=== PATIENT | female | born 1980 | race Caucasian/White ===

== ENCOUNTER 2022-02-23 07:42 | Outpatient (REF) | payer BC, SELFPAY ==
[2022-02-23 08:06] LABS: MANUAL DIFF FLAG NO
[2022-02-23 08:31] LABS: Basophils Percent Auto 0.9 % (0-2); Eosinophils Percent Auto 0.6 % (0-4); Hematocrit 39.6 % (37.0-47.0); Hemoglobin 13.4 g/dl (12.0-16.0); Imm Gran Abs Auto 0.01 X10*3/uL (0.00-0.03); Imm Gran Pct Auto 0.3 % (0.0-0.4); Lymphocytes Absolute Auto 1.5 X10*3/uL (1.2-4.9); Lymphocytes Percent Auto 45.2 % (20-40); Mean Corpuscular HGB Conc 33.8 g/dl (31.0-35.0); Mean Corpuscular Hemoglobin 31.2 pg (27.0-33.0); Mean Corpuscular Volume 92.3 fL (80.0-98.0); Monocytes Absolute Auto 0.3 X10*3/uL (0.1-1.2); Monocytes Percent Auto 8.4 % (2-11); Neutrophils Absolute Auto 1.4 x10*3/uL (2.0-8.3); Neutrophils Percent Auto 44.6 % (45-73); Platelet Count 206 X10*3/uL (160-400); Red Blood Count 4.29 X10*6/uL (4.20-5.50); White Blood Count 3.2 X10*3/uL (4.8-10.8)
[2022-02-23 08:54] LABS: Alanine Aminotransferase 12 U/L (0-31); Albumin Level 4.4 g/dL (3.5-5.0); Alkaline Phosphatase 72 U/L (39-117); Anion Gap 11 (12-20); Aspartate Amino Transferase 19 U/L (5-31); Bilirubin Total 0.7 mg/dL (0.0-1.0); Blood Urea Nitrogen 11 mg/dL (9-16); Calcium 9.7 mg/dL (8.4-10.2); Carbon Dioxide 26 mmol/L (22-29); Chloride 106 mmol/L (96-108); Cholesterol 198 mg/dL; Estimated Glomerular Filt Rate > 60; Glucose Fasting 100 mg/dL (60-99); HDL Cholesterol 57 mg/dL; LDL Cholesterol Calculated 132 mg/dl; Potassium 4.3 mmol/L (3.3-5.1); Sodium 139 mmol/L (135-145); Total Protein 7.1 g/dL (6.5-8.0); Triglycerides 49 mg/dL
== END 2022-02-23 07:43 | disposition home or self-care (01) ==
LOC: HO.LAB 07:42
PROVIDERS: PCP Internal Medicine; Visit Provider Nurse Practitioner Family
DX: I10 Essential (primary) hypertension (principal); E78.00 Pure hypercholesterolemia, unspecified
CPT/HCPCS: 36415; 80053; 80061; 85025

== ENCOUNTER 2022-03-16 14:36 | Outpatient (REF) | payer BC, SELFPAY ==
[2022-03-16 14:46] LABS: MANUAL DIFF FLAG NO
[2022-03-16 15:32] LABS: Basophils Percent Auto 0.7 % (0-2); Eosinophils Percent Auto 0.7 % (0-4); Hemoglobin 13.3 g/dl (12.0-16.0); Imm Gran Abs Auto 0.01 X10*3/uL (0.00-0.03); Imm Gran Pct Auto 0.2 % (0.0-0.4); Lymphocytes Absolute Auto 1.9 X10*3/uL (1.2-4.9); Lymphocytes Percent Auto 30.8 % (20-40); Mean Corpuscular HGB Conc 33.3 g/dl (31.0-35.0); Mean Corpuscular Hemoglobin 30.4 pg (27.0-33.0); Mean Corpuscular Volume 91.3 fL (80.0-98.0); Monocytes Absolute Auto 0.4 X10*3/uL (0.1-1.2); Monocytes Percent Auto 6.5 % (2-11); Neutrophils Absolute Auto 3.8 x10*3/uL (2.0-8.3); Neutrophils Percent Auto 61.1 % (45-73); Platelet Count 244 X10*3/uL (160-400); Red Blood Count 4.38 X10*6/uL (4.20-5.50); Red Cell Distribution Width 11.8 % (11.0-16.0); White Blood Count 6.1 X10*3/uL (4.8-10.8)
[2022-03-16 16:00] LABS: Anion Gap 11 (12-20); Blood Urea Nitrogen 11 mg/dL (9-16); Calcium 9.8 mg/dL (8.4-10.2); Carbon Dioxide 28 mmol/L (22-29); Chloride 104 mmol/L (96-108); Estimated Glomerular Filt Rate > 60; Glucose Random 85 mg/dL (60-115); Potassium 4.3 mmol/L (3.3-5.1); Sodium 139 mmol/L (135-145)
== END 2022-03-16 14:37 | disposition home or self-care (01) ==
LOC: HO.LAB 14:36
PROVIDERS: PCP Internal Medicine; Visit Provider Nurse Practitioner Family
DX: D70.9 Neutropenia, unspecified (principal); I10 Essential (primary) hypertension
CPT/HCPCS: 36415; 80048; 85025

== ENCOUNTER 2022-04-05 13:57 | Outpatient (REF) | payer BC, SELFPAY ==
--- NOTE | 2022-04-05 16:15 | MHC.AU.ANR ---
Adult Audiological Evaluation Date of Visit: 04/05/22 Reason for Appointment: Audiological evaluation due to concern for decreased hearing. Ms. Moralez reports that her family feels she hasn't been hearing well for about five years and is often asking for repetition. She notes difficulties hearing in the car when her daughter is talking from the backseat. Otherwise she feels she hears well. Does patient feel they have a hearing loss?: Yes If Yes, Which Ear?: Both Ears When Was Hearing Difficulty First Noticed?: ~5 years ago Has hearing been tested previously?: No Hearing Handicap Inventory: HHIE SCORE: 8 Based on HHIE score, patient has: No perceived hearing handicap Medical History: Medical History: Seizure Disorder Medical History (Other): ~1986 Basilar Migraines, Suspected TIA in February 2022 Medication List: Lamictal, Lexapro, Folic Acid, Lipitor, Plavix, Aspirin Otoscopy: Right Ear: Unremarkable Left Ear: Unremarkable Tympanometry: Tympanometry performed due to: To assess integrity of the middle ear system Right Ear: Normal Middle Ear System (Type A) Left Ear: Normal Middle Ear System (Type A) Hearing Evaluation: Transducer(s) Used: Insert Earphones Method: Conventional Audiometry Stimuli Used: Pure Tones Right Ear: Description of Hearing: Normal hearing from 250-8000 Hz. Left Ear: Description of Hearing: Normal hearing from 250-8000 Hz. Speech Recognition Threshold (SRT): Method Used: Monitored Live Voice Stimuli Used: Spondee Words Right Ear: 5 dBHL Left Ear: 5 dBHL Word Discrimination: Method: Recorded Lists Word Lists Used: NU-6 Right Ear: 96% at 45 dBHL Left Ear: 100% at 45 dBHL QuickSIN: -2 dB SNR loss when presented binaurally at 55 dBHL, indicating normal ejsrcv-yu-wwvwl understanding abilties. Results indicated she May hear better than normals hear in noise Interpretation of Results: Today's evaluation indicates normal hearing sensitivity, normal middle-ear function, excellent speech understanding abilities in quiet at a soft conversational level, and excellent lldipl-xn-wkeuj understanding bilaterally. Recommendations: No further audiological action is indicated at this time. Audiological re-evaluation if changes are noted. Diagnosis: Primary Diagnosis: Z01.10 Hearing or vestibular exam without abnormal findings Secondary Diagnosis: H93.293 Abnormal Auditory Perception Services Performed: Services Performed: Pure Tone- Air (CPT 40533) Speech Audiometry Threshold, with Speech Recognition (CPT 39564) Tympanometry (CPT 90596) Unlisted Otorhinolaryngological Service or Procedure (CPT 41155) Signature: Provider: Annalisa Restrepo, CCC-A
== END 2022-04-05 13:58 | disposition home or self-care (01) ==
LOC: HO.SH 13:57
PROVIDERS: Visit Provider Nurse Practitioner Family
DX: Z01.118 Encounter for examination of ears and hearing with other abnormal findings (principal); H93.293 Other abnormal auditory perceptions, bilateral
CPT/HCPCS: 92552; 92556; 92567; 92700

== ENCOUNTER 2024-05-03 11:29 | Outpatient (AMB) | payer OTHER, SELFPAY ==
--- NOTE | 2024-05-03 11:40 | MHC.OFFWIV ---
Intake Vital Signs 05/03/24 11:49 Height 5 ft 7 in Weight 150 lb 4 oz BMI 23.5 BP 114/68 Blood Pressure Location Rt brachial Position Sitting Respiration 12 Pulse 80 Pulse Source Pulse Oximeter Pulse Oximetry (%) 97 Oxygen Delivery Method Room Air Intake Visit Reasons: est/ rash upper body and on legs Intake Note: Rash on upper body and legs. Patient Tobacco Use Status: Never used Tobacco Allergies No Known Allergies Allergy (Verified 05/03/24 11:42) Medication List - Last Reconciled 05/03/24 by PIERCE Mays anastrozole 1 mg PO DAILY atorvastatin 20 mg PO DAILY fluoxetine 40 mg PO DAILY folic acid 10 mg PO DAILY lamotrigine ER (Lamictal XR) 600 mg PO BEDTIME multivitamin 1 tab PO DAILY triamcinolone acetonide 0.1% 1 appl topical BID 10 days vitamins A and D 1 cap PO DAILY Do you need a note to return to daycare/school/sports/work: No HPI HPI Comments History of Present Illness Details This is a 43-year-old female with a past medical history of breast cancer, seizures , TIA, depression and anxiety presenting for a rash. She noticed the rash about 2 weeks ago. She described it as tiny bumps on the upper back, the back of her neck and spreading a little to the tops of her arms. It is not itchy or painful. She has been using several types of sunscreen when she is outside. No other new exposures. No fevers or chills. No treatments attempted. PFSH Surgical History No pertinent past surgical history Family History Father No problems noted. Mother No problems noted. Maternal Grandfather FH: prostate cancer Brother Pure hypercholesterolemia Family/Other FH: mental illness Maternal Uncle FH: mental illness Social History Housing: House Patient Tobacco Use Status: Never used Tobacco e-Cigarette/Vaping Use: Never Used Second Hand Smoke Exposure: No service: No Current occupational status: employed Current occupational exposures/hazards: No Cognitive needs: No Hearing needs: No Vision needs: Yes Review of Systems Const Details: Constitutional: No fever or chills ENT: No sneezing, congestion, runny nose or sore throat. Respiratory: No cough Physical Exam Vital Signs: Last Vital Signs Pulse 80 05/03/24 11:49 Resp 12 05/03/24 11:49 BP 114/68 05/03/24 11:49 Pulse Ox 97 05/03/24 11:49 Oxygen Delivery Method Room Air 05/03/24 11:49 BMI result Body Mass Index 23.5 Const Other: Constitutional: Alert, in no distress. Mouth/Throat: No oral lesions. No erythyema or exudates. Neck: Supple, Full range of motion. No lymphadenopathy. Skin: rash comprised of tiny papules on the upper back, neck and less prominently noted on the chest and upper arms Assessment & Plan Assessment & Plan (1) Dermatitis: Code(s): L30.9 - Dermatitis, unspecified Plan: Nonspecific appearing dermatitis. Wash areas with cleanser. Keep clean and dry. Do this after application of sunscreens and lotions and use hypoallergenic formulas. Rx Triamcinolone cream BID x 10 days to affected areas (do not apply to face). Topical steroid side effects reviewed. Follow up with primary care provider if there is no resolution or worsening symptoms. Medications: New triamcinolone acetonide 0.1% 1 appl topical BID 10 days 30 grams 0RF Coding Level of Care Code Est Pt Level 3 (28606) Diagnoses Dermatitis L30.9
[2024-05-03 11:49] VITALS: BP 114/68; PULSE 80; RESP 12; O2SAT 97; BMI 23.5
== END 2024-05-03 17:05 ==
PROVIDERS: PCP Internal Medicine; Visit Provider Physician Assistant Medical
DX: L30.9 Dermatitis, unspecified (principal)
CPT/HCPCS: 99213

== ENCOUNTER 2024-09-03 13:54 | Outpatient (AMB) | payer OTHER, SELFPAY ==
--- NOTE | 2024-09-03 13:52 | MHC.PC.OV ---
Vital Signs 09/03/24 14:07 Height 5 ft 7 in Weight 153 lb BMI 24.0 BP 90/60 Blood Pressure Location Rt brachial Position Sitting Pulse 64 Pulse Source Pulse Oximeter Pulse Oximetry (%) 99 Oxygen Delivery Method Room Air Intake Visit Reasons: markie from [facility] Intake Note: New patient visit Freight Caller Required: No Allergies No Known Allergies Allergy (Verified 09/03/24 13:53) Tobacco use date assessed: 09/03/24 Dental Screening Dental Screen Date: 09/03/24 Did you have a dental visit in the last 12 months?: Yes Did you have a dental problem in the last 6 months where you did not have access to dental care?: No Was dental information given to patient?: Patient has dentist HPI HPI Comments History of Present Illness Details This is a 43-year-old female with a past medical history of breast cancer, neutropenia, TIA, alcoholism in remission, focal and partial seizures and anxiety with depression presenting to [facility]. She transferred from Dr. Mcelroy at [facility]. She signed a release for medical records, but we have not received her recent medical records yet. She was diagnosed with breast cancer in 04/02/2022. She is followed by Dr. Childs. She has follow up every 6-[address] Resendez is her neurologist. No recent seizures. She is on lamotrigine. Thyroid nodule-Dr. Radha Harley. Two nondiagnostic biopsies. She had just had another ultrasound, and they are monitoring this. She has essential tremor of her upper extremities. She had an MRI of the brain for evaluation of symptoms, and this was normal. She has a telehealth therapist in [place] who is great. She is on fluoxetine 40 mg for anxiety and depression which is working well. Patient's , Justin, has metastatic prostate cancer. Currently doing well on his medications and PSA decreased significantly. Patient has a teenage daughter. Hyperlipidemia is treated with 20 mg of atorvastatin. ROS: Constitutional: No unexplained weight loss, fever, chills. Respiratory: No shortness of breath, cough or sputum production. Cardiovascular: No chest pain, chest pressure or chest discomfort. No palpitations or pedal edema. Gastrointestinal: No anorexia, nausea, vomiting or diarrhea. No abdominal pain Neurologic: No headache, dizziness, syncope Psychiatric: No SI/HI. Physical exam: Constitutional: Alert, in no distress. Neck: Supple, Full range of motion. No lymphadenopathy. Respiratory: Clear to auscultation. Cardiovascular: S1 S2 regular. No murmurs.. Psychiatric: Normal mood and affect [facility] Medical History (Updated 09/03/24 @ 17:54 by PIERCE Mays) Essential tremor Thyroid nodule Depression with anxiety Pure hypercholesterolemia Breast cancer Surgical History No pertinent past surgical history Family History Father No problems noted. Mother No problems noted. 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 Current occupational exposures/hazards: No Cognitive needs: No Hearing needs: No Vision needs: Yes Questionnaire Thrive Questionnaire Date Thrive assessed: 08/31/24 I am a: Patient What is your living situation today?: I have a steady place to live Within the past 12 months, did the food you bought not last and you didn't have the money to get more?: Never true Within the past 12 months, did you worry whether your food would run out before you got money to buy more?: Never true Do you have trouble paying for medicines?: No Do you have trouble getting transportation to medical appointments?: No Do you have trouble paying your heating and electricity bill?: No Do you have trouble taking care of your child, family member or friend?: No Do you have trouble with day-to-day activities such as bathing, preparing meals, shopping, managing finances, etc.?: No Are you currently unemployed and looking for a job?: No Are you interested in more education?: No Please select the resources that you would like help with: None Currently or been in a relationship where the following occur: No concerns reported THRIVE Score: 0 AUDIT C Alcohol Use Questionnaire (AUDIT-C) 1. How often do you have a drink containing alcohol?: Never 3. How often do you have six or more drinks on one occasion?: Never Total Score: 0 FERNANDA-7 AMB Questionnaire FERNANDA-7 Date FERNANDA - 7 assessed: 03/16/22 Feeling nervous, anxious, or on edge: 1 = Several days Not being able to stop or control worryin = Not at all Worrying too much about different things: 1 = Several days Trouble relaxin = Several days Being so restless that it is hard to sit still: 0 = Not at all Becoming easily annoyed or irritable: 1 = Several days Feeling afraid as if something awful might happen: 1 = Several days Total FERNANDA-7 score (0-4 normal; 5-9 mild; 10-14 moderate; 15-21 severe): 5 Source: Developed by Drs. Dipesh Woodard, Jocelyne Davalos, Rick Overton and colleagues, with an educational chris from [employer]. FERNANDA-7 Assessment Billing FERNANDA-7 Assessment Tool: FERNANDA-7 Assessment 14164 Physical exam (Primary Care) Vital Signs: Last Vital Signs Pulse 64 09/03/24 14:07 BP 90/60 09/03/24 14:07 Pulse Ox 99 09/03/24 14:07 Oxygen Delivery Method Room Air 09/03/24 14:07 BMI result Body Mass Index 24.0 Tobacco/Smoking Status: Tobacco use Status Tobacco use date assessed 09/03/24 09/03/24 14:11 Patient Tobacco Use Status Never used Tobacco 09/03/24 13:53 e-Cigarette/Vaping Use Never Used 09/03/24 13:53 Thrive Assessment: Date of Thrive Assessment Date Thrive assessed 08/31/24 09/03/24 13:53 Currently or been in a relationship where the following occur: No concerns reported Coding Level of Care Code Est Pt Level 4 (65428) Complex EM visit Add On G2211 Diagnoses Breast cancer C50.919 Focal and partial seizures G40.109 Pure hypercholesterolemia E78.00 Depression with anxiety F41.8 Thyroid nodule E04.1 Additional Codes FERNANDA-7 Assessment Billing - FERNANDA-7 Assessment Tool: FERNANDA-7 Assessment 68678 ([id number]) Assessment & Plan Assessment & Plan (1) Breast cancer: Code(s): C50.919 - Malignant neoplasm of unspecified site of unspecified female breast Category: Medical (2) Focal and partial seizures: Code(s): G40.109 - Localization-related (focal) (partial) symptomatic epilepsy and epileptic syndromes with simple partial seizures, not intractable, without status epilepticus Category: Medical (3) Pure hypercholesterolemia: Code(s): E78.00 - Pure hypercholesterolemia, unspecified Category: Medical (4) Depression with anxiety: Code(s): F41.8 - Other specified anxiety disorders Category: Medical (5) Thyroid nodule: Code(s): E04.1 - Nontoxic single thyroid nodule Category: Medical Plan Patient will have fasting labs done. She will schedule a physical exam. She will continue routine follow up with her specialists. Depression and anxiety are currently under control on fluoxetine. She is also in therapy. Continue current medications. Orders: Orders Lipid Panel Today C50.919 - Malignant neoplasm of unspecified site of unspecified female breast, D70.9 - Neutropenia, unspecified, E78.5 - Hyperlipidemia, unspecified, G40.109 - Localization-related (focal) (partial) symptomatic epilepsy and epileptic syndromes with simple partial seizures, not intractable, without status epilepticus, G45.9 - Transient cerebral ischemic attack, unspecified, Z13.6 - Encounter for screening for cardiovascular disorders Vitamin D 1,25 dihydroxy Today C50.919 - Malignant neoplasm of unspecified site of unspecified female breast, D70.9 - Neutropenia, unspecified, G40.109 - Localization-related (focal) (partial) symptomatic epilepsy and epileptic syndromes with simple partial seizures, not intractable, without status epilepticus, G45.9 - Transient cerebral ischemic attack, unspecified, Z13.6 - Encounter for screening for cardiovascular disorders Comprehensive Met. Panel Today C50.919 - Malignant neoplasm of unspecified site of unspecified female breast, D70.9 - Neutropenia, unspecified, G40.109 - Localization-related (focal) (partial) symptomatic epilepsy and epileptic syndromes with simple partial seizures, not intractable, without status epilepticus, G45.9 - Transient cerebral ischemic attack, unspecified, Z13.6 - Encounter for screening for cardiovascular disorders TSH reflex Free T4 Today C50.919 - Malignant neoplasm of unspecified site of unspecified female breast, D70.9 - Neutropenia, unspecified, G40.109 - Localization-related (focal) (partial) symptomatic epilepsy and epileptic syndromes with simple partial seizures, not intractable, without status epilepticus, G45.9 - Transient cerebral ischemic attack, unspecified, Z13.6 - Encounter for screening for cardiovascular disorders
[2024-09-03 14:07] VITALS: BP 90/60; PULSE 64; O2SAT 99; BMI 24.0
== END 2024-09-03 14:55 | disposition home or self-care (01) ==
PROVIDERS: PCP Physician Assistant Medical; Visit Provider Physician Assistant Medical
DX: C50.919 Malignant neoplasm of unspecified site of unspecified female breast (principal); G40.109 Localization-related (focal) (partial) symptomatic epilepsy and epileptic syndromes with simple partial seizures, not intractable, without status epilepticus; E78.00 Pure hypercholesterolemia, unspecified; F41.8 Other specified anxiety disorders; E04.1 Nontoxic single thyroid nodule

== ENCOUNTER → 2024-09-03 13:54 | Outpatient (BNVA) | payer OTHER, SELFPAY | PROVIDERS: PCP Physician Assistant Medical; Visit Provider Physician Assistant Medical | DX: C50.919 Malignant neoplasm of unspecified site of unspecified female breast (principal); G40.109 Localization-related (focal) (partial) symptomatic epilepsy and epileptic syndromes with simple partial seizures, not intractable, without status epilepticus; E78.00 Pure hypercholesterolemia, unspecified; F41.8 Other specified anxiety disorders; E04.1 Nontoxic single thyroid nodule | CPT/HCPCS: 96127 ==

== ENCOUNTER 2024-11-17 08:58 | Outpatient (REF) | payer OTHER, SELFPAY ==
--- OUTSIDE RECORDS SUMMARY | 2024-11-17 09:01 | XMS_ITS | Continuity of Care Document ---
Author Organization [facility] [address] [place] [address] Phone [phone] Care Team Providers Care Branch Officer Name Role Phone Nolvia Mcelroy M.D. Care Team Information Receive r [phone] Problems Active Problems Provider Date Multinodular goiter PIERCE Perales Onset: Anxiety disorder PIERCE Perales Onset: 10/19 Carcinoma of breast PIERCE Perales Onset: Hyperlipidemia PIERCE Perales Onset: 2022 Seizure disorder PIERCE Perales Onset: 10/19 Transient cerebral ischemia PIERCE Perales O nset: 10/19/2023 Social History Type Date Description Comments Sex Unknown Tobacco Use Start: Unknown Never Smoked Cigarettes Smoking Status Reviewed: 10/19/23 Never Smoked Cigaret uma ETOH Use Has consumed alcohol in the past Allergies and adverse reactions Active Allergies Criticality Reaction Severity Comments Date Emend Injection Unable to assess criticality Chest Tightness 10/19/2023 Medications Active Medications SIG Qnty Indications Ordering Provider Date Fluoxetine [id number] Tablets Take 3 Tablet By Mouth Daily Elise Ledezma M.D. 01/19/2024 Lamotrigine [id number] Tablets ER 24HR Take 2 Tablets By Mouth Every Day For 90 Days Lisa Resendez MD Atorvastatin [id number] Tablets Take 1 Tablet By Mouth Daily After Supper Nolvia Mcelroy M.D. Folic [id number] Tablets Take 1 Tablet By Mouth Every Day Lisa Resendez MD [id number] Tablets Take 1 Tablet By Mouth Every Day Unknown Vital Signs Date Vital Result Comment 07/18/2024 9:05am BP Systolic 110 mmHg BP Diastolic 62 mmHg Heart Rate 98 /min Height 67 inches 5'7 Weight 154.25 lb BMI (Body Mass Index) 24.2 kg/m2 Results Test Acquired Date Facility Test Result H/L Range N ote TSH+Free T4 07/18/2024 [facility] TSH 1.030 uIU/mL 0.450-4.50 0 T4,Free(Direct) 1.06 ng/dL 0.82- 1.77 Laboratory test finding 01/23/2024 [facility] TSH reflex to T4F 0.915 uIU/mL 0.450-4.50 0 Laboratory test finding 01/23/2024 [facility] Thyroid Peroxidase (Tpo) Ab <9 IU/mL 0-34 Medical Devices Description No Information Available Encounters Type Date Location Provider Dx Diagnosis Office Visit 07/18/2024 9:15a Main Office PIERCE Perales E04.2 Nontoxic mult inodular goiter Assessments Date Code Description Provider 07/18/2024 E04.2 Nontoxic multinodular goiter PIERCE Perales Plan of Treatment Future Appointment(s):* 01/17/2025 8:45 am - PIERCE Perales at Main Office 07/18/2024 - PIERCE Perales* E04.2 Nontoxic multinodular goiter* New Xrays: * Ultrasound Thyroid, Scheduled: 08/07/24 Functional Status Description No Information Available Mental Status Description No Information Available Referrals Description No Information Available
--- OUTSIDE RECORDS SUMMARY | 2024-11-17 09:01 | XMS_ITS | Data Portability ---
Author Organization [place] - [facility] Address [address] [place] [id number] Care Team Providers Care Activities Volunteer Name Role Phone SHAHIDA JONES Primary Care Provider [phone] Assessment Encounter Date Assessment Date Assessment LastModified by Organization Details LastModified Time 01/07/2020 01/07/2020 Overview/History : 39 yo female new to and this provider who presents for evaluation of flu like symptoms X1d; patient reports fever, chills, generalized body aches; nasal congestion, cough. Denies shortness of breath or chest tightness, abdominal pain, nausea, or vomiting. Patient reports taking tylenol and ibuprofen for her symptoms with good results Comorbidities: HLD, epilepsy Exam: young female, appears fatigued but otherwise well, no acute distress, non-toxic appearance; alert and oriented X4; ambulates independently without difficulty Mucous membranes are pink and moist without lesions; Oropharynx without erythema or exudate. Nasal mucosa is pink and moist; nasal passages are patent bilaterally; ear canals are clear without erythema or discharge bilaterally; TMs are pearly rosado, non-bulging, non-erythematous; no cervical lymphadenopathy mild tachycardia; Heart sounds are regular rate and rhythm; no audible murmurs, rubs, or gallops No signs of respiratory distress. Lungs are clear to auscultation in all fileds No edema, erythema or cyanosis of cyanosis DDx considered, but not limited to: URI sinusitis - most likely viral; sx for 1d Influenza - will order rapid flu Bronchitis - cough X1d Pneumonia - unlikely; cough is dry, lungs are clear to auscultations; cough x1d Work up/Results: rapid flu Plan/Discussion: - rapid flu positive for influenza type A - advised patient to rest; stay hydrated; tylenol and ibuprofen for pain and fever prn; - advised on flu precautions - patient was offered Tamiflu but refused after side effects were discussed - follow up with PCP as needed within 5-7 days or sooner if symptoms worsen or do not improve - advised when to seek immediate medical attention/911/ED - patient expressed understanding and agreed to tx plan In order to obtain further information and compare any laboratory results/values, I have accessed patient records on the [employer]. This information was pertinent in my medical decision making today. Time On Scene with Patient: 00:24:12 claribel Not available 01/07/2020 15:38:48 06/02/2020 06/02/2020 Overview/History :T is a 39-year-old female that contacted [facility] because she has been having body aches and fatigue for the past 36 hours. She was diagnosed with influenza in December. She also believes she had COVID 19 at that time. She recently had some blood work done and was entered into a study, she was told that she had antibodies for COVID-19. Exam: Physical exam is grossly benign. Patient is afebrile and hemodynamically stable. Lungs clear bilaterally, heart rate regular. Overall well appearing. DDx considered, but not limited to:Viral illness possible however patient does not have a fever and no other concerning symptoms other than body aches. Musculoskeletal strain considered but pt denies vigorous activity. body aches maybe due to menstrual cycle. Dehydration also considered however lab work checked in the home today is within normal limits. Work up/Results:Electro lytes within normal limits, normal kidney function. Plan/Discussion:I discussed with the patient that I did not find anything concerning on her physical exam, that her vital signs were normal and her lab work that I checked today is also normal. I reassured her that I do not feel that she has any acute process going on presently. No indication to swab for COVID-19 at this time however the patient tells me she plans to go on vacation to [place] and will need a test prior to this trip so she may consider contacting [facility] again for that. If symptoms linger or get worse should follow up with PCP. In order to obtain further information and compare any laboratory results/values, I have accessed old patient records. This information was pertinent in my medical decision making today. Time On Scene with Patient: 00:39:19 Not available 06/02/2020 16:46:38 Plan of Treatment Reminders Order Date Submit Date Provider Last Modified By Organization Details Last Modified Time Details Appointments None recorded. Lab rapid flu (A+B) 2019 020 claribel [facility] - Home, [address] [place], [address], 0 14:15:10 creatinin e, blood 2019 020 tom [facility] - Home, [address] [place], [address], 0 14:58:34 6+ iStat 2019 tom 31 [facility] - Home, [address] [place], [address], 0 14:58:33 Referral None recorded. Procedures None recorded. Surgeries None recorded. Imaging None recorded. Medication Orders Tessalon Perles 100 mg capsule 2019 020 INTERFACE [id number], [address] [place], [address], 0 14:15:15 Patient TargetsNo targets recorded. Patient Instructions Encounter Date Encounter Id Patient Instructions Last Modified By Organization Details Last Modified Time 01/07/2020 [id number] Influenza Discha rge Instructions Basic Information Influenza is a viral infection of the nose, throat and lungs. It usually comes on suddenly. The most common symptoms are chills, headache, fever, sore throat, dry cough, body aches, weakness and fatigue. Occasionally, people will have vomiting and diarrhea. Influenza is spread when droplets from an infected person are coughed or sneezed into the air, allowing healthy persons to breathe in these fine droplets and become infected. A patient with influenza will have millions of flu viruses contaminating their hands and face as well. The influenza virus can live up for 2 days on objects such as door knobs, grocery cart handles, elevator buttons, telephones, table tops etc. It is highly contagious. In addition, symptoms of influenza do not start until 2 days after the virus enters the body, so an infected person is contagious before they know that they are sick. A flu patient remains contagious for 24 hours after fever ends. Since it is a virus, antibiotics do not help. Instructions Medications: -Ibuprofen (or other non steroidal antiinflammatory drugs) and Tylenol are very important to help with the body aches and fever. People with influenza will often run high fevers for 5 days straight. High fevers are a major cause of dehydration in influenza, so trying to control fever is very important. Be sure to carefully read the bottles for the correct dosing (especially in children) instructions. -Nausea medicine may be prescribed: use as directed -Antiviral medicine may be prescribed. It is important to know that although these medicines are advertised to shorten the course of influenza, studies show that they reduce length of symptoms by only about ?? a day in adults and 1 day in children. Your provider will discuss whether this medicine is recommended for you. If it is prescribed, be sure to take the entire course as written. -Intravenous (IV) fluids: Your Provider may have determined that you need some IV fluids for your symptoms. IV fluids will help reduce fever and improve dehydration. Self Care: -Oral hydration. Drink plenty of fluids to stay hydrated. Fever itself can make you dehydrated so you really need to stay on top of this. Fluids such as broth and gatorade are recommended. -Solid food. You will very likely have a poor appetite for solid food: this is OK and as long as you can continue to take plenty of fluids, do not worry if you do not take solid food for a few days. -Rest. Get plenty of rest. Do not push yourself to do more than your body is telling you as this can make you sicker. -Prevent spread of the influenza. Cover your mouth and nose when you cough and sneeze. Try to maintain a 6 foot distance from others. Consider wearing a surgical mask, especially around family members who may have chronic illnesses. Wash your hands often. Don? t leave dirty tissues around the home. Seek Care Immediately if you -develop very rapid breathing or shortness of breath -become pale -pass out -cannot tolerate liquids by mouth -develop chest pain -become confused -develop rash -become confused -and for children, if they become so irritable that they are inconsolable have total resolution of your symptoms after 5-7 days and then become sick again with fever or any of the above symptoms If you have additional concerns or develop a change in your condition between 8am-10pm, please call [facility] at [phone] to help navigate your care. [email or web address] Not available 01/07/2020 14:17:07 Reason for Referral None Reported. Results Created Date Observation Date Name Description Value Unit Range Abnormal Flag Note LastModifiedBy Organization Detail LastModifiedTime 06/02/2020 6+ iStat Na 140 mmol/ L 138-14 6 Not Available Spr - Home [address] [place], [address], 06/02/2020 14:51:51 06/02/2020 6+ iStat K 3.7 mmol/ L 3.5-4. 9 Not Available Spr - Home [address] [place], [address], 06/02/2020 14:51:51 06/02/2020 6+ iStat cL 105 mmol/ L 98-109 Not Available Spr - Home [address] [place], [address], 06/02/2020 14:51:51 06/02/2020 6+ iStat BUN 11 mg/dL 8-26 Not Available Spr - Home [address] [place], [address], 06/02/2020 14:51:51 06/02/2020 6+ iStat glu 121 mg/dL 70-105 Not Available Spr - Home [address] [place], [address], 06/02/2020 14:51:51 06/02/2020 6+ iStat HCT 36 %_pcv 37-47 Not Available Spr - Home [address] [place], [address], 06/02/2020 14:51:51 06/02/2020 6+ iStat Hb 12.2 g/dL 12-17 Not Available Spr - Home [address] [place], [address], 06/02/2020 14:51:51 06/02/2020 creat inine , blood crea 0.7 mg/dL 0.6-1. 3 Not Available Spr - Home [address] [place], [address], 06/02/2020 14:51:45 01/07/2020 rapid flu (A+B) Flu A positi ve Not Available Spr - Home [address] [place], [address], 01/07/2020 13:58:48 01/07/2020 rapid flu (A+B) Flu B negati ve Not Available Spr - Home [address] [place], [address], 01/07/2020 13:58:48 01/07/2020 rapid flu (A+B) Control Visual ized / Valid Not Available [facility] - Home [address] [place], [address], 01/07/2020 13:58:48 Result Notes None recorded. Procedures Surgical History Date Name Laterality Status Provider Name and Address Organization Details Recorded Time 06/02/20 20 Venipuncture - DH completed JEREMY ESCOBEDO NP [address] [place], [address], [place] [facility] 06/02/2020 16:41:52 Imaging Results None recorded. Procedure Notes None recorded. Medical Equipment None Reported. Allergies No known drug allergies Medications Name Sig Start Date Stop Date Status Note LastModified by Organization Details LastModified Time azithromycin 250 mg tablet 01/07 completed Not Available Not Available Not Available phenazopyrid ine 200 mg tablet 01/07 completed Not Available Not Available Not Available terconazole 0.8 % vaginal cream 01/07 completed Not Available Not Available Not Available folic acid 400 mcg tablet 01/07 completed Not Available Not Available Not Available sulfamethoxa zole 800 mg-trimethop rim 160 mg tablet 01/07 completed Not Available Not Available Not Available benzonatate 100 mg capsule Take 1 capsule 3 times a day by oral route for 7 days. active Not Available Not Available No t Available folic acid 1 mg tablet active Not Available Not Available No t Available escitalopram 10 mg tablet active Not Available Not Available Not Available nitrofuranto in monohydrate/ macrocrystal s 100 mg capsule 01/07 completed Not Available Not Available Not Available lamotrigine ER 300 mg tablet,exten ded release 24 hr active Not Available Not Available Not Available selenium sulfide 2.5 % lotion 01/07 completed Not Available Not Available Not Available Vitals Date Recorded Oxygen saturation Oxygen saturation in Arterial blood by Pulse oximetry Body temperature Heart rate Respiratory rate Systolic blood pressure Diastolic blood pressure Provider Name and Address Organization Details Last Updated DateTime 0 98 % 98 % 99.1 [degF] 102 /min 17 /min 120 mm[Hg] 76 mm[Hg] Not Available [facility] 0 14:06:05 Date Recorded Respiratory rate Heart rate Body temperature Oxygen saturation Oxygen saturation in Arterial blood by Pulse oximetry Systolic blood pressure Diastolic blood pressure Provider Name and Address Organization Details Last Updated DateTime 0 14 /min 80 /min 97.1 [degF] 98 % 98 % 130 mm[Hg] 80 mm[Hg] Not Available [facility] 0 14:40:42 Social History Question Answer Notes LastModified by Organizat ion Details LastModified Time Tobacco Smoking Status Never Smoker PIERCE MARISCAL [address] [place], [address], [place] - [facility] 01/07/2020 14:25:48 Excessive Alcohol Or Drug Use No nyuzych Information not available 01/07/2020 Sex: Unknown Functional Status None recorded. Mental Status None recorded. Family History Relationship Description Onset Age of this Age Resolved Age Notes LastModified by Organization Details LastModified Time Father No current problems or disability [email or web address] Not available 01/07 14:00:45 Mother No current problems or disability [email or web address] Not available 01/07 14:00:45 Medical History Condition Response Diabetes N Coronary Artery Disease N High Cholesterol Y Cancer N Pulmonary Embolism N Stroke N Hypertension N Asthma N COPD N Depression N Kidney Disease N Gynecological HistoryNo gynecological history recorded. Obstetrics History GPAL:G 0 P 0 0 0 0 Past Encounters Encounter ID Performer Location Encounter Start Date Encounter Closed Date Diagnosis/Indication Diagnosis SNOMED-CT Code Diagnosis ICD10 Code Diagnosis Note [id number] PIERCE MARISCAL [facility] - HOME [address] [place] [address] 01/07/2020 13:55:47 01/08/2020 10:18:20 Influenza-like illness 86461484 B34.9 Dry cough 76655370 R05 Influenza caused by Influenza A virus 240326233 J09.X2 [id number] JEREMY ESCOBEDO NP [facility] - [facility] [address] [facility] [place] [address] 06/02/2020 14:27:53 06/02/2020 16:56:16 Malaise and fatigue 796302528 R53.81 Health Concerns Section Related Observation LastModified by Organization Detai ls LastModified Time None Recorded Concern Status LastModified by Organization Details LastModified Time None Recorded Advance Directives Directive None Recorded Payers Encounter Date Sequence Insurance Name Policy Number Policy Lawson Covered Member ID Lawson Member ID Guarantor Name 01/07/[address] [facility] Jenn Moralez [id number] Jenn Moralez 06/02/[address] [facility] [id number] Jenn Moralez [id number] Jenn Moralez Notes Date Note Type Note Provider Name and Address Organization Details Recorded Time 01/07/2020 text/html Mrs. Moralez is a [age] yo female new to and this provider who presents for evaluation of flu like symptoms X1d; patient reports fever, chills, generalized body aches; nasal congestion, cough. Denies shortness of breath or chest tightness, abdominal pain, nausea, or vomiting. Patient reports taking tylenol and ibuprofen for her symptoms with good results PIERCE MARISCAL [address], [place], [address], [place] - [facility] 01/07/2020 15:38:54 06/02/2020 text/html This is a 39-year-old female that is known to [facility] but new to this provider. She has a medical history significant for hyperlipidemia and epilepsy. She was seen by [facility] back in December for flu like symptoms. She ultimately was found to be positive for influenza. The patient tells me that at that time she believes she also may have been sick with COVID-19 as she lost her sense of taste and smell. She tells me that she recently had blood work done and was told that she had antibodies to COVID-19. She contacted [facility] today because she has been feeling fatigued and has been having muscle aches for the past 36 hours. She denies fevers but feels she may have had a chill. She has taken ibuprofen with some relief. No other cold symptoms, no shortness of breath and no GI symptoms. The patient does tell me that she is presently on her menses and feels that that may be why she is feeling tired and having body aches. JEREMY ESCOBEDO NP [facility] [place], [address], [place] - [facility] 06/02/2020 16:46:44 OBGyn Episode No OBEpisode recorded.
[2024-11-17 10:32] LABS: Alanine Aminotransferase 45 U/L (0-31); Albumin Level 4.5 g/dL (3.5-5.0); Alkaline Phosphatase 97 U/L (39-117); Anion Gap 10 (12-20); Aspartate Amino Transferase 38 U/L (5-31); Bilirubin Total 0.4 mg/dL (0.0-1.0); Blood Urea Nitrogen 10 mg/dL (9-16); Carbon Dioxide 29 mmol/L (22-29); Chloride 108 mmol/L (96-108); Cholesterol 157 mg/dL (<200); Estimated Glomerular Filt Rate > 60; Glucose Random 96 mg/dL (60-115); HDL Cholesterol 65 mg/dL (>40); LDL Cholesterol Calculated 84 mg/dL (<100); Potassium 4.6 mmol/L (3.3-5.1); Sodium 142 mmol/L (135-145); Total Protein 7.3 g/dL (6.5-8.0); Triglycerides 42 mg/dL (<150)
[2024-11-17 10:48] LABS: TSH reflex Free T4 1.31 uIU/mL (0.32-4.0)
[2024-11-22 01:54] LABS: VITAMIN D (1,25 OH) D3 41 pg/mL; Vit D (1,25-Dihydroxy) Total 41 pg/mL (18-72); Vitamin D (1,25 OH) D2 <8 pg/mL
== END 2024-11-17 08:59 | disposition home or self-care (01) ==
LOC: HO.LAB 08:58
PROVIDERS: PCP Physician Assistant Medical; Visit Provider Physician Assistant Medical
DX: E78.5 Hyperlipidemia, unspecified (principal); C50.919 Malignant neoplasm of unspecified site of unspecified female breast; D70.9 Neutropenia, unspecified; G45.9 Transient cerebral ischemic attack, unspecified; G40.109 Localization-related (focal) (partial) symptomatic epilepsy and epileptic syndromes with simple partial seizures, not intractable, without status epilepticus; Z13.6 Encounter for screening for cardiovascular disorders
CPT/HCPCS: 36415; 80053; 80061; 82652; 84443

== ENCOUNTER 2024-12-17 16:04 | Outpatient (AMB) | payer OTHER, SELFPAY ==
--- NOTE | 2024-12-17 16:08 | MHC.PC.OV ---
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 She was diagnosed with breast cancer in 04/02/2022. Patient in remission. She is followed by Dr. Childs. She was seen recently, and they also discussed elevated liver enzymes which we had messaged about over the portal. She denies abdominal pain, weight loss, anorexia, nausea, vomiting or jaundice. She is going to repeat the tests at the end of the month. Dr. Resendez is her neurologist. No recent seizures. She is on lamotrigine. Thyroid nodule-Dr. Radha Harley. Two nondiagnostic biopsies. They continue to monitor. She has essential tremor of her upper extremities. She had an MRI of the brain for evaluation of symptoms, and this was normal. She has a telehealth therapist in [place] who is great. She is on fluoxetine 40 mg for anxiety and depression which is working well. Patient's , Justin, has metastatic prostate cancer. Currently doing well on his medications and PSA decreased significantly. Patient has a teenage daughter. Patient also says that her therapist indicated she may have mild borderline personality disorder. She has done a lot of work herself over the years. Sober from alcohol for years. Hyperlipidemia is treated with [address] Indu Xiao is her brand coordinator. She is up to date. No family history of colon cancer-screening to begin age 45 unless otherwise indicated. She is referred to Dermatology for a routine skin exam. ROS: Constitutional: No unexplained weight loss, fever, chills, fatigue or night sweats. Eyes: No vision changes, blurry vision, double vision, eye pain, eye redness, eye discharge. ENT: No hearing loss, sneezing, congestion, runny nose or sore throat. Respiratory: No shortness of breath, cough or sputum production. Cardiovascular: No chest pain, chest pressure or chest discomfort. No palpitations or pedal edema. Gastrointestinal: No anorexia, nausea, vomiting or diarrhea. No abdominal pain or blood in stool. Genitourinary: No dysuria, hematuria, urinary frequency. Neurologic: No headache, dizziness, syncope, unilateral weakness, ataxia, numbness or tingling in the extremities. Musculoskeletal: No muscle pain, back pain, joint pain or swelling. Hematologic/Lymphatics: No bleeding or bruising. No painful lymph nodes. Skin: No rash or itching. Endocrine: No cold or heat intolerance. No polyuria or polydipsia. Psychiatric: No SI/HI. Physical exam: Constitutional: Alert, in no distress. Head: Normocephalic. Eyes: Pupils are equal, round and reactive to light. Extraocular muscles intact. Ear, Nose and Throat: Canals clear. TMs normal. Normal nasal mucosa. No nasal discharge. No oral lesions. Neck: Supple, Full range of motion. No lymphadenopathy. No palpable masses. Respiratory: Clear to auscultation. Cardiovascular: S1 S2 regular. No murmurs. No carotid bruits. Gastrointestinal: Abdomen soft, non-tender, non-distended. Normal bowel sounds. No palpable masses. Neurologic: No focal neurological deficits. Symmetric patellar reflexes. Moves all extremities spontaneously. Sensation intact bilaterally. Skin: No rashes. Musculoskeletal: No gross deformities. Normal range of motion. Extremities: Warm and well perfused. No clubbing, cyanosis or edema. 3+ peripheral pulses bilaterally. Psychiatric: Normal mood and affect [facility] Medical History (Updated 12/18/24 @ 16:01 by PIERCE Mays) Routine physical examination Elevated liver enzymes Essential tremor Thyroid nodule Depression with anxiety Pure hypercholesterolemia Breast cancer Surgical History No pertinent past surgical history Family History (Updated 12/17/24 @ 16:12 by Anh Haynes CMA) Father No problems noted. Mother No problems noted. 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 Current occupational exposures/hazards: No Cognitive needs: No Hearing needs: No Vision needs: Yes Questionnaire Thrive Questionnaire Date Thrive assessed: 12/10/24 I am a: Patient What is your living situation today?: I have a steady place to live Within the past 12 months, did the food you bought not last and you didn't have the money to get more?: Never true Within the past 12 months, did you worry whether your food would run out before you got money to buy more?: Never true Do you have trouble paying for medicines?: No Do you have trouble getting transportation to medical appointments?: No Do you have trouble paying your heating and electricity bill?: No Do you have trouble taking care of your child, family member or friend?: No Do you have trouble with day-to-day activities such as bathing, preparing meals, shopping, managing finances, etc.?: No Are you currently unemployed and looking for a job?: No Are you interested in more education?: No Please select the resources that you would like help with: None Currently or been in a relationship where the following occur: No concerns reported THRIVE Score: 0 AUDIT C Alcohol Use Questionnaire (AUDIT-C) 1. How often do you have a drink containing alcohol?: Never Total Score: 0 FERNANDA-7 AMB Questionnaire FERNANDA-7 Date FERNANDA - 7 assessed: 03/16/22 Feeling nervous, anxious, or on edge: 1 = Several days Not being able to stop or control worryin = Several days Worrying too much about different things: 1 = Several days Trouble relaxin = Several days Being so restless that it is hard to sit still: 0 = Not at all Becoming easily annoyed or irritable: 1 = Several days Feeling afraid as if something awful might happen: 1 = Several days Total FERNANDA-7 score (0-4 normal; 5-9 mild; 10-14 moderate; 15-21 severe): 6 Source: Developed by Drs. Dipesh Woodard, Jocelyne Davalos, Rick Overton and colleagues, with an educational chris from [employer]. Physical exam (Primary Care) Vital Signs: Last Vital Signs Pulse 73 12/17/24 16:14 BP 100/72 12/17/24 16:14 Pulse Ox 99 12/17/24 16:14 Oxygen Delivery Method Room Air 12/17/24 16:14 BMI result Body Mass Index 25.6 Tobacco/Smoking Status: Tobacco use Status Tobacco use date assessed 09/03/24 12/17/24 16:15 Patient Tobacco Use Status Never used Tobacco 12/17/24 16:15 e-Cigarette/Vaping Use Never Used 12/17/24 16:15 Thrive Assessment: Date of Thrive Assessment Date Thrive assessed 12/10/24 12/17/24 16:15 Currently or been in a relationship where the following occur: No concerns reported Coding Level of Care Code Est Pt Prev Care 40-64y(61579) Diagnoses Routine physical examination Z00.00 Elevated liver enzymes R74.8 Thyroid nodule E04.1 Depression with anxiety F41.8 Pure hypercholesterolemia E78.00 Breast cancer C50.919 Assessment & Plan Assessment & Plan (1) Routine physical examination: Code(s): Z00.00 - Encounter for general adult medical examination without abnormal findings Category: Medical Plan: Patient is seen today for a routine physical. As part of this visit we reviewed the following issues, which are considered and essential part of preventative health in this age group: - Annual Assistant Hall Director exam - Blood pressure screening - Osteoporosis prevention including calcium/vitamin D intake, weight bearing exercise & smoking cessation - Nutritional and exercise counseling - Counseling of injury prevention including fire prevention, smoke alarms and seat belt usage - Education about skin cancer - Recommendations about immunizations - Recommendation of an eye exam - Screening for substance abuse (2) Elevated liver enzymes: Code(s): R74.8 - Abnormal levels of other serum enzymes Category: Medical Plan: Patient has a history of alcohol abuse in remission for years. We discussed differential for elevated liver enzymes. She is going to repeat the tests at the end of December. Also check hep a, B and C serology. Advised patient that we can order liver ultrasound with elastography, however she would like to wait on repeat testing prior to making the decision to have imaging done. (3) Thyroid nodule: Code(s): E04.1 - Nontoxic single thyroid nodule Category: Medical Plan: Followed by endocrinology. Continued surveillance. (4) Depression with anxiety: Code(s): F41.8 - Other specified anxiety disorders Category: Medical Plan: Stable. Continue therapy and SSRI. (5) Pure hypercholesterolemia: Code(s): E78.00 - Pure hypercholesterolemia, unspecified Category: Medical Plan: Continue atorvastatin. Recommended low-cholesterol diet. (6) Breast cancer: Code(s): C50.919 - Malignant neoplasm of unspecified site of unspecified female breast Category: Medical Plan: Continue management with surveillance per specialists. Plan Follow up in 6 months. Orders: Orders Hepatitis A IgM 12/17/24 R74.8 - Abnormal levels of other serum enzymes Hepatitis A,B,C Profile 12/17/24 R74.8 - Abnormal levels of other serum enzymes Referrals Dermatology Referral Z12.83 - Encounter for screening for malignant neoplasm of skin
[2024-12-17 16:14] VITALS: BP 100/72; PULSE 73; O2SAT 99; BMI 25.6
--- OUTSIDE RECORDS SUMMARY | 2024-12-17 17:18 | XMS_ITS | Continuity of Care Document ---
Author Organization [facility] Address [address] [place] [address]- Care Team Providers Care Collections Officer Name Role Phone Not on Staff, PCP Primary Care Physician Unavail able Encounter [facility] Date(s): 10/24/24 - 11/23/24 [facility] [address] [place] [id number] Attending Physician: Montez Delaney Admitting Physician: Montez Delaney Referring Physician: Montez Delaney Encounter Type: Triage Allergies, Adverse Reactions, Alerts Substance Criticality Severity Reaction Reaction Severity Status Emend for Injection chest ti ghtness SOB Active Immunizations Given and Recorded Vaccine Date Status Refusal Reason influenza virus vaccine, inactivated 08/30/23 Geoff rded influenza virus vaccine, inactivated 08/21/22 Geoff rded influenza virus vaccine, inactivated 08/20/21 Geoff rded influenza virus vaccine, inactivated 08/09/20 Geoff rded influenza virus vaccine, inactivated 08/10/19 Geoff rded influenza virus vaccine, inactivated 08/11/18 Geoff rded influenza virus vaccine, inactivated 08/13/16 Geoff rded influenza virus vaccine, inactivated 08/18/15 Geoff rded pneumococcal 23-valent vaccine 11/10/22 Given pneumococcal 13-valent vaccine 08/23/22 Given tetanus/diphtheria/pertussis, acel(Tdap) 02/09/22 Recorded SARS-CoV-2 (COVID-19) mRNA-1273 vaccine 09/30/21 R ecorded SARS-CoV-2 (COVID-19) mRNA-1273 vaccine 12/18/20 R ecorded SARS-CoV-2 (COVID-19) mRNA-1273 vaccine 11/20/20 R ecorded Medications acetaminophen 325 mg oral capsule 2 capsule = 650 mg, By Mouth, Every 4 hours, PRN Pain , Moderate, # 90 capsule, 0 Refills, Maintenance, 09/27/23 8:58:00 AM EST, Capsule, [facility]/pharmacy #[id number], Partial fill upon patient request if the prescription is for a schedule II opioid drug., 170.18, cm, 09/27/23 7:45:00 EST, Height, 68.18, kg,09/26/23 11:05:00 EST, Dry Weight Start Date: 09/27/23 Status: Ordered Quantity: 90.0 Unit: capsule Repeat number: 1 anastrozole 1 mg oral tablet 1 tablet, By Mouth, Daily, # 90 tablet, 3 Refills, Maintenance, 02/14/24 3:01:00 PM EDT, [id number], 170, cm, 01/03/24 15:29:00 EST, Height, 68.5, kg, 01/03/24 15:29:00 EST, Dry Weight Start Date: 02/14/24 Status: Ordered Quantity: 90.0 Unit: tablet Repeat number: 1 atorvastatin 20 mg oral tablet See Instructions, TAKE 1 TABLET BY MOUTH DAILY AFTER SUPPER, # 90 tablet, 1 Refills, Maintenance, 07/30/24 2:43:00 PM EDT, [id number], 170, cm, 04/30/24 15:07:00 EDT, Height, 68.6, kg, 04/03/24 14:31:00 EDT, Dry Weight Start Date: 07/30/24 Status: Ordered Quantity: 90.0 Unit: tablet Repeat number: 1 Calcium And Vitamin D Combination By Mouth, Daily, 0 Refills, Maintenance, 09/26/23 10:59:00 AM EST, Partial fill upon patient request if the prescription is for a schedule II opioid drug. Start Date: 09/26/23 Status: Ordered Repeat number: 1 D3 = 2,000 units, By Mouth, Daily, 0 Refills, Maintenance, 05/02/23 1:58:00 PM EDT, Partial fill upon patient request if the prescription is for a schedule II opioid drug. Start Date: 05/02/23 Status: Ordered Repeat number: 1 FLUoxetine 40 mg oral capsule 1 capsule = 40 mg, By Mouth, Daily, # 90 capsule, 0 Refills, Maintenance, 08/14/24 9:39:00 PM EDT, Capsule, [facility]/pharmacy #[id number], Partial fill upon patient request if the prescription is for a schedule II opioid drug., 170, cm, 08/03/24 14:33:00 EDT, Height, 68.3, kg, 08/03/24 14:33:00 EDT, Dry Weight Start Date: 08/14/24 Status: Ordered Quantity: 90.0 Unit: capsule Repeat number: 1 folic acid 1 mg oral tablet 90 tablet, Refills 0, 05/19/22 12:18:00 AM EDT, Partial fill upon patient request if the prescriptionis for a schedule II opioid drug. Start Date: 05/19/22 Status: Ordered Repeat number: 1 ibuprofen 800 mg oral tablet 800 mg, 1, tablet, By Mouth, Every 8 hours, # 90 tablet, Refills 0, Tot. Refills 0, Maintenance, 09/27/23 8:58:00 AM EST, Route to Pharmacy Electronically, [facility]/pharmacy #[id number], Partial fill upon patient request if the prescription is for a schedule II opioid drug., 170.18, cm, 09/27/23 7:45:00 EST, Height, 68.18, kg, 09/26/23 11:05:00 EST, Dry Weight Start Date: 09/27/23 Status: Ordered Quantity: 90.0 Unit: tablet Repeat number: 1 LaMICtal XR 300 mg oral tablet, extended release 2 tablet = 600 mg, By Mouth, Daily, # 60 tablet, 0 Refills, Maintenance, 04/08/22 1:06:00 PM EDT, [facility], Partial fill upon patient request if the prescription is for a schedule II opioid drug. Start Date: 04/08/22 Status: Ordered Quantity: 60.0 Unit: tablet Repeat number: 1 Problem List Condition Confirmation Course Effective Dates Status H ealth Status Informant Acute left-sided back pain with sciatica Confirmed Active Anxiety disorder Confirmed Active Ataxia Confirmed 03/08/22 Active Carcinoma of breast Confirmed 04/22/22 Active History of left breast cancer Confirmed Active Hyperlipidemia Confirmed Active Breast cancer Confirmed Active Anxiety with depression Confirmed Active Multiple thyroid nodules Confirmed Active Knee pain, right Confirmed Active Partial seizure Confirmed 04/29/22 Active Rib pain on left side Confirmed Active Seizure disorder Confirmed Active Transient cerebral ischemia Confirmed 03/30/22 Active Social History Social History Type Response Smoking Status Never (less than 100 in lifetime) entered on: 04/08/22 Sex Sex Representation Female (finding) Patient Care team information Care Team Personnel Name: Purvi Ross RN Position: [facility] Onco RN Member Role: Primary Care Nurse Name: Pat Baltazar RN Position: [facility] Onco RN Member Role: Primary Care Nurse Name: Gilda Bruno RN Position: [facility] Onco RN Member Role: Primary Care Nurse Name: Not on Staff, PCP Position: [facility] Physician (General Medicine) Member Role: PCP Name: Abdirahman Vargas RN Position: [facility] Onco RN Member Role: Primary Care Nurse Name: Savi Abraham RN Position: [facility] Onco RN Member Role: Primary Care Nurse Care Team Related Persons Name: KADIE ESTES Name: SILVER CANTU Insurance Providers Guarantor name: MANUELA ALONDRA Health Plan Information #: [address]: [facility] Member Number: NA Policy Number: NA Group Number: NA
--- OUTSIDE RECORDS SUMMARY | 2024-12-17 17:18 | XMS_ITS | Clinical Summary ---
Author Organization [facility], Address [address] [place] [address] Phone Care Team Providers Care Manager Mobile Name Role Phone Jenn De La Cruz MD Primary Care Provider [phone] Allergies No known active allergies Medications escitalopram (LEXAPRO) 10 MG tablet Take 10 mg by mouth 1 (one) time each day Active FOLIC ACID PO Take by mouth Active lamoTRIgine ER 300 MG tablet sustained-releas e 24 hour Take by mouth Take 2 tablets- 600mg Active Active Problems Problem Noted Date Diagnosed Date Focal onset epileptic seizure 04/29/2022 Overview (04/29/2022): Partial focal seizure diagnosed during ; on medications and stable Carcinoma of breast 04/22/2022 Overview (04/22/2022): Left breast Anxiety 04/22/2022 Transient cerebral ischemia 03/30/2022 Ataxia 03/08/2022 Overview (04/30/2022): Last Assessment & Plan: Current NIHSS score is 0 with only finding on exam minimal horizontal nystagmus. Per the ER clinician, she did have difficulty with tandem gait. No other focal cerebellar signs. She is afebrile and hemodynamically stable here, with unclear etiology of fever at home. No recent upper respiratory congestion or illness. SARS-CoV-2 RNA testing negative. No tinnitus. Differential diagnosis includes CVA, seizure, migrainous phenomenon, and peripheral vertigo (i.e. secondary to process such as BPPV, M??ni??re's, or vestibular neuritis). CT of the head without hemorrhage or acute pathology and CT angiogram without large vessel stenosis or retrievable thrombus. 1. Observation on the medical floor, continuous EKG monitoring, neurochecks every 4 hours 2. MRI of the brain to evaluate for acute ischemia 3. Further stroke workup such as echocardiogram pending MRI results 4. EEG to rule out ongoing epileptiform activity; continue lamotrigine for now 5. Check ESR/CRP, TSH, and hemoglobin A1c 6. Continue aspirin 81 mg daily 7. Check lipid panel and consider starting statin based on workup 8. Teleneurology input appreciated, will follow up after above studies are resulted 9 PT/OT evaluations 10. The patient has passed a bedside swallow evaluation and will be allowed to have a cardiac prudent diet Social History Tobacco Use Types Packs/Day Years Used Date Smoking Tobacco: Never Smokeless Tobacco: Never Alcohol Use Standard Drinks/Week Comments Yes 0 (1 standard drink = 0.6 oz pur e alcohol) occas Comments Unknown Sex and Gender Information Value Date Recorded Sex Assigned at Not on file Legal Sex Female 11:11 AM EDT Gender Identity Not on file Sexual Orientation Not on file Last Filed Vital Signs Vital Sign Reading Time Taken Comments Blood Pressure 106/71 04/30/2022 9:50 AM EDT Pulse 89 04/30/2022 9:50 AM EDT Temperature 36.2 ??C (97.1 ??F) 04/30/2022 9:50 AM ED T Respiratory Rate 16 04/30/2022 9:50 AM EDT Oxygen Saturation 98% 04/30/2022 9:50 AM EDT Inhaled Oxygen Concentration - - Weight 65.8 kg (145 lb) 04/30/2022 9:50 AM EDT Height 170.2 cm (5' 7 ) 04/30/2022 9:50 AM EDT Body Mass Index 22.71 04/30/2022 9:50 AM EDT Plan of Treatment Health Maintenance Due Date Last Done Comments Pneumococcal Vaccine: Pediat rics (0 to 5 Years) and At-Risk Patients (6 to 64 Years) (1 of 2 - PCV) 1986 Hepatitis B Vaccine (1 of 3 - 19+ 3-dose series) 12/26 Influenza Vaccine (#1) 2024 Insurance [facility] Care Teams Manager Mobile Relationship Specialty Start Date End Date Jnen De La Cruz MD [address] [place] [id number] PCP - General Internal Medicine 04/28/22
== END 2024-12-17 17:07 | disposition home or self-care (01) ==
PROVIDERS: PCP Physician Assistant Medical; Visit Provider Physician Assistant Medical
DX: Z00.00 Encounter for general adult medical examination without abnormal findings (principal); C50.919 Malignant neoplasm of unspecified site of unspecified female breast; R74.8 Abnormal levels of other serum enzymes; E04.1 Nontoxic single thyroid nodule; F41.8 Other specified anxiety disorders; E78.00 Pure hypercholesterolemia, unspecified

== ENCOUNTER → 2024-12-17 16:04 | Outpatient (BNVA) | payer OTHER, SELFPAY | PROVIDERS: PCP Physician Assistant Medical; Visit Provider Physician Assistant Medical ==

== ENCOUNTER 2024-12-28 13:10 | Outpatient (REF) | payer OTHER, SELFPAY ==
[2024-12-28 14:58] LABS: Alanine Aminotransferase 39 U/L (0-31); Albumin Level 4.4 g/dL (3.5-5.0); Alkaline Phosphatase 96 U/L (39-117); Aspartate Amino Transferase 37 U/L (5-31); Bilirubin Direct 0.2 mg/dL (0.0-0.5); Bilirubin Total 0.5 mg/dL (0.0-1.0); Total Protein 7.5 g/dL (6.5-8.0)
[2024-12-29 03:49] LABS: HBS Num1 2.81 mIU/mL (0-7.99); HBc Num1 0.09 S/CO (0.00-0.79); HBsAGNum1 0.31 S/CO (0.00-0.99); Hepatitis A Antibody IgM 0.17 Index (0-0.79); Hepatitis B Core Antibody Nonreactive (Nonreactive); Hepatitis B Surface Antigen Negative (Negative); ~HepC Num1 0.07 S/CO (0.00-0.79); ~Hepatitis A Antibody IgM Nonreactive (Nonreactive); ~Hepatitis B Surface Antibody NONREACTIVE (Nonreactive); ~Hepatitis C Antibody Nonreactive (Nonreactive)
[2024-12-29 03:53] LABS: Hepatitis A Antibody IgM 0.15 Index (0-0.79); ~Hepatitis A Antibody IgM Nonreactive (Nonreactive)
== END 2024-12-28 13:11 | disposition home or self-care (01) ==
LOC: HO.LAB 13:10
PROVIDERS: PCP Physician Assistant Medical; Visit Provider Physician Assistant Medical
DX: R74.8 Abnormal levels of other serum enzymes (principal)
CPT/HCPCS: 36415; 80076; 86704; 86706; 86709; 86803; 87340

== ENCOUNTER 2025-01-31 08:01 | Outpatient (REF) | payer OTHER, SELFPAY ==
--- NOTE | ~2025-01-31 | US_ITS ---
EXAMINATION: US ABDOMEN LIMITED WITH LIVER ELASTOGRAPHY HISTORY: R74.8 - Abnormal levels of other serum enzymes TECHNIQUE: Real-time grayscale ultrasound imaging of the right upper quadrant was performed and images were reviewed. COMPARISON: There are no prior studies for comparison. FINDINGS: Liver: The right lobe of the liver measures 17.1 cm in size. The left lobe of the liver measures 12.1 cm in size. The liver demonstrates normal homogeneous echotexture. No focal mass or intrahepatic biliary ductal dilatation is identified. There is normal hepatopedal flow in the portal vein. Ultrasound elastography of the liver was performed with 10 separate measurements of the liver parenchyma with the patient in the supine position. Measurements were obtained approximately 2 cm below Irene's capsule and perpendicular to the capsule. Images are of satisfactory quality. The median shear wave velocity is 0.94 m/s. The interquartile range/median (IQR/median) is 0.29. Gallbladder and biliary tree: There are multiple shadowing calculi in the gallbladder. Additional polyps versus adherent calculi are noted along the gallbladder wall. There is no wall thickening or pericholecystic fluid. There is no sonographic Polanco sign. The common bile duct is normal in caliber measuring 2 mm. Right Kidney: The right kidney measures 12.3 cm in length. The right kidney is unremarkable, without evidence of masses, hydronephrosis, or calculi. Pancreas: The pancreatic head, neck, and body are unremarkable. The pancreatic tail is obscured by bowel gas. Abdominal aorta and inferior vena cava: The visualized portions of the abdominal aorta and inferior vena cava are normal in caliber. There is no free fluid in the right upper quadrant. US/US abdomen lewis w elastography IMPRESSION: Borderline hepatomegaly. Cholelithiasis and possible gallbladder polyps. The median shear wave velocity in the liver is 0.94 m/s, corresponding to a median liver stiffness of 2.7 kPa. The IQR/median value is 0.29. This is indicative of a poor quality data set, and the estimated liver stiffness may be unreliable. Findings are indicative of a normal elastography value with a low likelihood of severe fibrosis or cirrhosis. REFERENCE: Society of Radiologists in Ultrasound Liver Stiffness Thresholds (2020): LIVER STIFFNESS THRESHOLDS: *Shear wave velocity less than 1.3 m/s (Liver Stiffness equal or less than 5 kPa): High probability of being normal. *Shear wave velocity less than 1.7 m/s (Liver Stiffness less than 9 kPa): In the absence of other known clinical signs, rules out compensated advanced chronic liver disease. *Shear wave velocity between 1.7-2.1 m/s (Liver Stiffness 9-13 kPa): Suggestive of compensated advanced chronic liver disease but need further test for confirmation. *Shear wave velocity between 2.1-2.4 m/s (Liver Stiffness 13-17 kPa): Rules in compensated advanced chronic liver disease. *Shear wave velocity greater than 2.4 m/s (Liver Stiffness over 17 kPa): Suggestive of clinically significant portal hypertension. QUALITY OF DATA SET: *IQR/Median value equal or less than 0.15 implies a quality data set. *IQR/Median value over 0.15 implies a poor quality data set. SIGNIFICANT CHANGE FROM PRIOR EXAM: Significant change if liver stiffness measurement is 10% or greater from prior exam. OTHER CONSIDERATIONS: The stage of liver fibrosis may be overestimated in the setting of acute hepatitis, liver inflammation, elevated liver function tests, hepatic vascular congestion, obstructive cholestasis, non-fasting state, and infiltrative diseases such as amyloidosis and lymphoma. In some patients with NAFLD, the liver stiffness thresholds for compensated advanced chronic liver disease may be lower. In causes other than viral hepatitis and NAFLD, liver stiffness thresholds are not well established. Electronically signed by: Dipesh Soliman MD 01/31/2025 09:23 AM EDT
--- OUTSIDE RECORDS SUMMARY | 2025-01-31 08:05 | XMS_ITS | Data Portability ---
Author Organization [place] - [facility] Address [address] [place] [address] Care Team Providers Care Integrated Marketing Intern Name Role Phone SHAHIDA JONES Primary Care Provider [phone] Assessment Encounter Date Assessment Date Assessment LastModified [...] :T is a 39-year-old female that [facility] because she has been having body aches [...] she plans to go on vacation to [place] and will need a test prior to this trip so she may consider contacting [facility] again for that. If symptoms linger or get worse should follow up with PCP. In order to obtain further information and compare any laboratory results/values, I have accessed old patient records. This information was pertinent in my medical decision making today. Time On Scene with Patient: 00:39:19 [email or web address] Not available 06/02/2020 16:46:38 Plan of Treatment Reminders Order Date Submit Date Provider Last Modified By Organization Details Last Modified Time Details Appointments None recorded. Lab creatinin e, blood 2019 tom [facility], [address] [place], [address], 0 14:58:34 6+ iStat 2019 020 tom 31 [facility] - Home, [address] [place], [address], 0 14:58:33 rapid flu (A+B) 2019 claribel [facility] - Home, [address] [place], [address], 0 14:15:10 Referral None recorded. Procedures None recorded. Surgeries None recorded. Imaging None recorded. Medication Orders Tessalon Perles 100 mg capsule 2019 020 INTERFACE [id number], [address] [place], [address], 0 14:15:15 Patient TargetsNo targets recorded. Patient Instructions Encounter Date Encounter Id Patient Instructions Last Modified By Organization Details Last Modified Time 01/07/2020 [id number] Influenza Discha rge Instructions Basic Information Influenza [...] in your condition between 8am-10pm, [facility] at [phone] to help navigate your care. [email or web address] Not available 01/07/2020 14:17:07 Reason for Referral None Reported. Results Created Date Observation Date Name Description Value Unit Range Abnormal Flag Note LastModifiedBy Organization Detail LastModifiedTime 06/02/2006/02/2020 6+ iStat Na 140 mmol/ L 138-14 6 Not Available [facility] [address] [place], [address], 06/02/2020 14:51:51 06/02/2006/02/2020 6+ iStat K 3.7 mmol/ L 3.5-4. 9 Not Available [facility] [address] [place], [address], 06/02/2020 14:51:51 06/02/20 20 06/02/2020 6+ iStat cL 105 mmol/ L 98-109 Not Available [facility] [address] [place], [address], 06/02/2020 14:51:51 06/02/2006/02/2020 6+ iStat BUN 11 mg/dL 8-26 Not Available [facility] [address] [place], [address], 06/02/2020 14:51:51 06/02/2006/02/2020 6+ iStat glu 121 mg/dL 70-105 Not Available [facility] [address] [place], [address], 06/02/2020 14:51:51 06/02/2006/02/2020 6+ iStat HCT 36 %_pcv 37-47 Not Available [facility] [address] [place], [address], 06/02/2020 14:51:51 06/02/2006/02/2020 6+ iStat Hb 12.2 g/dL 12-17 Not Available [facility] [address] [place], [address], 06/02/2020 14:51:51 06/02/20 20 06/02/2020 creat inine , blood crea 0.7 mg/dL 0.6-1. 3 Not Available [facility] [address] [place], [address], 06/02/2020 14:51:45 01/07/20 20 01/07/2020 rapid flu (A+B) Flu A positi ve Not Available [facility] [address] [place], [address], 01/07/2020 13:58:48 01/07/20 20 01/07/2020 rapid flu (A+B) Flu B negati ve Not Available [facility] [address] [place], [address], 01/07/2020 13:58:48 01/07/20 20 01/07/2020 rapid flu (A+B) Control Visual ized / Valid Not Available [facility] [address] [place], [address], 01/07/2020 13:58:48 Result Notes None recorded. Procedures Surgical History Date Name Laterality Status Provider Name and Address Organization Details Recorded Time 06/02/20 Venipuncture - completed JEREMY ESCOBEDO NP [address] [place], [address], [place] [facility] 06/02/2020 16:41:52 Imaging Results None recorded. Procedure [...] /min 120 mm[Hg] 76 mm[Hg] Not Available [facility] 0 14:06:05 Date Recorded Respiratory rate Heart rate Body temperature Oxygen saturation Oxygen saturation in Arterial blood by Pulse oximetry Systolic blood pressure Diastolic blood pressure Provider Name and Address Organization Details Last Updated DateTime 0 14 /min 80 /min 97.1 [degF] 98 % 98 % 130 mm[Hg] 80 mm[Hg] Not Available [facility] 0 14:40:42 Social History Question Answer Notes LastModified by Organizat ion Details LastModified Time Tobacco Smoking Status Never Smoker PIERCE MARISCAL [address] [place] [address], [address], [place] [facility] 01/07/2020 14:25:48 Excessive Alcohol [...] available 01/07 14:00:45 Medical History Condition Response Coronary Artery Disease N Depression N COPD N Cancer N Stroke N High Cholesterol Y Kidney Disease N Diabetes N Asthma N Pulmonary Embolism N Hypertension N Gynecological HistoryNo gynecological history recorded. Obstetrics History GPAL:G 0 P 0 0 0 0 Past Encounters Encounter ID Performer Location Encounter Start Date Encounter Closed Date Diagnosis/Indication Diagnosis SNOMED-CT Code Diagnosis ICD10 Code Diagnosis Note [id number] [facility]ER[facility] MARISCAL [facility] [address] [facility] [place] [address] 01/07/2020 13:55:47 01/08/2020 10:18:20 Influenza-like illness 22206561 B34.9 Dry cough 57242873 R05 Influenza caused by Influenza A virus 067903417 J09.X2 [id number] JEREMY ESCOBEDO NP [facility] [address] [place] [address] 06/02/2020 14:27:53 06/02/2020 16:56:16 Malaise and fatigue 466547731 R53.81 Health Concerns Section Related Observation LastModified by Organization Detai ls LastModified Time None Recorded Concern Status LastModified by Organization Details LastModified Time None Recorded Advance Directives Directive None Recorded Payers Encounter Date Sequence Insurance Name Policy Number Policy Lawson Covered Member ID Lawson Member ID Guarantor Name 01/07/[address] [facility] Jenn Moralez [id number] Jenn Moralez 06/02/[address] [facility] [id number] Jenn Moralez [id number] Jenn Moralez Notes Date Note Type [...] symptoms with good results PIERCE MARISCAL [address] [place], [address], [place] [facility] 01/07/2020 15:38:54 06/02/2020 text/html This is a 39-year-old female that is known to [facility] but new to this provider. She has a medical history significant for hyperlipidemia and epilepsy. She was seen by [facility] back in December for flu like symptoms. [...] and having body aches. JEREMY ESCOBEDO NP [address], [place], [address], [place] [facility] 06/02/2020 16:46:44 OBGyn Episode No OBEpisode recorded.
--- OUTSIDE RECORDS SUMMARY | 2025-01-31 08:05 | XMS_ITS | Patient Health Record ---
Author Organization [facility] Address [address] [place] [address] Care Team Providers Care Supervisor Painting Name Role Phone KIN () INDERJITVARGAS Primary Care Provider U BLANCA Shields Unavailable [phone] Allergies No Known Allergies Reason For Referral No Information Medications Medication SIG (Take, Route, Frequency, Duration) Notes Start Date End Date Status Folic Acid 1 MG 1 tablet Orally Once a day Active Multivitamin Active lamoTRIgine ER 300 MG (Prior Auth#:[id number]) Oral for 90 Active Atorvastatin Calcium 20 MG TAKE 1 TABLET BY MOUTH DAILY AFTER SUPPER Oral for 90 Days Active miSOPROStol 200 MCG as directed Orally 8-12 hrs prior to appointment for 1 days 02/06/2024 Active Fluoxetine 30mg Active Arimidex 1 MG 1 tablet Orally Once a day for 30 day(s) Active Lupron 3.75 monthly Active Social History Tobacco Use: Social History Observation Description Date Details (start date - stop date) Never Smoker NA - NA Tobacco Use/Smoking Question Answer Notes Are you a nonsmoker Alcohol Screen (Audit-C) Question Answer Notes Did you have a drink containing alcohol in the p ast year? No Points 0 Interpretation Negative Tobacco use other than smoking: Question Answer Notes Are you an other tobacco user? No Problems Problem Type SNOMED Code ICD Code Onset Dates Problem Status W/U Status Risk Notes Problem Excessive and frequent menstruation (574546193) Excessive and frequent menstruation with regular cycle (N92.0) Active confirmed Problem Postmenopausal bleeding (43143583) Postmenopausal bleeding (N95.0) Active confirmed Problem Malignant neoplasm of lower-inner quadrant of female breast (117627744) Malignant neoplasm of lower-inner quadrant of left female breast (C50.312) Active confirmed Problem Anxiety disorder (710246230) Anxiety disorder, unspecified (F41.9) Active confirmed Problem Hypoactive sexual desire disorder (103807435) 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) Active confirmed Problem Epilepsy (17628831) Epilepsy, unspecified, not intractable, without status epilepticus (G40.909) Active confirmed Problem Irregular Menstruation (45106650) Other specified irregular menstruation (N92.5) Active confirmed Problem Abnormal uterine bleeding (56521463417149) Abnormal uterine and vaginal bleeding, unspecified (N93.9) Active confirmed Problem COVID-19 (306862472) COVID-19 (U07.1) Active confirmed Vital Signs Temperature 97.9 degrees Fahrenheit 02/06/2024 Blood pressure diastolic 72 mm Hg 02/06/2024 Height 67 in 02/06/2024 Blood pressure systolic 100 mm Hg 02/06/2024 Weight 148 lbs 02/06/2024 BMI 23.18 kg/m2 02/06/2024 Encounters Encounter Location Date Provider Diagnosis [address] [address] 02/06/2024 BLANCA PRITCHARD Encounter for gynecological examination (general) (routine) without abnormal findings Z01.419 ; Encounter for screening mammogram for malignant neoplasm of breast Z12.31 and Abnormal uterine and vaginal bleeding, unspecified N93.[address] [address] 02/24/2024 BLANCA PRITCHARD Postmenopausal bleed ing N95.[address] [address] 02/21/2024 BLANCA PRITCHARD Abnormal uterine and vaginal bleeding, unspecified N93.9 Assessments Encounter Date Diagnosis (ICD Code) Assessment Notes Treatment Notes Treatment Clinical Notes Section Notes 02/06/2024 Encounter for gynecological examination (general) (routine) without abnormal findings (ICD-10 - Z01.419) Discussed cervical cancer screening with either cytology alone every 3 years or high risk HPV co-testing every 5 years as per ASCCP guidelines. Advised continued annual pelvic exams. Patient encouraged to increase her level of exercise. SBE technique encouraged/tau ght. Patient reminded when annual mammogram is due. 02/06/2024 Encounter for screening mammogram for malignant neoplasm of breast (ICD-10 - Z12.31) 02/21/2024 Abnormal uterine and vaginal bleeding, unspecified (ICD-10 - N93.9) 02/24/2024 Postmenopausal bleeding (ICD-10 - N95.0) 02/06/2024 Abnormal uterine and vaginal bleeding, unspecified (ICD-10 - N93.9) Plan Of Treatment Pending Test Test Name Order Date Sonohysterogram 02/06/2024 Urinalysis 12/14/2019 COMPLETE BLOOD COUNT 04/14/2021 FREE TESTOSTERONE 12/06/2018 TESTOSTERONE 12/06/2018 THIN PREP,HPV,JANEEN IF HPV+ (>29YR)(SCRN) 11/29/2017 MM Digital Screening Mammogram 3D 2021 MM Digital Screening Mammogram 3D 2022 MM Digital Screening Mammogram 3D 2023 Next Appt Details Provider Name:BLANCA Ackerman, 02/11/2025 08:00:00 AM, [address] [place] [address], [address], [place], [address], Insurance Providers Payer Name Payer Address Payer Phone Subscriber Number Group Number Insured Name Patient Relationship to Insured Coverage Start Date Coverage End Date [facility] [employer] [address] [place], [place] [id number] MANUELA BARTON Self - patient is the insured Medical (General) History Medical History History ICD Code Epilepsy, unspecified, not intractable, without status epilepticus G40.909 Anxiety disorder, unspecified F41.9 Hypoactive sexual desire disorder F52.0 Decreased libido R68.82 Malignant neoplasm of lower-inner quadra nt of left female breast C50.312 COVID-19 U07.1 Surgical History Surgery Date(Month/Year) Sclero therapy (spider viens) 11/2018 left breast biopsy - grade 1 invasive ductal carcinoma, +axillary mets 03/2022 left breast lumpectomy/senti jesse node - grade 1 invasive ductal carcinoma, +axillary mets; ER/HI+, Her2/mateus negative 10/2022 all lymphnodes removed (23 ) bypass 01/03 23 Bilateral salpingo-oophorectomy 09/2023 Hospitalization History Reason Date(Month/Year) childbirth as a child - 3 episodes of m igraines that caused her to temporarily lose sight, and lose consciousness
--- OUTSIDE RECORDS SUMMARY | 2025-01-31 08:05 | XMS_ITS | Continuity of Care Document ---
Author Organization [facility] Address [address] [place] [address]- Care Team Providers Care Health Center Assistant Name Role Phone Polina Ventura Primary Care Physician [phone] En[place] [facility] Date(s): 12/13/24 - 01/12/25 [facility] [address] [place] [address] Encounter Type: Triage Allergies, Adverse Reactions, Alerts [...] Refills, Maintenance, 09/27/23 8:58:00 AM EST, Capsule, [id number], Partial fill upon patient request if the prescription is for a schedule II opioid drug., 170.18, cm, 09/27/23 7:45:00 EST, Height, 68.18, kg,09/26/23 11:05:00 EST, Dry Weight Start Date: 09/27/23 Status: Ordered Quantity: 90.0 Unit: capsule Repeat number: 1 anastrozole 1 mg oral tablet 1 tablet, By Mouth, Daily, # 90 tablet, 3 Refills, Maintenance, 02/14/24 3:01:00 PM EDT, [facility], 170, cm, 01/03/24 15:29:00 EST, Height, 68.5, kg, 01/03/24 15:29:00 EST, Dry Weight Start Date: 02/14/24 Status: Ordered Quantity: 90.0 Unit: tablet Repeat number: 1 atorvastatin 20 mg oral tablet See Instructions, TAKE 1 TABLET BY MOUTH DAILY AFTER SUPPER, # 90 tablet, 1 Refills, Maintenance, 07/30/24 2:43:00 PM EDT, [facility], 170, cm, 04/30/24 15:07:00 EDT, Height, 68.6, [...] Refills, Maintenance, 08/14/24 9:39:00 PM EDT, Capsule, [id number], Partial fill upon patient request if [...] 8:58:00 AM EST, Route to Pharmacy Electronically, [id number], Partial fill upon patient request if [...] Team Personnel Name: Purvi Ross RN Position: [facility] Onco RN Member Role: Primary Care Nurse Name: Polina Ventura Position: Reference Physician Member Role: PCP Address: [address] [place] [address] Telecom: Name: Pat Baltazar RN Position: S Onco RN Member Role: Primary Care Nurse Name: Gilda Bruno RN Position: S Onco RN Member Role: Primary Care Nurse Name: Abdirahman Vargas RN Position: S Onco RN Member Role: Primary Care Nurse Name: Savi Abraham RN Position: S Onco RN Member Role: Primary Care Nurse Care Team Related Persons Name: KADEI ESTES Name: SILVER CANTU Insurance Providers Guarantor name: MANUELA CANTU [facility] Information #: 1 Payer: [facility] Member Number: NA Policy Number: NA Group Number: NA
--- OUTSIDE RECORDS SUMMARY | 2025-01-31 08:05 | XMS_ITS ---
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 Physical Medications Medication SIG (Take, Route, Frequency, Duration) Notes Start Date End Date Status Multivitamin Active Folic Acid 1 MG 1 tablet Orally Once a day Active Atorvastatin Calcium 20 MG TAKE 1 TABLET BY MOUTH DAILY AFTER SUPPER Oral for 90 Days Active lamoTRIgine ER 300 MG (Prior Auth#:[id number]) Oral for 90 Active miSOPROStol 200 MCG as directed Orally 8-12 hrs prior to appointment for 1 days 02/06/2024 Active Fluoxetine 30mg Active Lupron 3.75 monthly Active Arimidex 1 MG 1 tablet Orally Once a day for 30 day(s) Active Social History Tobacco Use: Social History [...] Problem Status W/U Status Risk Notes Problem Abnormal uterine bleeding ([id number]) Abnormal uterine and vaginal bleeding, unspecified (N93.9) Active confirmed Vital Signs Temperature 97.9 degrees Fahrenheit 02/06/20 24 Blood pressure systolic 100 mm Hg 02/06/20 24 Blood pressure diastolic 72 mm Hg 024 Height 67 in 02/06/2024 Weight 148 lbs 02/06/2024 BMI 23.18 kg/m2 02/06/2024 Encounters Encounter Location Date Provider Diagnosis [facility] [address] [place] [address] 02/06/2024 BLANCATiffanie PRITCHARD Encounter for gynecological examination (general) (routine) [...] malignant neoplasm of breast (ICD-10 - Z12.31) 02/06/2024 Abnormal uterine and vaginal bleeding, unspecified (ICD-10 - N93.9) Plan Of Treatment Medication Medication Name Sig Start Date Stop Date Notes miSOPROStol 200 MCG as directed Orally 8 -12 hrs prior to appointment for 1 days 02/06/2024 Treatment Notes Assessment Notes Encounter for gynecological examination (general) (routine) without abnormal findings Discussed cervical cancer screening with either cytology alone every 3 years or high risk HPV co-testing every 5 years as per ASCCP guidelines. Advised continued annual pelvic exams. Patient encouraged to increase her level of exercise. SBE technique encouraged/taught. Patient reminded when annual mammogram is due. Pending Test Test Name Order Date Sonohysterogram 02/06/2024 MM Digital Screening Mammogram 3D 2023 Next Appt Details Follow Up: 1 Year, Reason: Y early Brand Strategist Exam Provider Name:BLANCATiffanie Ackerman, 02/11/2025 08:00:00 AM, [address], [address], [place], [address], Progress Notes * STEVE CANTU:1980 ([age] yo F)Acc No.[id number]:02/06/2024 PROGRESS NOTES Patient:JENN MOCK Provider:?BLANCA PRITCHARD MD :1980???Age:43 Y???Sex:Female D ate:02/06/2024 Address:[address] [place], [place] [id number] Pcp:AKIRA SANDERSON Subjective: * Chief Complaints: * ???Annual SILVERWARE WASHER Physical * HPI: ???Constitutional:? 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 ? She has been in state of good health since her last exam. She had a BSO this year. She has the following concerns: she reports one episode of brownish vaginal discharge during exercise a few weeks ago. ? She has received the Moderna Covid-19 vaccine. ? Relationship status: for 15 years. Her was recently diagnosed with Stage 4 Prostate Cancer and Li-Fraumeni syndrome. Her daughter does not have the mutation. She is not sexually active. Sexual partner(s): male. She does not wish to have STI testing. ? She does not report vaginal dryness. She does have hot flashes/night sweats - tolerable. ? The patient has never had an abnormal pap smear. Her most recent pap smear was 02/03/23 - NIL, neg HR HPV. Next due for cotesting in 2027. ? She has been diagnosed with breast cancer in the left breast and axillary node. She does not have a family history of breast cancer. Her last mammogram was 09/21/23. She also had a breast MRI on 10/18/23, as ordered by her doctor at the [facility]. ? The patient does exercise. She exercises x 5 days/week by walking/jogging on the treadmill (interval training). * ROS:?Annual Brand Strategist Exam ROS:?Bowel habit changes?denies.?Bladder symptoms?denies.?Vaginal discharge, unusual?admits,?one episode of dark brown discharge during exercise.?Vaginal itch or odor?denies.?abnormal bleeding?denies.?weight or appetite changes?denies.?Chest pains, SOB?denies.?depression? admits,?on Prozac, denies SI/HI.?Breast:?Denies?Breast lump.?Denies?Nipple discharge.?Gastrointestinal:?Denies?Blood in stool.?Hematology:?Denies?Swollen glands.?Genitourinary:?Denies?Blood in urine.?Skin:?Patient denies?changing moles.?Psychiatric:?Admits?Anxiety,?Sees a therapist.? * Medical History:? * Brand Strategist History:?/ Para?11/14.?Sexual activity?currently sexually active, with men.?Last Pap Smear:?11/29/17 NIL, NEG HRHPV.?Mammogram:?09/21/23 50-75% density, 03/12/2022 50-75% density, 03/02/2021 , 50- 75% density.?Abnormal Pap Smear:?none.?LMP and menses?Vale.?History of STD's:?none.? Control:?vasectomy.?Gardasil:?has not had vaccine.?SILVERWARE WASHER HISTORY MISC.?BRCA negative.? * OB History:?Total pregnancies?.? # 1:?normal spontaneous vaginal delivery (), 10/13/2009, Reny, 9lb 10oz, partial focal seizures.? * Surgical History:?Sclero the rapy (spider viens) 11/2018left breast biopsy - grade 1 invasive ductal carcinoma, +axillary mets 03/2022left breast lumpectomy/sentinel node - grade 1 invasive ductal carcinoma, +axillary mets; ER/SD+, Her2/mateus negative ll lymphnodes removed (23 ) bypass ilateral salpingo-oophorectomy 09/2023 * Hospitalization/Major Diagno stic Procedure:?as a child - 3 episodes of migraines that caused her to temporarily lose sight, and lose consciousness childbirth * Family History:?Mother: dieter fiore 70 yrs, hypothyroid.?Father: alive 72 yrs, high cholesterol, prostate cancer.?Maternal Grand Father: , Colon cancer in his late 80's.?Spouse: alive 49 yrs, Stage 4 Prostate Cancer and Li-Fraumeni syndrome {Li-Fraumeni syndrome is an inherited autosomal dominant disorder that is manifested by a wide range of malignancies that appear at an unusually early age [1,2]. Li-Fraumeni syndrome is also known as the Sarcoma, Breast, Leukemia, and Adrenal Gland (SBLA) cancer syndrome and as heritable tumor protein p53 gene (TP53)- related cancer syndrome [3]. }.? Brother - Jad - 1976 - obese, high cholesterol, high triglycerides Sister - June - 1982 - well (twins) Sister - Arina - 1982 - well (twins). * Social History:?Tobacco Use:?Tobacco Use/Smoking?Are you a?nonsmoker ?Tobacco use other than smoking?Are you an other tobacco user??No ???Sexual History:?Details of Sexual History?Are you sexually active??Yes ???Drugs/Alcohol:?Drugs?Have you used drugs other than those for medical reasons in the past 12 months??Yes ?Marijuana??Yes Rare gummy ?Alcohol Screen (Audit-C)?Did you have a drink containing alcohol in the past year??No ?Points?0 ?Interpretation?Negative ???Miscellaneous:?Children: yes. ?no Domestic violence. ?Exercise: yes, 4-5 tmes wekly. ?Home smoke detector use: yes, smoke detectors, carbon monoxide detector. ?Housing: owns a home. ?Living with: spouse, daughter. ?Marital status: , Christopher. ?Natural support system: yes. 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 ?Pets: none. ?no Sexual abuse. ?Sexually active: yes, monogamous relationship. ?no Verbal abuse. * Medications:?TakingFluoxetin e , Notes: 30mgArimidex 1 MG Tablet 1 tablet Orally Once a dayLupron , Notes: 3.75 monthlyFolic Acid 1 MG Tablet 1 tablet Orally Once a dayMultivitamin lamoTRIgine ER 300 MG Tablet Extended Release 24 Hour (Prior Auth#:[id number]) Oral Atorvastatin Calcium 20 MG Tablet TAKE 1 TABLET BY MOUTH DAILY AFTER SUPPER Oral Taking Fluoxetine , Notes: 30mgTaking Arimidex 1 MG Tablet 1 tablet Orally Once a dayTaking Lupron , Notes: 3.75 monthlyTaking Folic Acid 1 MG Tablet 1 tablet Orally Once a dayTaking Multivitamin Taking lamoTRIgine ER 300 MG Tablet Extended Release 24 Hour (Prior Auth#:[id number]) Oral Taking Atorvastatin Calcium 20 MG Tablet TAKE 1 TABLET BY MOUTH DAILY AFTER SUPPER Oral DiscontinuedEscitalopram Oxalate 10 MG Tablet (Prior Auth#:[id number]) Oral Iron 325 (65 Fe) MG Tablet 1 tablet Orally Once a dayVyleesi 1.75 MG/0.3ML Solution Auto-injector (Prior Auth#:[id number]) Subcutaneous Medication List reviewed and reconciled with the patientDiscontinued Escitalopram Oxalate 10 MG Tablet (Prior Auth#:[id number]) Oral Discontinued Iron 325 (65 Fe) MG Tablet 1 tablet Orally Once a dayDiscontinued Vyleesi 1.75 MG/0.3ML Solution Auto-injector (Prior Auth#:[id number]) Subcutaneous Medication List reviewed and reconciled with the patient * Allergies:?N.K.D.A.no[Allerg ies Verified] Objective: * Vitals:?Ht: 67 in, Wt:148 lb s, BMI:23.18 Index, BP:100/72 mm Hg, Temp:97.9 F. * Examination: ???General Examination: ?GENERAL APPEARANCE:?in no acute distress, well developed, well nourished, polisher and buffer present in room.?HEAD:?normocephalic, atraumatic.?NECK/THYROID:?neck supple, full range of motion, thyroid normal.?LYMPH NODES:?no axillary or supraclavicular adenopathy.?SKIN:? normal, good turgor, no rashes, no suspicious lesions.?BREASTS:?normal, no dimpling, no discharge, no drainage, no masses palpable bilaterally, nontender, left breast with surgical scar in lower midline.?ABDOMEN:? soft, non-tender, non distended without masses or hepatosplenomegay.?RECTAL:? normal tone, no masses palpable.?BACK:? no costovertebral angle tenderness.?FEMALE GENITOURINARY:?Vulva without lesions or masses, vagina pink without abnormal discharge, lesions or masses, cervix appears normal and is not tender to palpation, uterus is normal size, mobile, nontender and anteverted, ovaries are surgically absent.?NEUROLOGIC:? alert and oriented, gait normal.?PSYCH:? alert, oriented, cognitive function intact, cooperative with exam, good eye contact, mood/affect full range, speech clear.? Assessment: * Assessment: 1.?Encounter for gynecologic al examination (general) (routine) without abnormal findings - Z01.419 (Primary)?2.?Encounter for screening mammogram for malignant neoplasm of breast - Z12.31?3.?Abnormal uterine and vaginal bleeding, unspecified - N93.9? Plan: * Treatment: 2.?Encounter for screening m ammogram for malignant neoplasm of breast?Imaging: MM Digital Screening Mammogram 3D 3.?Abnormal uterine and vagi nal bleeding, unspecified? Start miSOPROStol Tablet, 200 MCG, as directed, Orally, 8-12 hrs prior to appointment, 1 days, 1, Refills 0.?Imaging: Sonohysterogram * Procedure Codes:? * Follow Up:?1 Year (Reason: Y early Brand Strategist Exam) * Images: Billing Information: * Visit Code:? 19669 Preventive Care Est Pt. Age 40-64. 33112 OFFICE O/P EST MOD 30 MIN. * Procedure Codes:? 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 She has been in state of good health since her last exam. She had a BSO this year. She has the following concerns: she reports one episode of brownish vaginal discharge during exercise a few weeks ago. She has received the Moderna Covid-19 vaccine. Relationship status: for 15 years. Her was recently diagnosed with Stage 4 Prostate Cancer and Li-Fraumeni syndrome. Her daughter does not have the mutation. She is not sexually active. Sexual partner(s): male. She does not wish to have STI testing. She does not report vaginal dryness. She does have hot flashes/night sweats - tolerable. The patient has never had an abnormal pap smear. Her most recent pap smear was 02/03/23 - NIL, neg HR HPV. Next due for cotesting in 2027. She has been diagnosed with breast cancer in the left breast and axillary node. She does not have a family history of breast cancer. Her last mammogram was 09/21/23. She also had a breast MRI on 10/18/23, as ordered by her doctor at the [facility]. The patient does exercise. She exercises x 5 days/week by walking/jogging on the treadmill (interval training). Examination Category Sub-Category Detail Notes Category Not es General Examination GENERAL APPEARANCE: in no ac platinum distress, well developed, well nourished, polisher and buffer present in room HEAD: normocephalic, atrau matic NECK/THYROID: neck supple, full ra nge of motion, thyroid normal ABDOMEN: soft, non-tender, no n distended without masses or hepatosplenomegay NEUROLOGIC: alert and oriented, gait normal SKIN: normal, good turgor, no rashes, no suspicious lesions BACK: no costovertebral an gle tenderness BREASTS: normal, no dimpling, no discharge, no drainage, no masses palpable bilaterally, nontender, left breast with surgical scar in lower midline LYMPH NODES: no axillary or supra clavicular adenopathy RECTAL: normal tone, no mass es palpable PSYCH: alert, oriented, cog nitive function intact, cooperative with exam, good eye contact, mood/affect full range, speech clear FEMALE GENITOURINARY: Vulva without lesi ons or masses, vagina pink without abnormal discharge, lesions or masses, cervix appears normal and is not tender to palpation, uterus is normal size, mobile, nontender and anteverted, ovaries are surgically absent
--- OUTSIDE RECORDS SUMMARY | 2025-01-31 08:06 | XMS_ITS | Continuity of Care Document ---
Author Organization [facility] Address [address] [place] [address]- Care Team Providers Care Inspector Open Die Name Role Phone Polina Ventura Primary Care Physician [phone] Encounter [facility] Date(s): 12/04/24 - 01/03/25 [facility] [address] [place] [id number] Encounter Type: Triage Allergies, Adverse Reactions, Alerts [...] Maintenance, 02/14/24 3:01:00 PM EDT, [facility], 170, cm, 01/03/24 15:29:00 EST, Height, 68.5, kg, 01/03/24 15:29:00 EST, Dry Weight Start Date: 02/14/24 Status: Ordered Quantity: 90.0 Unit: tablet Repeat number: 1 atorvastatin 20 mg oral tablet See Instructions, TAKE 1 TABLET BY MOUTH DAILY AFTER SUPPER, # 90 tablet, 1 Refills, Maintenance, 07/30/24 2:43:00 PM EDT, [facility], 170, cm, 04/30/24 15:07:00 EDT, Height, 68.6, [...] AM EST, Route to Pharmacy Electronically, [facility]/pharmacy #[id number], Partial fill upon patient request if [...] Team Personnel Name: Purvi Ross RN Position: [facility] Onco RN Member Role: Primary Care Nurse Name: Polina Ventura Position: Reference Physician Member Role: PCP Address: [address] [place] [id number] Telecom: Name: Pat Baltazar RN Position: S [...] Insurance Providers Guarantor name: MANUELA CANTU [facility] Information #: 1 Payer: [facility] Member Number: JAZZMINE Policy Number: NA Group Number: NA
--- OUTSIDE RECORDS SUMMARY | 2025-01-31 08:06 | XMS_ITS ---
Author Organization [employer] Address [address] [facility] [address] [place] [address] Care Team Providers Care Tire Rebuilder Name Role Phone CHAVAZHANE (), AKIRA Primary Care Provider BLANCA Lau Unavailable [phone] REASON FOR VISIT RESEND MISO TODAY Medications Medication SIG (Take, Route, Fr equency, Duration) Notes Start Date End Date Status miSOPROStol 200 MCG as directed Orally 8 -12 hrs prior to appointment for 1 days 02/06/2024 Active Encounters Encounter Location Date Provider Diagnosis [facility] [employer] [address] [address] 02/21/2024 BLANCA PRITCHARD Abnormal uterine and vaginal bleeding, unspecified N93.9 Assessments Encounter Date Diagnosis (ICD Code) Assessment Notes Treatment Notes Treatment Clinical Notes Section Notes 02/21/2024 Abnormal uterine and vaginal bleeding, unspecified (ICD-10 - N93.9) Plan Of Treatment Medication Medication Name Sig Start Date Stop Date Notes miSOPROStol 200 MCG as directed Orally 8 -12 hrs prior to appointment for 1 days 02/06/2024 Next Appt Details Provider Name:BLANCA Ackerman, 02/11/2025 08:00:00 AM, [address] [facility], [address], [place], [address], Progress Notes * MANUELA CANTUDOB:1980 ([age] yo F)Acc No.[id number]:02/21/2024 Patient:?MANUELA CANTU :1980???Age:43 Y???Sex:Female Address:[address] [place] [address], [place], [address] * Refills? Refill miSOPROStol Tablet, 200 MCG, Orally, 1, as directed, 8-12 hrs prior to appointment, 1 days, Refills=0 * true * Date:? Generated for Charis ridley/Jaki/Briitting on:?01/31/2025 08:05 AM EDT
--- OUTSIDE RECORDS SUMMARY | 2025-01-31 08:06 | XMS_ITS | Clinical Summary ---
Author Organization [facility], Address [address] [place] [address] Phone Care Team Providers Care Security Operations Center Operator Name Role Phone Jenn De La Cruz MD Primary Care Provider [phone] Allergies No known active allergies Medications escitalopram [...] series) 12/26 Influenza Vaccine (#1) 2024 Insurance [facility] Care Teams Security Operations Center Operator Relationship Specialty Start Date End Date Jenn De La Cruz MD [address] [place] [id number] PCP - General Internal Medicine 04/28/22
--- OUTSIDE RECORDS SUMMARY | 2025-01-31 08:06 | XMS_ITS ---
Continuity of Care Document (CCD) Created on: January 31, 2025 Jenn Moralez External Reference #: [id number] : [id number] Sex: Female Author Organization [facility] [address] [facility] [address] [place] [address] Phone [phone] Problems Active Problems Provider Date Multinodular goiter [...] SIG Qnty Indications Ordering Provider Date Fluoxetine [id number] Tablets Take 3 Tablet By Mouth Daily Elise Ledezma M.D. 01/19/2024 Lamotrigine [id number] Tablets ER 24HR Take 2 Tablets By Mouth Every Day For 90 Days Lisa Resendez MD Atorvastatin Veyhsis46pa Tablets Take 1 Tablet By Mouth Daily After Supper Nolvia Mcelroy M.D. Folic Uwzs6gl Tablets Take 1 Tablet By Mouth Every Day Lisa Resendez MD Vnvgbmulerp4sl Tablets Take 1 Tablet By Mouth Every Day Unknown Vital Signs Date Vital Result Comment 01/17/2025 8:35am BP Systolic 104 mmHg BP Diastolic 80 mmHg Heart Rate 79 /min Height 67 inches 5'7 Weight 159.00 lb BMI (Body Mass Index) 24.9 kg/m2 Results Test Acquired Date Facility Test Result H/L Range N ote TSH+Free T4 07/18/2024 [facility] TSH 1.030 uIU/mL 0.450-4.50 0 T4,Free(Direct) 1.06 ng/dL 0.82- 1.77 TSH reflex to T4F 01/23/2024 [facility] TSH reflex to T4F 0.915 uIU/mL 0.450-4.50 0 Thyroid Peroxidase (Tpo) Ab 01/23/2024 [facility] Thyroid Peroxidase (Tpo) Ab <9 IU/mL 0-34 Medical Devices Description No Information Available Encounters Type Date Location Provider Dx Diagnosis Office Visit 07/18/2024 9:15a Main Office PIERCE Perales E04.2 Nontoxic mult inodular goiter Assessments Date Code Description Provider 07/18/2024 E04.2 Nontoxic multinodular goiter PIERCE Perales Plan of Treatment Future Appointment(s):* 01/17/2026 8:00 am - PIERCE Perales at Main Office 07/18/2024 - PIERCE Perales* E04.2 Nontoxic multinodular goiter* New Xrays: * Ultrasound Thyroid, Scheduled: 08/07/24 Functional Status Description No Information Available Mental Status Description No Information Available Referrals Description No Information Available
--- OUTSIDE RECORDS SUMMARY | 2025-01-31 08:06 | XMS_ITS ---
Author Organization [facility] Address [address] [facility] [address] [place] [address] Care Team Providers Care Roll Threader Operator Name Role Phone CHAVAZHANE (), AKIRA Primary Care Provider U BLANCA Shields Unavailable [phone] REASON FOR VISIT HSONO/EB/AUB Medications Medication SIG (Take, Route, Frequency, Duration) Notes Start Date End Date Status Folic Acid 1 MG 1 tablet Orally Once a day Active Multivitamin Active lamoTRIgine ER 300 MG (Prior Auth#:[id number]) Oral for 90 Active Atorvastatin Calcium 20 MG TAKE 1 TABLET BY MOUTH DAILY AFTER SUPPER Oral for 90 Days Active miSOPROStol 200 MCG as directed Orally 8-12 hrs prior to appointment for 1 days 02/06/2024 Active Fluoxetine 30mg Active Arimidex 1 MG 1 tablet Orally Once a day for 30 day(s) Active Lupron 3.75 monthly Active Problems Problem Type SNOMED Code ICD Code Onset Dates Problem Status W/U Status Risk Notes Problem Postmenopausal bleeding (57325363) Postmenopausal bleeding (N95.0) Active confirmed Encounters Encounter Location Date Provider Diagnosis [address] [address] [facility] [address] [place] [address] 02/24/2024 BLANCA PRITCHARD Postmenopausal bleed ing N95.0 Assessments Encounter Date Diagnosis (ICD Code) Assessment Notes Treatment Notes Treatment Clinical Notes Section Notes 02/24/2024 Postmenopausal bleeding (ICD-10 - N95.0) Plan Of Treatment Next Appt Details Follow Up: prn, Reason: Provider Name:BLANCA Ackerman, 02/11/2025 08:00:00 AM[facility] [address], [place], [address], Procedure Notes * Category Sub-Category Detail Notes Endometrial biopsy Test: Not indic ated Indication: Post menopausal blee ding Consent: General procedure, i ndications, risks, benefits, alternative treatments, and expected outcomes have been discussed with this patient. She has had an opportunity to ask questions, and all questions have been answered by me. She verbalizes understanding and to the best of my knowledge I feel the patient has been adequately informed and consented. The consent form has been signed. Prep: The patient was plac ed in the dorsal lithotomy position and a pelvic examination performed with the results documented above. A speculum was inserted into the vagina and the cervix cleaned with an antiseptic solution Procedure: A speculum was place d in the vaginal vault. The cervix was visualized and cleansed with an antiseptic solution. The cervix was grasped with a tenaculum. Gentle traction was used to align the cervix and uterine canal. A flexible endometrial biopsy instrument was unable to be passed through the cervical canal into the uterine cavity. Attempts to dilate the cervix with a #7 Devan dilator and a thin plastic dilator were unsuccessful. The instruments were removed from the vagina and the patient advised to report bleeding, fever, dizziness, or other symptoms. She tolerated the procedure well. She was discharged from the office in stable condition. We discussed options of 1. monitor and call with additional bleeding (she has a 3mm endometrium) or 2. refer for C Hysteroscopy. Patient opts to monitor and states she will call with additional bleeding. Progress Notes * MANUELA CANTUDOB:1980 ([age] yo F)Acc No.[id number]:02/24/2024 Patient:?MANUELA CANTU Provider:?BLANCA PRITCHARD MD :1980???Age:43 Y???Sex:Female D ate:02/24/2024 Address:[address] [place] [address], [employer] Pcp:AKIRA SANDERSON Subjective: * Chief Complaints: * ???HSONO/EB/AUB * HPI: ???CUSTOMER LEADER (Procedures/Surgeries):?Patient presents today for sonohysterogram and endometrial biopsy. Karine is a 43 yo who has been diagnosed with a left breast cancer and was initially treated with lupron, but more recently had a BSO. So she is surgically menopausal and at her recent therapist occupational annual exam, she reported??one episode of brownish vaginal discharge during exercise a few weeks ago. She is here today for evaluation of this bleeding. Her was recently diagnosed with Stage 4 prostate cancer. * Medical History:? * Medications:?TakingFluoxetin e , Notes to Pharmacist: 30mgArimidex 1 MG Tablet 1 tablet Orally Once a day Lupron , Notes to Pharmacist: 3.75 monthlyFolic Acid 1 MG Tablet 1 tablet Orally Once a day Multivitamin lamoTRIgine ER 300 MG Tablet Extended Release 24 Hour (Prior Auth#:[id number]) Oral Atorvastatin Calcium 20 MG Tablet TAKE 1 TABLET BY MOUTH DAILY AFTER SUPPER Oral miSOPROStol 200 MCG Tablet as directed Orally 8-12 hrs prior to appointment Taking Fluoxetine , Notes to Pharmacist: 30mgTaking Arimidex 1 MG Tablet 1 tablet Orally Once a day Taking Lupron , Notes to Pharmacist: 3.75 monthlyTaking Folic Acid 1 MG Tablet 1 tablet Orally Once a day Taking Multivitamin Taking lamoTRIgine ER 300 MG Tablet Extended Release 24 Hour (Prior Auth#:[id number]) Oral Taking Atorvastatin Calcium 20 MG Tablet TAKE 1 TABLET BY MOUTH DAILY AFTER SUPPER Oral Taking miSOPROStol 200 MCG Tablet as directed Orally 8-12 hrs prior to appointment Objective: * Vitals:? Assessment: * Assessment: 1.?Postmenopausal bleeding - N95.0 (Primary)? Plan: * Treatment: * Procedures:?Endometrial biopsy :? Test:?Not indicated.?Indication:?Post menopausal bleeding.?Consent:?General procedure, indications, risks, benefits, alternative treatments, and expected outcomes have been discussed with this patient. She has had an opportunity to ask questions, and all questions have been answered by me. She verbalizes understanding and to the best of my knowledge I feel the patient has been adequately informed and consented. The consent form has been signed..?Prep:?The patient was placed in the dorsal lithotomy position and a pelvic examination performed with the results documented above. A speculum was inserted into the vagina and the cervix cleaned with an antiseptic solution.?Procedure:?A speculum was placed in the vaginal vault. The cervix was visualized and cleansed with an antiseptic solution. The cervix was grasped with a tenaculum. Gentle traction was used to align the cervix and uterine canal. A flexible endometrial biopsy instrument was unable to be passed through the cervical canal into the uterine cavity. Attempts to dilate the cervix with a #7 Devan dilator and a thin plastic dilator were unsuccessful.??The instruments were removed from the vagina and the patient advised to report bleeding, fever, dizziness, or other symptoms. She tolerated the procedure well. She was discharged from the office in stable condition.? We discussed options of 1. monitor and call with additional bleeding (she has a 3mm endometrium)? or? 2. refer for [facility] Hysteroscopy. Patient opts to monitor and states she will call with additional bleeding..? * Procedure Codes:?60057 BIOPS Y OF UTERUS LINING, Modifiers: 53 * Follow Up:?prn * Images: Billing Information: * Visit Code:? * Procedure Codes:? 71194 BIOPSY OF UTERUS LINING. Modifiers: 53 * Sign off status: Completed true * Provider:?BLANCA PRITCHARD MD Date:?2023 Generated for Charis ridley/Jaki/eTransmitting on:?01/31/2025 08:05 AM EDT
--- OUTSIDE RECORDS SUMMARY | 2025-01-31 08:06 | XMS_ITS | Continuity of Care Document ---
Author Organization [facility] Address [address] [place] [address]- Care Team Providers Care Industrial Production Manager Name Role Phone Polina Ventura Primary Care Physician Encounter [facility] Date(s): 12/04/24 - 01/03/25 [facility] [address] [place] [address] Encounter Type: Triage Allergies, Adverse Reactions, [...] Maintenance, 02/14/24 3:01:00 PM EDT, [facility], 170, cm, 01/03/24 15:29:00 EST, Height, 68.5, kg, 01/03/24 15:29:00 EST, Dry Weight Start Date: 02/14/24 Status: Ordered Quantity: 90.0 Unit: tablet Repeat number: 1 atorvastatin 20 mg oral tablet See Instructions, TAKE 1 TABLET BY MOUTH DAILY AFTER SUPPER, # 90 tablet, 1 Refills, Maintenance, 07/30/24 2:43:00 PM EDT, [facility], 170, cm, 04/30/24 15:07:00 EDT, Height, 68.6, [...] 8:58:00 AM EST, Route to Pharmacy Electronically, [facility]/pharmacy #[id number], Partial fill upon patient request if [...] Care team information Care Team Personnel Name: Pruvi Ross RN Position: [facility] Onco RN Member Role: Primary Care Nurse Name: Polina Ventura Position: Reference Physician Member Role: PCP Address: [address] [place] [address] Telecom: Name: Pat Baltazar RN Position: [...] Insurance Providers Guarantor name: MANUELA CANTU [facility] Information #: 1 Payer: [facility] Member Number: JAZZMINE Policy Number: NA Group Number: [id number]
== END 2025-01-31 08:02 | disposition home or self-care (01) ==
LOC: HO.US 08:01
PROVIDERS: PCP Physician Assistant Medical; Visit Provider Physician Assistant Medical
DX: R74.8 Abnormal levels of other serum enzymes (principal)
CPT/HCPCS: 76705; 76981

== ENCOUNTER → 2025-01-31 08:02 | Outpatient (BNV) | payer OTHER, SELFPAY | PROVIDERS: PCP Physician Assistant Medical; Visit Provider Radiology Diagnostic Radiology | DX: K80.20 Calculus of gallbladder without cholecystitis without obstruction (principal) | CPT/HCPCS: 76705; 76981 ==

== ENCOUNTER 2025-02-11 13:04 | Outpatient (AMB) | payer OTHER, SELFPAY ==
--- NOTE | 2025-02-11 13:20 | MHC.OFFVIS ---
Intake Visit Reasons: Gallbladder problems Intake Note: Patient referred by pcp Polina Flanagan PA-C for Cholesterolosis of gallbladder. Patient c/o: denies pain, nausea. Never had any problems until recent abdomen US. [facility] US: 01-31-2025 Lav Crewman Required: No Accompanied by: Self / Same As Patient Allergies No Known Allergies Allergy (Verified 02/11/25 13:23) Medication List - Last Reconciled 02/11/25 by Steve Hurst MD anastrozole 1 mg PO DAILY atorvastatin 20 mg PO DAILY calcium carb,lactat-vitamin D3 200 mg-6.25 mcg (250 unit) tabs PO fluoxetine 40 mg PO DAILY folic acid 10 mg PO DAILY lamotrigine ER (Lamictal XR) 600 mg PO BEDTIME multivitamin 1 tab PO DAILY HPI Comments Details: Patient was status post ultrasound of her liver and upper abdomen because of mild elevation of LFTs. Incidental findings were of cholelithiasis and question of gallbladder polyps. Patient was no biliary symptoms or complaints. She has no right upper quadrant pain or postprandial discomfort. She denies any fatty food intolerance. Patient otherwise has regular bowel habits. No other GI issues or complaints. Never been jaundiced Chart was reviewed and patient evaluated. Status post breast cancer surgery [facility] Medical History (Updated 02/01/25 @ 16:52 by PIERCE Mays) Gallbladder polyp Routine physical examination Elevated liver enzymes Essential tremor Thyroid nodule Depression with anxiety Pure hypercholesterolemia Breast cancer Surgical History (Updated 02/11/25 @ 13:33 by Steve Hurst MD) Cholelithiases No pertinent past surgical history Family History (Updated 12/17/24 @ 16:12 by Anh Haynes CMA) Father No problems noted. Mother No problems noted. 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 A repeat ultrasound will be ordered for 6 months time and she will see me after the study or p.r.n. should she develop any symptoms. All questions answered. (2) Gallbladder polyp: Code(s): K82.4 - Cholesterolosis of gallbladder Category: Medical Plan: See above Orders: Orders US abdomen limited 6 Months K80.20 - Calculus of gallbladder without cholecystitis without obstruction, K82.4 - Cholesterolosis of gallbladder Coding Level of Care Code New Pt Level 4 (56932) Diagnoses Cholelithiases K80.20 Gallbladder polyp K82.4
--- OUTSIDE RECORDS SUMMARY | 2025-02-11 14:43 | XMS_ITS ---
Author Organization [facility] Address [address] [place] [address] Care Team Providers Care Associate Biological Sales Name Role Phone BETTIE RUIZ PA-C Primary Care Provider BLANCA Tomlinson Unavailable [phone] REASON FOR VISIT RESEND MISO TODAY Medications Medication SIG (Take, Route, Fr equency, Duration) Notes Start Date End Date Status miSOPROStol 200 MCG as directed Orally 8 -12 hrs prior to appointment for 1 days 02/06/2024 Active Encounters Encounter Location Date Provider Diagnosis [facility] [address] [facility] [address] [place] [address] 02/21/2024 BLANCA PRITCHARD Abnormal uterine and vaginal [...] 02/06/2024 Next Appt Details Provider Name:BLANCA Ackerman, 02/17/2026 08:00:00 AM, [address] [facility], [address], [place], [address], Progress Notes * MANUELA CANTUDOB:1980 ([age] yo F)Acc No.[id number]:02/21/2024 Patient:?MANUELA CANTU :1980???Age:43 Y???Sex:Female Address:[address] [place] [address], [facility], [address] * Refills? Refill miSOPROStol Tablet, 200 MCG, Orally, 1, as directed, 8-12 hrs prior to appointment, 1 days, Refills=0 * true * Date:? Generated for Charis ridley/Jaki/Briitting on:?02/11/2025 02:43 PM EDT
--- OUTSIDE RECORDS SUMMARY | 2025-02-11 14:43 | XMS_ITS | Continuity of Care Document ---
Author Organization [facility] [address] [place] [address] Phone [phone] Problems Active Problems Provider Date Multinodular goiter [...] SIG Qnty Indications Ordering Provider Date Fluoxetine DVY02vy Tablets Take 3 Tablet By Mouth Daily Elise Ledezma M.D. 01/19/2024 Lamotrigine GU211pi Tablets ER 24HR Take 2 Tablets By Mouth Every Day For 90 Days Lisa Resendez MD Atorvastatin Hackvzk40cw Tablets Take 1 Tablet By Mouth Daily After Supper Nolvia Mcelroy M.D. Folic Qhzk6ay Tablets Take 1 Tablet By Mouth Every Day Lisa Resendez MD Ysxaattekfc6za Tablets Take 1 Tablet By Mouth Every [...]
--- OUTSIDE RECORDS SUMMARY | 2025-02-11 14:43 | XMS_ITS | Clinical Summary ---
Author Organization [facility], Address [address] [place] [address] Phone Care Team Providers Care Labor Relations Worker Name Role Phone Jenn De La Cruz MD Primary Care Provider [phone] Allergies No known active allergies Medications escitalopram [...] [facility] Care Teams Labor Relations Worker Relationship Specialty Start Date End Date Jenn De La Cruz MD [address] [place] [address] PCP - General Internal Medicine 04/28/22
--- OUTSIDE RECORDS SUMMARY | 2025-02-11 14:43 | XMS_ITS | Patient Health Record ---
Author Organization [facility] Address [address] [place] [address] [address] [place] [address] Care Team Providers Care Impact Retail Service Merchandiser Name Role Phone BETTIE RUIZ PA-C Primary Care Provider BLANCA Tomlinson Unavailable [phone] Allergies No Known Allergies Reason For Referral No Information Medications Medication SIG (Take, Route, Frequency, Duration) Notes Start Date End Date Status Folic Acid 1 MG 1 tablet Orally Once a day Active Multivitamin Active lamoTRIgine ER 300 MG (Prior Auth#:[id number]) Oral for 90 Active Atorvastatin Calcium 20 MG TAKE 1 TABLET BY MOUTH DAILY AFTER SUPPER Oral for 90 Days Active Fluoxetine 30mg Active Arimidex 1 MG [...] Risk Notes Problem Excessive and frequent menstruation (261804199) Excessive and frequent menstruation with regular cycle (N92.0) Active confirmed Problem Postmenopausal bleeding (26662851) Postmenopausal bleeding (N95.0) Active confirmed Problem Malignant neoplasm of lower-inner quadrant of female breast (986773545) Malignant neoplasm of lower-inner quadrant of left female breast (C50.312) Active confirmed Problem Anxiety disorder (657183060) Anxiety disorder, unspecified (F41.9) Active confirmed Problem Hypoactive sexual desire disorder (613564826) 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) Active confirmed Problem Epilepsy (34769451) Epilepsy, unspecified, not intractable, without status epilepticus (G40.909) Active confirmed Problem Irregular Menstruation (76141152) Other specified irregular menstruation (N92.5) Active confirmed Problem Abnormal uterine bleeding (35435715821686) Abnormal uterine and vaginal bleeding, unspecified (N93.9) Active confirmed Problem Personal history of primary malignant neoplasm of breast (797405118) Personal history of malignant neoplasm of breast (Z85.3) Active confirmed Problem COVID-19 (955670365) COVID-19 (U07.1) Active confirmed Vital Signs Temperature 97.5 degrees Fahrenheit 02/11/2025 Blood pressure diastolic 72 mm Hg 02/11/2025 Height 67 in 02/11/2025 Blood pressure systolic 118 mm Hg 02/11/2025 Weight 156 lbs 02/11/2025 BMI 24.43 kg/m2 02/11/2025 Encounters Encounter Location Date Provider Diagnosis [facility] [place] [address] [address] 02/21/2024 BLANCA PRITCHARD Abnormal uterine and vaginal bleeding, unspecified N93.[address] [address] 02/24/2024 BLANCA PRITCHARD Postmenopausal bleed ing N95.0 [place] [address] [address] 02/11/2025 BLANCA PRITCHARD Encounter for gynecological examination (general) (routine) without abnormal findings Z01.419 ; Encounter for screening mammogram for malignant neoplasm of breast Z12.31 and Personal history of malignant neoplasm of breast Z85.3 Assessments Encounter Date Diagnosis (ICD Code) Assessment Notes Treatment Notes Treatment Clinical Notes Section Notes 02/21/2024 Abnormal uterine and vaginal bleeding, unspecified (ICD-10 - N93.9) 02/24/2024 Postmenopausal bleeding (ICD-10 - N95.0) 02/11/2025 Encounter for gynecological examination (general) (routine) without abnormal findings (ICD-10 - Z01.419) Discussed cervical cancer screening with either cytology alone every 3 years or high risk HPV co-testing every 5 years as per ASCCP guidelines. Advised continued annual pelvic exams. Patient encouraged to increase her level of exercise. SBE technique encouraged/tau ght. Patient reminded when annual mammogram is due. 02/11/2025 Encounter for screening mammogram for malignant neoplasm of breast (ICD-10 - Z12.31) Mammograms ordered by [facility] 02/11/2025 Personal history of malignant neoplasm of breast (ICD-10 - Z85.3) Plan Of Treatment Pending Test Test Name Order Date Sonohysterogram 02/06/2024 Urinalysis 12/14/2019 COMPLETE BLOOD COUNT 04/14/2021 FREE TESTOSTERONE 12/06/2018 TESTOSTERONE 12/06/2018 THIN PREP,HPV,JANEEN IF HPV+ (>29YR)(SCRN) 11/29/2017 MM Digital Screening Mammogram 3D 2022 MM Digital Screening Mammogram 3D 2021 MM Digital Screening Mammogram 3D 2023 Next Appt Details Provider Name:BLANCA Ackerman, 02/17/2026 08:00:00 AM, [address], [address], [place], [address], Insurance Providers Payer Name Payer Address Payer Phone Subscriber Number Group Number Insured Name Patient Relationship to Insured Coverage Start Date Coverage End Date [facility] [address] [place] [address] [id number] MANUELA BARTON Self - patient is the [...] grade 1 invasive ductal carcinoma, +axillary mets; ER/KS+, Her2/mateus negative 10/2022 all lymphnodes removed ( ) bypass 01/03 23 Bilateral salpingo-oophorectomy 09/2023 Hospitalization History Reason Date(Month/Year) childbirth as a child - 3 episodes of m igraines that caused her to temporarily lose sight, and lose consciousness
--- OUTSIDE RECORDS SUMMARY | 2025-02-11 14:43 | XMS_ITS | Continuity of Care Document ---
Author Organization [facility] Address [address] [place] [address]- Care Team Providers Care Guest Service Representative Name Role Phone Polina Ventura Primary Care Physician [phone] Encounter [facility] Date(s): 01/11/25 - 02/10/25 [facility] [address] [place] [id number] Encounter Type: Triage Allergies, Adverse Reactions, Alerts [...] Maintenance, 02/14/24 3:01:00 PM EDT, [facility], 170, cm, 01/03/24 15:29:00 EST, Height, 68.5, kg, 01/03/24 15:29:00 EST, Dry Weight Start Date: 02/14/24 Status: Ordered Quantity: 90.0 Unit: tablet Repeat number: 1 atorvastatin 20 mg oral tablet See Instructions, TAKE 1 TABLET BY MOUTH DAILY AFTER SUPPER, # 90 tablet, 1 Refills, Maintenance, 07/30/24 2:43:00 PM EDT, [facility], 170, cm, 04/30/24 15:07:00 EDT, Height, 68.6, [...] 8:58:00 AM EST, Route to Pharmacy Electronically, [facility]/pharmacy #[id number], Partial fill upon patient request [...] Team Personnel Name: Purvi Ross RN Position: [facility] Onco RN Member Role: Primary Care Nurse Name: Polina Ventura Position: Reference Physician Member Role: PCP Address: [address] [place] [id number] Telecom: Name: Pat Baltazar RN Position: S [...] Insurance Providers Guarantor name: MANUELA CANTU [facility] Information #: 1 Payer: [facility] Member Number: NA Policy Number: NA Group Number: NA
--- OUTSIDE RECORDS SUMMARY | 2025-02-11 14:43 | XMS_ITS ---
Author Organization [facility] Address [address] [facility] [address] [place] [address] Care Team Providers Care Assurance Senior Manager Insurance Name Role Phone BETTIE RUIZ PA-C Primary Care Provider BLANCA Tomlinson Unavailable [phone] REASON FOR VISIT HSONO/EB/AUB Medications Medication SIG (Take, Route, Frequency, Duration) Notes Start Date End Date Status Folic Acid 1 MG 1 tablet Orally Once a day Active Multivitamin Active lamoTRIgine ER 300 MG (Prior Auth#:[id number]) Oral for 90 Active Atorvastatin Calcium 20 [...] W/U Status Risk Notes Problem Postmenopausal bleeding (76379801) Postmenopausal bleeding (N95.0) Active confirmed Encounters Encounter Location Date Provider Diagnosis [facility] [address] [facility] [address] [place] [address] 02/24/2024 BLANCA PRITCHARD Postmenopausal bleed ing N95.0 Assessments Encounter Date Diagnosis (ICD Code) Assessment Notes Treatment Notes Treatment Clinical Notes Section Notes 02/24/2024 Postmenopausal bleeding (ICD-10 - N95.0) Plan Of Treatment Next Appt Details Follow Up: prn, Reason: Provider Name:BLANCA Ackerman, 02/17/2026 08:00:00 [facility] [address], [place], [address], Procedure Notes * Category Sub-Category Detail Notes [...] a 3mm endometrium) or 2. refer for [facility] Hysteroscopy. Patient opts to monitor and states she will call with additional bleeding. Progress Notes * MANUELA CANTUDOB:1980 ([age] yo F)Acc No.[id number]:02/24/2024 Patient:?MANUELA CANTU Provider:?BLANCA PRITCHARD MD :1980???Age:43 Y???Sex:Female D ate:02/24/2024 Address:[address] [place] [address], [place] Pcp:AKIRA SANDERSON Subjective: * Chief Complaints: * ???HSONO/EB/AUB * HPI: ???PARAFFINER (Procedures/Surgeries):?Patient presents today for sonohysterogram and endometrial biopsy. Karine is a 43 yo who has been diagnosed with a left breast cancer and was initially treated with lupron, but more recently had a BSO. 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 or? 2. refer for [facility] Hysteroscopy. Patient opts to monitor and states she will call with additional bleeding..? * Procedure Codes:?97436 BIOPS Y OF UTERUS LINING, Modifiers: 53 * Follow Up:?prn * Images: Billing Information: * Visit Code:? * Procedure Codes:? 55961 BIOPSY OF UTERUS LINING. Modifiers: 53 * Sign off status: Completed true * Provider:?BLANCA PRITCHARD MD Date:?2023 Generated for Charis ridley/Jaki/Briitting on:?02/11/2025 02:43 PM EDT
--- OUTSIDE RECORDS SUMMARY | 2025-02-11 14:44 | XMS_ITS ---
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 Physical Medications Medication SIG (Take, Route, Frequency, Duration) Notes Start Date End Date Status Folic Acid 1 MG 1 tablet Orally Once a day Active Multivitamin Active lamoTRIgine ER 300 MG (Prior Auth#:[id number]) Oral for 90 Active Atorvastatin Calcium 20 [...] Problem Status W/U Status Risk Notes Problem Personal history of primary malignant neoplasm of breast (941798372) Personal history of malignant neoplasm of breast (Z85.3) Active confirmed Vital Signs Temperature 97.5 degrees Fahrenheit 02/12/20 25 Blood pressure systolic 118 mm Hg 02/12/20 25 Blood pressure diastolic 72 mm Hg 025 Height 67 in 02/11/2025 Weight 156 lbs 02/11/2025 BMI 24.43 kg/m2 02/11/2025 Encounters Encounter Location Date Provider Diagnosis [facility] [address] [place] [address] 02/11/2025 BLANCA PRITCHARD Encounter for gynecological examination (general) (routine) without abnormal findings Z01.419 ; Encounter for screening mammogram for malignant neoplasm of breast Z12.31 and Personal history of malignant neoplasm of breast Z85.3 Assessments Encounter Date Diagnosis (ICD Code) Assessment Notes Treatment Notes Treatment Clinical Notes Section Notes 02/11/2025 Encounter for gynecological examination (general) (routine) [...] breast (ICD-10 - Z12.31) Mammograms ordered by [facility] 02/11/2025 Personal history of malignant neoplasm of breast (ICD-10 - Z85.3) Plan Of Treatment Treatment Notes Assessment Notes Encounter for gynecological examination (general) (routine) without abnormal findings Discussed cervical cancer screening with either cytology alone every 3 years or high risk HPV co-testing every 5 years as per ASCCP guidelines. Advised continued annual pelvic exams. Patient encouraged to increase her level of exercise. SBE technique encouraged/taught. Patient reminded when annual mammogram is due. Encounter for screening mamm ogram for malignant neoplasm of breast Mammograms ordered by [facility] Next Appt Details Follow Up: 1 Year, Reason: Y early Marketing Writer Exam Provider Name:BLANCA Ackerman, 02/17/2026 08:00:00 AM, [address], [address], [place], [address], Progress Notes * JENN CANTUDOB:1980 ([age] yo F)Acc No.[id number]:02/11/2025 PROGRESS NOTES Patient:?JENN CANTU Provider:?BLANCA PRITCHARD MD :1980???Age:44 Y???Sex:Female D ate:02/11/2025 Address:[address] [place] [address], [place], [place] Pcp:BETTIE RUIZ PA-C Subjective: * Chief Complaints: * ???1. 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 ? She has been in state of good health since her last exam.She has to see a surgeon for gallstones and polyps, due to elevated LFTs.??She has the following concerns: none ? She has received the Moderna Covid-19 vaccine. ? Relationship status: for 16 years. Her was diagnosed with Stage 4 Prostate Cancer and Li-Fraumeni syndrome in 2023. He has been stable for the last year. Her daughter does not have the mutation. [...] of breast cancer. Her last mammogram was 09/25/24. She also had a breast MRI on 04/16/2024, as ordered by her doctor at the [facility]. ? The patient does exercise. She exercises x 4 days/week by power walking/jogging on the treadmill (interval training). * ROS:?Annual Marketing Writer Exam ROS:?Bowel habit changes?denies.?Bladder symptoms?denies.?Vaginal discharge, unusual?denies.?Vaginal itch or odor?denies.?abnormal bleeding?denies.?weight or appetite changes?denies.?Chest pains, SOB?denies.?depression? admits,?well-managed.?Breast:?Denies?Breast lump.?Denies?Nipple discharge.?Hematology:?Denies?Swollen glands.?Skin:?Patient denies?changing moles.?Comments?has upcoming derm appointment for skin check.?Psychiatric:?Admits?Anxiety,?sees therapist.?Denies?Suicidal thoughts.? * Medical History:?Epilepsy, u nspecified, not intractable, without status epilepticus, Anxiety disorder, unspecified, Hypoactive sexual desire disorder, Decreased libido, Malignant neoplasm of lower-inner quadrant of left female breast, COVID-19. * Marketing Writer History:?/ Para?11/14.?Sexual activity?currently sexually active, with men.?Last Pap Smear:?02/03/2023 NIL11/29/17 NIL, NEG HRHPV.?Mammogram:?09/25/2024 50-75% density, MRI 04/16/2024, 09/21/23 50-75% density, 03/12/2022 50-75% density, 03/02/2021 , 50-75% density.?Abnormal Pap Smear:?none.?LMP and menses?[place].?History of STD's:?none.? Control:?vasectomy.?Gardasil:?has not had vaccine.?SENIOR INTERACTIVE PRODUCER HISTORY MISC.?BRCA negative.? * OB History:?Total pregnancies?.? # 1:?normal spontaneous vaginal delivery (), 10/13/2009, Reny, 9lb 10oz, partial focal seizures.? * Surgical History:?Sclero the rapy (spider viens) 11/2018, left breast biopsy - grade 1 invasive ductal carcinoma, +axillary mets 03/2022, left breast lumpectomy/sentinel node - grade 1 invasive ductal carcinoma, +axillary mets; ER/UT+, Her2/mateus negative 10/2022, all lymphnodes removed (23 ) bypass 12/2022, Bilateral salpingo- oophorectomy 09/2023. * Hospitalization/Major Diagno stic Procedure:?as a child - 3 episodes of migraines that caused her to temporarily lose sight, and lose consciousness , childbirth . * Family History:?Mother: dieter fiore 71 yrs, hypothyroid.?Father: alive 73 yrs, high cholesterol, prostate cancer.?Maternal Grand Father: , Colon cancer in his late 80's.?Spouse: alive 50 yrs, Stage 4 Prostate Cancer and Li-Fraumeni [...] the past year??No ?Points?0 ?Interpretation?Negative ???Miscellaneous:?Children: yes. ?Domestic violence: no. ?Exercise: yes, 4-5 tmes wekly. ?Home smoke detector use: yes, smoke detectors, carbon monoxide detector. ?Housing: owns a home. ?Living with: spouse, daughter. ?Marital status: , Christopher. ?Natural support system: yes. 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 ?Pets: dogs: /2 hughes doodle, /2 labradoodle. ?Sexual abuse: no. ?Sexually active: yes, monogamous relationship. ?Verbal abuse: no. * Medications:?Taking Fluoxeti ne , Notes to Pharmacist: 30mg, Taking Arimidex 1 MG Tablet 1 tablet Orally Once a day , Taking Folic Acid 1 MG Tablet 1 tablet Orally Once a day , Taking Multivitamin , Taking lamoTRIgine ER 300 MG Tablet Extended Release 24 Hour (Prior Auth#:[id number]) Oral , Taking Atorvastatin Calcium 20 MG Tablet TAKE 1 TABLET BY MOUTH DAILY AFTER SUPPER Oral , Discontinued Lupron , Notes to Pharmacist: 3.75 monthly, Discontinued miSOPROStol 200 MCG Tablet as directed Orally 8-12 hrs prior to appointment , Medication List reviewed and reconciled with the patient * Allergies:?N.K.D.A. Objective: * Vitals:?Ht: 67 in, Wt:156lbs , BMI:24.43Index, BP:118/72mm Hg, Temp:97.5F. * Examination: ???General Examination: ?GENERAL APPEARANCE:?in no acute distress, well developed, well nourished, project management intern present in room.?HEAD:?normocephalic, atraumatic.?NECK/THYROID:?neck supple, full range of motion, thyroid normal.?LYMPH NODES:?no axillary or supraclavicular adenopathy.?SKIN:? normal, good turgor, no rashes, no suspicious lesions.?BREASTS:?normal, no dimpling, no discharge, no drainage, no masses palpable bilaterally, nontender, scar in lower left breast.?ABDOMEN:? soft, non-tender, non distended without masses or [...] (general) (routine) without abnormal findings - Z01.419 (Primary)???2.?Encounter for screening mammogram for malignant neoplasm of breast - Z12.31???3.?Personal history of malignant neoplasm of breast - Z85.3??? Plan: * Treatment: 2.?Encounter for screening m ammogram for malignant neoplasm of breast? Notes: Mammograms ordered by [facility]?? * Preventive Medicine:? ~~~~~~~~~~~~~ STRENGTH TRAINING ~~~~~~~~~~~~~ Anyone, at any fitness level, can and should add strength training to their routine. Strength training is an important part of an overall fitness program, mainly because lean muscle mass naturally diminishes with age. You'll increase the percentage of fat in your body if you don't do anything to replace the lean muscle you lose over time. Strength training can help you preserve and enhance your muscle mass (at any age!), develop strong bones and reduce the risk of osteoporosis, manage or lose weight and increase your metabolism to help you burn more calories. It will also improve your ability to do everyday activities and reduce symptoms of chronic conditions such as arthritis, back pain, obesity, heart disease and diabetes. Some research suggests that regular strength training may help improve thinking and learning skills. Don't be intimidated. You can strength train at home or in the gym, and you have plenty of options. You can rely on your body weight and do many exercises with little or no equipment, like pushups, pullups, planks and leg squats. Or you can go pro and choose to go with resistance tubing (a lightweight tubing that provides resistance when stretched), free weights like barbells and dumbbells, or weight machines at the gym. ~~~~~~~~~~~~~~~~~~~~~~~~~~~~~~~~~~~~~~~~~~~ SARCOPENIA AND THE IMPORTANCE OF STRENGTH TRAINING EXERCISE ~~~~~~~~~~~~~~~~~~~~~~~~~~~~~~~~~~~~~~~~~~~ What is sarcopenia? ~~~~~~~~~~~~ Sarcopenia refers to the process of losing skeletal muscle mass and strength. 'Sarco' is the [place]ican word referring to flesh, and 'penia' means a reduction in amount. Thus, the word describes a progressive weakening of the body caused by a 'change in body compensation in favor of fat and at the expense of muscle.' Everyone, beginning around age 25, starts to lose muscle mass, though the actual symptoms of this loss do not usually begin showing up until around the age of 40 or so. The process begins really picking up speed after the age of 65. In fact, around the age of 40, most women will lose almost a half-pound of muscle every year and replace it with fat. The result of this gradual loss of muscle is an insidious weakening of the body, loss of balance, loss of confidence upon walking, and a reduced ability to recover from near falls. As we lose strength, we become more inactive. This makes sense, because if we have less muscle, it takes much more effort to move, and we fatigue more easily. But also, with loss of strength comes loss of balance and stability. The fear of falling keeps many people sedentary, and a sedentary lifestyle opens the door for chronic illness. ~~~~~~~~~~~~~~ Take back your muscle ~~~~~~~~~~~~~~ And now for great news: you can delay sarcopenia and even reverse it. How? By lifting weights. Even though you cannot grow new muscles cells to replace the ones you have already lost, you can develop the ones that you have left. In fact, you can become stronger than you ever have in your life by simply beginning a strength training program. No matter how old you are, it is not too late to start. Even patients in nursing homes have seen transformation. After strength training, bedridden patients were able to begin walking with walkers, walker-dependent patients graduated to canes, and so on. And no matter how young you are, it is not too early to start! By starting early, you can significantly delay the effects of sarcopenia. As you begin lifting weights, you will notice a transformation in your body. You will have more energy, you will perform everyday tasks with noticeably more ease and your clothes will begin sagging on you, because you will be building muscle and burning up the fat deposits. You will have greater balance and more confidence. And perhaps best of all is the insurance policy you pay premiums on every time you choose to lift, because you are laying a strong, solid foundation for your later years. You are laying up health, independence and the ability to live well, not just long. DON'T LET ANOTHER DAY GO BY THAT YOU ARE LOSING MUSCLE. Take it back, and get ready to feel better than you ever have! . * Follow Up:?1 Year (Reason: Y early Marketing Writer Exam) * Images: Billing Information: * Visit Code:? 27107 Preventive Care Est Pt. Age 40-64. * Procedure Codes:? 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 She has been in state of good health since her last exam.She has to see a surgeon for gallstones and polyps, due to elevated LFTs. She has the following concerns: none She has received the Moderna Covid-19 vaccine. Relationship status: for 16 years. Her was diagnosed with Stage 4 Prostate Cancer and Li-Fraumeni syndrome in 2023. He has been stable for the last year. Her daughter does not have the mutation. [...] of breast cancer. Her last mammogram was 09/25/24. She also had a breast MRI on 04/16/2024, as ordered by her doctor at the [facility]. The patient does exercise. She exercises x 4 days/week by power walking/jogging on the treadmill (interval training). Examination Category Sub-Category Detail Notes Category Not es General Examination GENERAL APPEARANCE: in no ac paimiut distress, well developed, well nourished, project management intern present in room HEAD: normocephalic, atrau matic NECK/THYROID: neck supple, full ra nge of motion, thyroid normal ABDOMEN: soft, non-tender, no n distended without masses or hepatosplenomegay NEUROLOGIC: alert and oriented, gait normal SKIN: normal, good turgor, no rashes, no suspicious lesions BACK: no costovertebral an gle tenderness BREASTS: normal, no dimpling, no discharge, no drainage, no masses palpable bilaterally, nontender, scar in lower left breast LYMPH NODES: no axillary or supra clavicular [...]
== END 2025-02-11 13:35 | disposition home or self-care (01) ==
PROVIDERS: PCP Physician Assistant Medical; Visit Provider Surgery
DX: K80.20 Calculus of gallbladder without cholecystitis without obstruction (principal); K82.4 Cholesterolosis of gallbladder
CPT/HCPCS: 99204

== ENCOUNTER → 2025-02-11 13:04 | Outpatient (BNVA) | payer OTHER, SELFPAY | PROVIDERS: PCP Physician Assistant Medical; Visit Provider Surgery ==

== ENCOUNTER 2025-06-27 11:53 | Outpatient (AMB) | payer OTHER, SELFPAY ==
--- OUTSIDE RECORDS SUMMARY | 2025-06-21 23:59 | XMS_ITS | Continuity of Care Document ---
Author Organization [facility] Address [address] [place] [address] [address] [place] [address]- Care Team Providers Care Product Scientist Name Role Phone Polina Ventura Primary Care Physician Encounter [facility] Date(s): 05/22/25 - 06/21/[address] [place], [place] [address] Attending Physician: Admtr, Ar8 Admitting Physician: Admtr, Ar8 Referring Physician: Admtr, Ar8 Encounter Type: Triage Allergies, Adverse Reactions, Alerts [...] number: 1 anastrozole 1 mg oral tablet See Instructions, TAKE 1 TABLET BY MOUTH EVERY DAY, # 90 tablet, 3 Refills, Maintenance, 02/18/25 8:47:00 AM EDT, [facility], 170, cm, 12/04/24 14:34:00 EST, Height, 71.8, kg, 12/04/24 14:34:00 EST, Dry Weight Start Date: 02/18/25 Status: Ordered Quantity: 90.0 Unit: tablet Repeat number: 1 atorvastatin 20 mg oral tablet See Instructions, TAKE 1 TABLET BY MOUTH DAILY AFTER SUPPER, # 90 tablet, 1 Refills, Maintenance, 07/30/24 2:43:00 PM EDT, [facility], 170, cm, 04/30/24 15:07:00 EDT, Height, 68.6, [...] 100 in lifetime) entered on: 04/08/22 Sex Female Sex Representation Female (finding) Patient Care team information Care Team Personnel Name: Polina Ventura Position: Reference Physician Member Role: PCP Address: [address] [place] [address] Telecom: Name: Pat Baltazar RN Position: S [...] Insurance Providers Guarantor name: MANUELA CANTU Health Plan Information #: 1 Payer: [employer] Payer Identifier: JAZZMINE Member Number: [id number] Group Number: [id number] Subscriber Identifier: [id number] Relationship to Subscriber: self Coverage Type: Commercial Indemnity Coverage Verification Date: Telecom: NA Address:
--- OUTSIDE RECORDS SUMMARY | 2025-06-21 23:59 | XMS_ITS | Continuity of Care Document ---
Author Organization [facility] [place] [facility] Address [address] [place] [address] [address] [place] [address]- Care Team Providers Care Critical Care Educator Name Role Phone Ploina Ventura Primary Care Physician Encounter [facility] Date(s): 06/14/25 - 06/21/25 [facility] [address] [place] [id number] Attending Physician: Ryanne Cavazos Referring Physician: Polina Ventura Encounter Type: Office Visit Allergies, Adverse Reactions, Alerts Substance Criticality Severity [...] Maintenance, 02/18/25 8:47:00 AM EDT, [facility], 170, cm, 12/04/24 14:34:00 EST, Height, 71.8, kg, 12/04/24 14:34:00 EST, Dry Weight Start Date: 02/18/25 Status: Ordered Quantity: 90.0 Unit: tablet Repeat number: 1 atorvastatin 20 mg oral tablet See Instructions, TAKE 1 TABLET BY MOUTH DAILY AFTER SUPPER, # 90 tablet, 1 Refills, Maintenance, 07/30/24 2:43:00 PM EDT, [facility], 170, cm, 04/30/24 15:07:00 EDT, Height, 68.6, [...] Refills, Maintenance, 08/14/24 9:39:00 PM EDT, Capsule, [facility]/pharmacy #[id number], Partial fill upon patient request [...] 8:58:00 AM EST, Route to Pharmacy Electronically, [facility]/pharmacy #[id number], Partial fill upon patient request [...] Position: Reference Physician Member Role: PCP Address: [address] [place] [address] Telecom: Name: Pat Baltazar RN Position: S Onco RN Member Role: Primary Care Nurse Name: Gilda Bruno RN Position: S Onco RN Member Role: Primary Care Nurse Name: Abdirahman Vargas RN Position: S Onco RN Member Role: Primary Care Nurse Name: Savi Abraham RN Position: S Onco RN Member Role: Primary Care Nurse Care Team Related Persons Name: FRANKLYNKADIE Name: SILVER CANTU Insurance Providers Guarantor name: MANUELA CANTU [facility] Information #: 1 Payer: [employer]ITY PLAN Payer Identifier: JAZZMINE Member Number: [id number] Group Number: [id number] Subscriber Identifier: [id number] Relationship to Subscriber: self Coverage Type: Commercial Indemnity Coverage Verification Date: Telecom: Address:
--- NOTE | 2025-06-27 12:00 | A.OFFPC_ITS ---
Vital Signs 06/27/25 12:04 Height 5 ft 7 in Weight 156 lb 4 oz BMI 24.5 BP 110/67 Blood Pressure Location Rt brachial Position Sitting Respiration 16 Pulse 69 Pulse Source Pulse Oximeter Temp 98.0 F Temp Source Oral Pulse Oximetry (%) 99 Oxygen Delivery Method Room Air Intake Visit Reasons: Med review Intake Note: patient here for med review Children'S Attendant Required: No Is last menstrual period known: No Post menopausal: No Patient : No Allergies No Known Allergies Allergy (Verified 06/27/25 12:03) Medication List - Last Reconciled 06/27/25 by PIERCE Mays anastrozole 1 mg PO DAILY atorvastatin 20 mg PO DAILY calcium carb,lactat-vitamin D3 200 mg-6.25 mcg (250 unit) tabs PO cyclobenzaprine 5 - 10 mg (1 - 2 x 5 mg) PO .every 8 hours PRN fluoxetine 40 mg PO DAILY folic acid 10 mg PO DAILY lamotrigine ER (Lamictal XR) 600 mg PO BEDTIME multivitamin 1 tab PO DAILY zoledronic acid 4 mg IV .every 6 months Tobacco use date assessed: 06/27/25 Dental Screening Dental Screen Date: 06/27/25 Did you have a dental visit in the last 12 months?: Yes Did you have a dental problem in the last 6 months where you did not have access to dental care?: No Was dental information given to patient?: Patient has dentist HPI HPI Comments History of Present Illness Details This is a 44-year-old female with a past medical history of breast cancer, neutropenia, TIA, alcoholism in remission, focal and partial seizures and anxiety with depression presenting for a physical exam. She was diagnosed with breast cancer in 04/02/2022. She is in remission. She is followed by Dr. Childs. She was seen recently, and they also discussed elevated liver enzymes which we had messaged about over the portal. She denies abdominal pain, weight loss, anorexia, nausea, vomiting or jaundice. Liver enzymes normalized. U/S showed gallstones, gallbladder polyp. Seen by [facility] general surgery and instructed to follow up if she develops symptoms. Dr. Resendez is her neurologist. No recent seizures. She is on lamotrigine. Thyroid nodule-Dr. Radha Harley. Two nondiagnostic biopsies. They continue to monitor. Next ultrasound is next month. She has essential tremor of her upper extremities. She had an MRI of the brain for evaluation of symptoms, and this was normal. She has a telehealth therapist in [place] who is great (Janis Contreras). She is on fluoxetine 40 mg for anxiety and depression which is working well. Patient's , Justin, has metastatic prostate cancer. Currently doing well on his medications Patient has a teenage daughter. Patient diagnosed with borderline personality disorder. She has done a lot of work herself over the years. She has a history of alcoholism and has been sober for years. Hyperlipidemia is treated with [address] Dr. 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 She is up to date. She was referred to Dr. Hernandez for post menopausal bleeding and will have a D&C within a few weeks. She broke her right wrist in April. Following with orthopedics. Endorses steady improvement. ROS: Constitutional: No unexplained weight loss, fever, chills, fatigue or night sweats. Respiratory: No shortness of breath, cough or sputum production. Cardiovascular: No chest pain Neurologic: No headache, dizziness, syncope Physical exam: Constitutional: Alert, in no distress. Neck: Supple, Full range of motion. No lymphadenopathy. Respiratory: Clear to auscultation. Cardiovascular: S1 S2 regular. No murmurs. Neurologic: No focal neurological deficits. Extremities: Warm and well perfused. No clubbing, cyanosis or edema. Psychiatric: Normal mood and affect [facility] Medical History (Updated 06/27/25 @ 22:16 by PIERCE Mays) Borderline personality disorder Gallbladder polyp Routine physical examination Elevated liver enzymes Essential tremor Thyroid nodule Depression with anxiety Pure hypercholesterolemia Breast cancer Surgical History (Updated 02/11/25 @ 13:33 by Steve Hurst MD) Cholelithiases No pertinent past surgical history Family History (Updated 12/17/24 @ 16:12 by Anh Haynes CMA) Father No problems noted. Mother No problems noted. 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 1. Little interest or pleasure in doing things: not at all 2. Feeling down, depressed, or hopeless: not at all 3. Trouble falling or staying asleep, or sleeping too much: not at all 4. Feeling tired or having little energy: not at all 5. Poor appetite or overeating: not at all 6. Feeling bad about yourself - or that you are a failure or have let yourself or your family down: not at all 7. Trouble concentrating on things, such as reading the newspaper or watching television: not at all 8. Moving or speaking so slowly that other people could have noticed. Or the opposite - being so fidgety or restless that you have been moving around a lot more than usual: not at all 9. Thoughts that you would be better off or of hurting yourself in some way: not at all Total score: 0 Source: Developed by Drs. Dipesh Woodard, Jocelyne Davalos, Rick Overton and colleagues, with an educational chris from [employer]. Thrive Questionnaire Date Thrive assessed: 12/10/24 I am a: Patient What is your living situation today?: I have a steady place to live Within the past 12 months, did the food you bought not last and you didn't have the money to get more?: Never true Within the past 12 months, did you worry whether your food would run out before you got money to buy more?: Never true Do you have trouble paying for medicines?: No Do you have trouble getting transportation to medical appointments?: No Do you have trouble paying your heating and electricity bill?: No Do you have trouble taking care of your child, family member or friend?: No Do you have trouble with day-to-day activities such as bathing, preparing meals, shopping, managing finances, etc.?: No Are you currently unemployed and looking for a job?: No Are you interested in more education?: No Please select the resources that you would like help with: None Currently or been in a relationship where the following occur: No concerns reported THRIVE Score: 0 AUDIT C Alcohol Use Questionnaire (AUDIT-C) 3. How often do you have six or more drinks on one occasion?: Never Total Score: 0 FERNANDA-7 AMB Questionnaire FERNANDA-7 Date FERNANDA - 7 assessed: 03/16/22 Source: Developed by Drs. Dipesh Woodard, Jocelyne Davalos, Rick Overton and colleagues, with an educational chris from [employer]. Physical exam (Primary Care) Vital Signs: Last Vital Signs Temp 98.0 F 06/27/25 12:04 Pulse 69 06/27/25 12:04 Resp 16 06/27/25 12:04 BP 110/67 06/27/25 12:04 Pulse Ox 99 06/27/25 12:04 Oxygen Delivery Method Room Air 06/27/25 12:04 BMI result Body Mass Index 24.5 Tobacco/Smoking Status: Tobacco use Status Tobacco use date assessed 06/27/25 06/27/25 12:07 Patient Tobacco Use Status Never used Tobacco 06/27/25 12:02 e-Cigarette/Vaping Use Never Used 06/27/25 12:02 PHQ-9: PHQ-9 Score PHQ-9: Total score 0 06/27/25 12:29 Thrive Assessment: Date of Thrive Assessment Date Thrive assessed 12/10/24 06/27/25 12:02 Currently or been in a relationship where the following occur: No concerns reported Coding Level of Care Code Est Pt Level 4 (17701) Complex EM visit Add On G2211 Diagnoses Elevated liver enzymes R74.8 Thyroid nodule E04.1 Depression with anxiety F41.8 Pure hypercholesterolemia E78.00 Breast cancer C50.919 Assessment & Plan Assessment & Plan (1) Elevated liver enzymes: Code(s): R74.8 - Abnormal levels of other serum enzymes Category: Medical Plan: Normalized. Seen by general surgery for u/s findings. Monitor for symptoms. (2) Thyroid nodule: Code(s): E04.1 - Nontoxic single thyroid nodule Category: Medical Plan: Followed by endocrinology. Continued surveillance. (3) Depression with anxiety: Code(s): F41.8 - Other specified anxiety disorders Category: Medical Plan: Stable. Continue therapy and SSRI. (4) Pure hypercholesterolemia: Code(s): E78.00 - Pure hypercholesterolemia, unspecified Category: Medical Plan: Continue atorvastatin. Recommended low-cholesterol diet. (5) Breast cancer: Code(s): C50.919 - Malignant neoplasm of unspecified site of unspecified female breast Category: Medical Plan: Continue management with surveillance per specialists. Plan Follow up in 6 months for a physical exam. Medications: Refilled fluoxetine 40 mg PO DAILY 90 caps 3RF
[2025-06-27 12:04] VITALS: BP 110/67; PULSE 69; RESP 16; TEMP 36.7; O2SAT 99; BMI 24.5
--- OUTSIDE RECORDS SUMMARY | 2025-06-27 12:57 | XMS_ITS | Patient Health Record ---
[facility] Organization [facility] Address [address] [place] [address] Care Team Providers Care Fisher Weir Name Role Phone BETTIE RUIZ PA-C Primary Care Provider BLANCA Tomlinson Unavailable [phone] Allergies No Known Allergies Reason For Referral No Information Medications Medication SIG (Take, Route, Frequency, Duration) Notes Start Date End Date Status Folic Acid 1 MG 1 tablet Orally Once a day Active Multivitamin Active lamoTRIgine ER 300 MG (Prior Auth#:[id number]) Oral; Duration: 90 Active Atorvastatin Calcium 20 MG TAKE 1 TABLET BY MOUTH DAILY AFTER SUPPER Oral; Duration: 90 Days Active Fluoxetine 30mg Active Arimidex 1 MG 1 tablet Orally Once a day; Duration: 30 day(s) Active Social History Tobacco Use: [...] Risk Notes Problem Excessive and frequent menstruation (970536315) Excessive and frequent menstruation with regular cycle (N92.0) Active confirmed Problem Postmenopausal bleeding (58319536) Postmenopausal bleeding (N95.0) Active confirmed Problem Malignant neoplasm of lower-inner quadrant of female breast (138813644) Malignant neoplasm of lower-inner quadrant of left female breast (C50.312) Active confirmed Problem Anxiety disorder (250440986) Anxiety disorder, unspecified (F41.9) Active confirmed Problem Hypoactive sexual desire disorder (693815057) 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) Active confirmed Problem Epilepsy (67386283) Epilepsy, unspecified, not intractable, without status epilepticus (G40.909) Active confirmed Problem Irregular Menstruation (11791045) Other specified irregular menstruation (N92.5) Active confirmed Problem Abnormal uterine bleeding (24484306603146) Abnormal uterine and vaginal bleeding, unspecified (N93.9) Active confirmed Problem Personal history of primary malignant neoplasm of breast (642452041) Personal history of malignant neoplasm of breast (Z85.3) Active confirmed Problem COVID-19 (647674017) COVID-19 (U07.1) Active confirmed Vital Signs Temperature 97.5 degrees Fahrenheit 02/11/2025 Blood pressure diastolic 72 mm Hg 02/11/2025 Height 67 in 02/11/2025 Blood pressure systolic 118 mm Hg 02/11/2025 Weight 156 lbs 02/11/2025 BMI 24.43 kg/m2 02/11/2025 Encounters Encounter Location Date Provider Diagnosis [facility] [place] [address] [address] 02/11/2025 BLANCA PRITCHARD Encounter for gynecological examination (general) (routine) without abnormal findings Z01.419 ; Encounter for screening mammogram for malignant neoplasm of breast Z12.31 and Personal history of malignant neoplasm of breast Z85.3 [facility] [place] [address] [address] 03/04/2025 BLANCA PRITCHARD Assessments Encounter Date Diagnosis (ICD Code) Assessment [...] breast (ICD-10 - Z12.31) Mammograms ordered by [facility] 02/11/2025 Personal history of malignant [...] 3D 2023 Next Appt Details Provider Name:BLANCA GIBSON Tyron, 02/17/2026 08:00:00 AM, [address], [address], [place], [address], Insurance Providers Payer Name Payer Address Payer Phone Subscriber Number Group Number Insured Name Patient Relationship to Insured Coverage Start Date Coverage End Date [facility] [address] [place] [address] [phone] [id number] MANUELA BARTON Self - patient is the [...] grade 1 invasive ductal carcinoma, +axillary mets; ER/MT+, Her2/mateus negative 10/2022 all lymphnodes removed ( ) bypass 01/03 23 Bilateral salpingo-oophorectomy 09/2023 Hospitalization History Reason Date(Month/Year) childbirth as a child - 3 episodes of m igraines that caused her to temporarily lose sight, and lose consciousness
--- OUTSIDE RECORDS SUMMARY | 2025-06-27 12:57 | XMS_ITS | Clinical Summary ---
Author Organization [facility] Address [address] [place] [address] Phone Care Team Providers Care Logging Assistant Name Role Phone Nolvia Mcelroy MD Primary Care Provider Unavailable Allergies No known active allergies Medications lamoTRIgine (LAMICTAL XR) 300 mg TR24 Take 600 mg by mouth every evening. Active escitalopram oxalate (LEXAPRO) 10 MG tablet Take 10 mg by mouth every evening. Active FOLIC ACID ORAL Take by mouth. Active meclizine (ANTIVERT) 25 mg tablet Take 1 tablet (25 mg total) by mouth 3 (three) times a day as needed. 10 tablet 03/09/2022 Active atorvastatin (LIPITOR) 40 MG tablet Take 1 tablet (40 mg total) by mouth once for 1 dose. 30 tablet 03/09/2022 Active aspirin 81 mg chewable tablet Take 1 tablet (81 mg total) by mouth daily. 30 tablet 03/10/2022 Active Active Problems Problem Noted Date Diagnosed Date TIA (transient ischemic attack) 03/30/2022 Ataxia 03/08/2022 Assessment & Plan (03/08/2022 1:22 PM EDT): Current NIHSS score is 0 with only [...] (i.e. secondary to process such as BPPV, M ni re's, or vestibular neuritis). CT of the head [...] allowed to have a cardiac prudent diet Focal seizures Assessment & Plan (03/08/2022 1:16 PM EDT): No tonic-clonic activity. Mental status is intact without confusion. Continue lamotrigine XR as prescribed (patient will have brought in from home). EEG as outlined. Family History Medical History Relation Comments Stroke Neg Hx Social History Tobacco Use Types Packs/Day Years Used Date Smoking Tobacco: Never Smokeless Tobacco: Never Alcohol Use Standard Drinks/Week Comments Yes 0 (1 standard drink = 0.6 oz pur e alcohol) occas, socially Education Answer Date Recorded Are you interested in more education? Not on kimo e 03/12/2023 Are you concerned about learning? Not on file 03/12/2023 No 03/12/2023 No 03/12/2023 Digital Access Answer Date Recorded No 04/09/2023 No 04/09/2023 No 04/09/2023 Reliable internet access at home? Not on file 04/09/2023 Device with a working camera? Not on file Comments Unknown Sex and Gender Information Value Date Recorded Sex Assigned at Female 03/08/2022 8:14 AM EDT Legal Sex Female 6:43 PM EST Gender Identity Female 03/08/2022 8:14 AM EDT Sexual Orientation Straight 03/09/2022 8: 51 PM EDT Last Filed Vital Signs Vital Sign Reading Time Taken Comments Blood Pressure 108/70 03/30/2022 8:01 AM EDT Pulse 74 03/30/2022 8:01 AM EDT Temperature 37 C (98.6 F) 03/09/2022 4:29 PM EDT Respiratory Rate 16 03/09/2022 4:29 PM EDT Oxygen Saturation 99% 03/30/2022 8:01 AM EDT Inhaled Oxygen Concentration - - Weight 65.3 kg (144 lb) 03/30/2022 8:01 AM EDT Height 167.6 cm (5' 5.98 ) 03/30/2022 8:01 AM ED T Body Mass Index 23.25 03/30/2022 8:01 AM EDT Plan of Treatment Health Maintenance Due Date Last Done Comments DEPRESSION SCREENING 1992 HEPATITIS C SCREENING 1998 HIV ONE-TIME SCREENING (18-6 5 YEARS) 1998 PAP SMEAR 2001 MAMMOGRAM 2020 COVID-19 VACCINE ( - 2023-2 5 season) 2024 09/30/2021, 12/18/2020, 11/20/2020 Adult Td,Tdap Booster 02/10/2032 02/09/2022 SMOKING STATUS SCREENING (On ce After 26 Yrs) Completed 03/30/2022 PNEUMOCOCCAL VACCINES (0-49 years) Aged Out 11/10/2022, 08/23/2022 No longer eligible based on patient's age to complete this topic HEPATITIS A VACCINES Aged Out No long er eligible based on patient's age to complete this topic HIB VACCINES Aged Out No longer eligi ble based on patient's age to complete this topic MENINGOCOCCAL VACCINES (ACWY) Aged Out No longer eligible based on patient's age to complete this topic MENINGOCOCCAL VACCINES (B) Aged Out N o longer eligible based on patient's age to complete this topic Medical Devices Not on file Insurance [place] [address] [place], [place] [id number] [address] [place] [address] [place] [address] [place] [address] [place] [address] [place] [address] HMO POS HMO POS HMO POS Advance Directives For more information, please contact: [phone] (9AM - 5PM [facility], Tuesday-Tuesday) * Full Code (Latest Code Status on File) Date Activated Date Inactivated Comments 03/08/2022 3:49 PM Question Answer Comments Code Status Confirmed With: Patient Care Teams Logging Assistant Relationship Specialty Start Date End Date Nolvia Mcelroy MD PCP - General Internal Medicine 01/11/23 Additional Source Comments The information contained in this document represents components of the legal health record. It is not the complete legal health record.[facility]
--- OUTSIDE RECORDS SUMMARY | 2025-06-27 12:58 | XMS_ITS | Patient Health Record ---
Author Organization [facility] Address [address] [place] [address] Care Team Providers Care Greenhouse Manager Name Role Phone Tong NOWAK, [place] Primary Care Provider UnaPurvi Houser Unavailable [phone] Reason For Referral No Information Medications Medication SIG (Take, Route, Frequency, Duration) Notes Start Date End Date Status lamoTRIgine 200 MG Oral; Duration: 90 Active Escitalopram Oxalate 10 MG Oral; Duration: 90 Active Folic Acid 400 MCG Oral; Duration: 90 Active Amoxicillin 500 MG Oral; Duration: 10 Not-Taking Social History Tobacco Use: Social History Observation Description Date Details (start date - stop date) Never Smoker NA - NA Tobacco Use/Smoking Question Answer Notes Are you a: nonsmoker Additional Findings: Tobacco Non-User Current no n-smoker Alcohol Screen Question Answer Notes Did you have a drink contain ing alcohol in the past year? Yes How often did you have a dri nk containing alcohol in the past year? 2 to 3 times a week (3 points) Points 3 Interpretation Positive Problems No Known Problems Plan Of Treatment Pending Test Test Name Order Date [id number] Destruction, 1-14 04/26/2016 Insurance Providers Payer Name Payer Address Payer Phone Subscriber Number Group Number Insured Name Patient Relationship to Insured Coverage Start Date Coverage End Date [employer] [address] [place] [id number] [id number] Jenn Moralez Self - patient is the insured Medical (General) History Medical History History ICD Code Epilepsy Warts
--- OUTSIDE RECORDS SUMMARY | 2025-06-27 12:58 | XMS_ITS | Clinical Summary ---
Author Organization [facility], Address [address] [place] [address] Phone Care Team Providers Care Fiberglass Laminator Name Role Phone Jenn De La Cruz MD Primary Care Provider [phone] Allergies No known active allergies Medications escitalopram [...] 89 04/30/2022 9:50 AM EDT Temperature 36.2 C (97.1 F) 04/30/2022 9:50 AM EDT Respiratory Rate 16 04/30/2022 9:50 AM EDT Oxygen Saturation 98% 04/30/2022 9:50 AM EDT Inhaled Oxygen Concentration - - Weight 65.8 kg (145 lb) 04/30/2022 9:50 AM EDT Height 170.2 cm (5' 7 ) 04/30/2022 9:50 AM EDT Body Mass Index 22.71 04/30/2022 9:50 AM EDT Plan of Treatment Health Maintenance Due Date Last Done Comments Hepatitis B Vaccine (1 of 3 - 19+ 3-dose series) 12/26 Pneumococcal Vaccine: Peds ( 0 to 5 Years) and At-Risk Patients (6 to 49 Years) (1 of 2 - PCV) 1999 Influenza Vaccine (#1) 2025 Insurance [facility] Care Teams Fiberglass Laminator Relationship Specialty Start Date End Date Jenn De La Cruz MD [address] [place] [id number] PCP - General Internal Medicine 04/28/22
--- OUTSIDE RECORDS SUMMARY | 2025-06-27 12:58 | XMS_ITS | Continuity of Care Document ---
Author Organization [facility] [address] [place] [address] Phone [phone] Problems Active Problems Provider Date Multinodular goiter PIERCE Perales Onset: Anxiety disorder PIERCE Perales Onset: 10/19 Carcinoma of breast PIERCE Perales Onset: Hyperlipidemia PIERCE Perales Onset: 2022 Seizure disorder PIERCE Perales Onset: 10/19 Transient cerebral ischemia PIERCE Perales O nset: 10/19/2023 Social History Type Date Description Comments Sex Female Sex Unknown Tobacco Use Start: Unknown Never Smoked Cigarettes Smoking Status Reviewed: 10/19/23 Never Smoked Cigaret uma ETOH Use Has consumed alcohol in the past Allergies and adverse reactions Active Allergies Criticality Reaction Severity Comments Date Emend Injection Unable to assess criticality Chest Tightness 10/19/2023 Medications Active Medications SIG Qnty Indications Ordering Provider Date Fluoxetine [id number] Tablets Take 3 Tablet By Mouth Daily Elise Ledezma M.D. 01/19/2024 Lamotrigine AK967ch Tablets ER 24HR Take 2 Tablets By Mouth Every Day For 90 Days Lisa Resendez MD Atorvastatin [id number] Tablets Take 1 Tablet By Mouth Daily After SuppNolvia Sullivan M.D. Folic Kxbq1yb Tablets Take 1 Tablet By Mouth Every Day Lisa Resendez MD [id number] Tablets Take 1 Tablet By Mouth Every [...] Date Location Provider Dx Diagnosis Office Visit 01/17/2025 8:45a Main Office PIERCE Perales E04.2 Nontoxic mult inodular goiter Assessments Date Code Description Provider 01/17/2025 E04.2 Nontoxic multinodular goiter PIERCE Perales Plan of Treatment Future Appointment(s):* 01/17/2026 8:00 am - Purvi Roa CNP at Main Office 07/18/2024 - PIERCE Perales* E04.2 Nontoxic multinodular goiter* New Xrays: * Ultrasound Thyroid, Scheduled: 08/07/24 Functional Status Description No Information Available Mental Status Description No Information Available Referrals Description No Information Available
== END 2025-06-27 12:55 | disposition home or self-care (01) ==
LOC: HO.HMCFM 11:54
PROVIDERS: PCP Physician Assistant Medical; Visit Provider Physician Assistant Medical
DX: R74.8 Abnormal levels of other serum enzymes (principal); E04.1 Nontoxic single thyroid nodule; F41.8 Other specified anxiety disorders; E78.00 Pure hypercholesterolemia, unspecified; C50.919 Malignant neoplasm of unspecified site of unspecified female breast

== ENCOUNTER 2025-08-01 15:37 | Outpatient (AMB) | payer OTHER, SELFPAY ==
--- NOTE | 2025-08-01 15:56 | A.OFFPSYCH_ITS ---
Intake Intake Visit Reasons: consultation Tube Heater Required: No Allergies No Known Allergies Allergy (Verified 06/27/25 12:03) Medication List - Last Reconciled 08/01/25 by Page Talley APRN anastrozole 1 mg PO DAILY atorvastatin 20 mg PO DAILY calcium carb,lactat-vitamin D3 200 mg-6.25 mcg (250 unit) tabs PO cyclobenzaprine 5 - 10 mg (1 - 2 x 5 mg) PO .every 8 hours PRN fluoxetine 40 mg PO DAILY folic acid 10 mg PO DAILY lamotrigine ER (Lamictal XR) 600 mg PO BEDTIME multivitamin 1 tab PO DAILY zoledronic acid 4 mg IV .every 6 months HPI- Psychiatric Chief Complaint: consultation HPI Narrative: Pt is referred by her PCP for evaluation of attention,focus and memory problems. She reported difficulties with concentration and focus.She reports that in her work with therapist, one of the things that she is noticing is that I'm having issues in life with focus because of the constant brain noise. Pt reports its always been there but menopause has increased it. Pt reports having trouble focusing on things outside of what's in my head - difficulty remembering conversations and faces, simply because I'm not focused on them the first time. She does work on mindfulness with her therapist, which has helped but the issue doesn't seem to be going away. Pt has concerns about wellbutrin due to history of seizures. Discussed something like strattera for ADHD, but pt is currently prescribed fluoxetine. Stimulants are a risk given seizure disorder and history of likely TIA PHQ9=4 and GAD7=5. Pt reports ever since she had breast cancer and decided to have ovaries in 2out she has has menopause like symptoms including brain fog. She has trouble concentrating and focusing on things including watching TV. She reports the most distressing symptom is not easily recognizing people she knows; it takes her a while to recall their names. Dr. Resendez is her neurologist. No recent seizures. She is on lamotrigine. Past Psychiatric History: lifelong anxiety; tx outpatient; therapist currently: Janis Quinones. Subjective Subjective Subjective Medication Compliance: Yes Side effects from medications: No Review of Systems Medical Review of Systems: unchanged Mental Status Exam Mental Status Exam Patient Appearance: Well Grooomed and Appropriate Patient Orientation: Person, Place, Time and Situation Level of Consciousness: Awake, Appropriate, Restless and Alert Patient Behavior: Appropriate, Cooperative, Anxious and Good Eye Contact Mood Description: Appropriate and Anxious Affect Description: Appropriate and Anxious Patient Cognition Impaired: No Ability to Follow Directions: Good Speech Pattern: Clear, Appropriate and Spontaneous Speech Memory Description: Remote Impaired, Immediate Impaired, Episodic Impaired and Recent Impaired Hallucinations: None Delusions: Not Present Thought Process: Intact and Goal Oriented Thought Content: positive for Intact and positive for Goal Oriented Judgement: Good Assessment and Plan Assessment & Plan (1) FERNANDA (generalized anxiety disorder): Status: Acute Code(s): F41.1 - Generalized anxiety disorder (2) Attention and concentration deficit: Status: Acute Code(s): R41.840 - Attention and concentration deficit (3) Borderline personality disorder: Status: Acute Code(s): F60.3 - Borderline personality disorder Plan continue prozac 40mg daily consider vyvanse or low dose stimulant collateral from neurology re: stability of seizure do labs per below Medications: Refilled fluoxetine 40 mg PO DAILY 90 caps 3RF Orders: Orders Vitamin B12 and Folate 08/06/25 R41.840 - Attention and concentration deficit Counseling and coordination of Care Pt. Self Management counseling: Med illness tx adherence, Mod caffeine/ETOH intake, Nutrition education and improvement, Sleep hygiene and General coping skills Medication management counseling: Effectiveness, Side effects, Dosing range, Duration, Drug interaction and Adherence Diagnosis and Prognosis Counseling: Accuracy of diagnosis, Prognosis over time, Impact of diagnosis on life functions, Impact of family relationship, Problematic behaviors secondary to diagnosis and Adequacy of current interventions Details: I spent 75 minutes reviewing the record, seeing the patient and documenting in the medical record. Counseling provided to the patient/caregiver as outlined below. Addressed patient/caregiver concerns regarding current medication regime including effective adherence. Addressed patient/caregiver concerns regarding diagnosis and prognosis including accuracy of diagnosis, prognosis over time, impact of diagnosis. Addressed patient/caregiver concerns regarding impact of recent stressors. [facility] Medical History (Updated 08/12/25 @ 11:35 by Page Talley APRN) Borderline personality disorder Gallbladder polyp Routine physical examination Elevated liver enzymes Essential tremor Thyroid nodule Depression with anxiety Pure hypercholesterolemia Breast cancer Surgical History (Updated 02/11/25 @ 13:33 by Steve Hurst MD) Cholelithiases No pertinent past surgical history Family History (Updated 12/17/24 @ 16:12 by Anh Haynes CMA) Father No problems noted. Mother No problems noted. 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
--- OUTSIDE RECORDS SUMMARY | 2025-08-01 16:54 | XMS_ITS | Encounter Summary ---
Author Organization [facility] Address [facility] [employer] [facility] [address] [place] [address] Phone Care Team Providers Care Stock Room Manager Name Role Phone Isabel Jiménez MD Primary Care Provid er Nolvia Mcelroy MD Primary Care Provider Unavailable Encounter Details Date Type Department Care Team (Late st Contact Info) Description 03/08/2022 Procedure Pass [facility], Ct Scan - [facility] [address] [place] [address] Social History Tobacco Use Types Packs/Day Years Used Date Smoking Tobacco: Never Smokeless Tobacco: Never Alcohol Use Standard Drinks/Week Comments Yes 0 (1 standard drink = 0.6 oz pur e alcohol) occas, socially Comments Unknown Sex and Gender Information Value Date Recorded Sex Assigned at Female 03/08/2022 8:14 AM EDT Legal Sex Female 6:43 PM EST Gender Identity Female 03/08/2022 8:14 AM EDT Sexual Orientation Straight 03/09/2022 8: 51 PM EDT documented as of this encounter Functional Status * Calculated C-SSRS Risk Score (Lifetime/Recent) Answer Date of Assessment Author No Risk Indicated 03/08/2022 8:10 AM EDT Mary Irwin RN * [place] Suicide Severity Rating Scale (Screener/Recent Self-Report) Question Answer Date of Assessment Author 1. Wish to be (Past 1 Month) No 022 8:10 AM EDT Mary Irwin RN 2. Non-Specific Active Suici yun Thoughts (Past 1 Month) No 03/08/2022 8:10 AM EDT Mary Irwin RN 6. Suicidal Behavior (Lifetime) No 8:10 AM EDT Mary Irwin RN documented as of this encounter Plan of Treatment Not on file documented as of this encounter Visit Diagnoses Not on filedocumented in this encounter Additional Health Concerns Infection Onset Date Last Indicated Resolved Time CoV-Risk Comment:Neg covid here for seizure activity 03/08/2022 03/08/2022 03/09/2022 7:19 AM E DT documented as of this encounter Care Teams Stock Room Manager Relationship Specialty Start Date End Date Isabel Jiménez MD [address] [place] [address] PCP - General Internal Medicine 03/08/22 01/10/23 Nolvia Mcelroy MD PCP - General Internal Medicine 01/11/23 documented as of this encounter Additional Source Comments The information contained in this document represents components of the legal health record. It is not the complete legal health record.[facility]
--- OUTSIDE RECORDS SUMMARY | 2025-08-01 16:54 | XMS_ITS | Clinical Summary ---
Author Organization [facility] Address [address] [employer] [facility] [address] [place] [address] Phone Care Team Providers Care Block Making Machine Operator Name Role Phone Nolvia Mcelroy MD Primary [...] HEPATITIS C SCREENING 1998 HIV ONE-TIME SCREENING (18-65 YEARS) 1998 PAP SMEAR 2001 MAMMOGRAM 2020 INFLUENZA VACCINE (#1) 2025 , 08/20/2021, 08/09/2020, Additional history exists COVID-19 VACCINE ( season) 2025 09/30/2021, 12/18/2020, 11/20/2020 Adult Td,Tdap Booster 02/10/2032 02/09/2022 SMOKING STATUS SCREENING (Once After 26 Yrs) Completed 03/30/2022 PNEUMOCOCCAL VACCINES (0-49 years) Aged Out 11/10/2022, 08/23/2022 No longer eligibl e based on patient's age to complete this [...] topic Medical Devices Not on file Insurance [facility] [place]MO [place] [address] [place], [place] [id number] [address] [place] [address] [place] [address] [place] [address] [address] [place] [address] [place] [address] [place] [address] [place] [address] [place] [address] [place] [address] [place] [address] HMO POS HMO POS Advance Directives For more information, please contact: [phone] (9AM - 5PM Martha/[facility], Tuesday-Tuesday) * Full Code (Latest Code Status on File) Date Activated Date Inactivated Comments 03/08/2022 3:49 PM Question Answer Comments Code Status Confirmed With: Patient Care Teams Block Making Machine Operator Relationship Specialty Start Date End Date Nolvia Mcelroy MD PCP - General Internal Medicine 01/11/23 Additional Source Comments The information contained in this document represents components of the legal health record. It is not the complete legal health record.[facility]
--- OUTSIDE RECORDS SUMMARY | 2025-08-01 16:54 | XMS_ITS | Clinical Summary ---
Author Organization [facility], Address [address] [place] [address] Phone Care Team Providers Care Primary School Teacher Name Role Phone Jenn De La Cruz MD Primary Care Provider [phone] Allergies No known active allergies Medications escitalopram [...] PCV) 1999 Influenza Vaccine (#1) 2025 Insurance [employer] Care Teams Primary School Teacher Relationship Specialty Start Date End Date Jenn De La Cruz MD [address] [place] [address] PCP - General Internal Medicine 04/28/22
--- OUTSIDE RECORDS SUMMARY | 2025-08-01 16:54 | XMS_ITS | Encounter Summary ---
Author Organization [facility] Address [facility] [employer] [facility] [address] [place] [address] Phone Care Team Providers Care Cushion Filler Name Role Phone Isabel Jiménez MD Primary Care Provid er Nolvia Mcelroy MD Primary Care Provider Unavailable Encounter Details Date Type Department Care Team (Late st Contact Info) Description 03/08/2022 Procedure Pass [facility], [address] [address] Social History Tobacco Use Types Packs/Day Years [...] 8:10 AM EDT Mary Irwin RN * [place] Suicide Severity Rating Scale (Screener/Recent Self-Report) Question [...] documented as of this encounter Care Teams Cushion Filler Relationship Specialty Start Date End Date Isabel Jiménez MD [address] [place] [address] PCP - General Internal Medicine 03/08/22 01/10/23 Nolvia Mcelroy MD PCP - General Internal Medicine 01/11/23 documented as of this encounter Additional Source Comments The information contained in this document represents components of the legal health record. It is not the complete legal health record.[facility]
--- OUTSIDE RECORDS SUMMARY | 2025-08-01 16:54 | XMS_ITS | Encounter Summary ---
Author Organization [facility] Address [facility] [employer] [facility] [address] [place] [address] Phone Care Team Providers Care Surgery Nurse Name Role Phone Isabel Jiménez MD Primary Care Provid er Nolvia Mcelroy MD Primary Care Provider Unavailable Encounter Details Date Type Department Care Team (Late st Contact Info) Description 03/08/2022 Procedure Pass [facility], Ct Scan - [facility] [address] [place] [address] Social History Tobacco Use Types Packs/Day Years [...] 8:10 AM EDT Mary Irwin RN * [place] Suicide Severity Rating Scale (Screener/Recent Self-Report) Question [...] documented as of this encounter Care Teams Surgery Nurse Relationship Specialty Start Date End Date Isabel Jiménez MD [address] [place] [address] PCP - General Internal Medicine 03/08/22 01/10/23 Nolvia Mcelroy MD PCP - General Internal Medicine 01/11/23 documented as of this encounter Additional Source Comments The information contained in this document represents components of the legal health record. It is not the complete legal health record.[facility]
--- OUTSIDE RECORDS SUMMARY | 2025-08-01 16:54 | XMS_ITS | Encounter Summary ---
Author Organization [facility] Address [address] [employer] [facility] [address] [place] [address] Phone Care Team Providers Care Port Surveyor Name Role Phone Nolvia Mcelroy MD Primary Care Provider Unavailable Encounter Details Date Type Department Care Team (Late st Contact Info) Description 02/22/2024 Transcribe Orders [facility] [address] [place] [address] Polina Flanagan PA [address] [place] [address] Social History Tobacco Use Types Packs/Day Years [...] PM EDT documented as of this encounter Plan of Treatment Not on file documented as of this encounter Visit Diagnoses Not on filedocumented in this encounter Care Teams Port Surveyor Relationship Specialty Start Date End Date Nolvia Mcelroy MD PCP - General Internal Medicine 01/11/23 documented as of this encounter Additional Source Comments The information contained in this document represents components of the legal health record. It is not the complete legal health record.[facility]
== END 2025-08-01 16:54 | disposition home or self-care (01) ==
LOC: HO.HOP 15:37
PROVIDERS: PCP Physician Assistant Medical; Visit Provider Clinical Nurse Specialist Psychiatric/Mental Health
DX: F41.1 Generalized anxiety disorder (principal); R41.840 Attention and concentration deficit; F60.3 Borderline personality disorder
CPT/HCPCS: 90792

== ENCOUNTER → 2025-08-01 15:37 | Outpatient (BNVA) | payer OTHER, SELFPAY | PROVIDERS: PCP Physician Assistant Medical; Visit Provider Clinical Nurse Specialist Psychiatric/Mental Health | DX: F41.1 Generalized anxiety disorder (principal); F60.3 Borderline personality disorder; R41.840 Attention and concentration deficit | CPT/HCPCS: 90792 ==

== ENCOUNTER 2025-08-06 12:19 | Outpatient (REF) | payer OTHER, SELFPAY ==
--- OUTSIDE RECORDS SUMMARY | 2025-08-06 15:13 | XMS_ITS | Encounter Summary ---
Author Organization [facility] Address [facility] [employer] [facility] [address] [place] [address] Phone Care Team Providers Care Back Up Machine Operator Name Role Phone Isabel Jiménez MD Primary Care Provid er Nolvia Mcelroy MD Primary Care Provider Unavailable Encounter Details Date Type Department Care Team (Late st Contact Info) Description 03/08/2022 Procedure Pass [facility], Ct Scan - [facility] [address] [place] [address] Social History Tobacco Use Types Packs/Day Years [...] 8:10 AM EDT Mary Irwin RN * [place] Suicide Severity Rating Scale (Screener/Recent Self-Report) Question [...] documented as of this encounter Care Teams Back Up Machine Operator Relationship Specialty Start Date End Date Isabel Jiménez MD [address] [place] [address] PCP - General Internal Medicine 03/08/22 01/10/23 Nolvia Mcelroy MD PCP - General Internal Medicine 01/11/23 documented as of this encounter Additional Source Comments The information contained in this document represents components of the legal health record. It is not the complete legal health record.[facility]
--- OUTSIDE RECORDS SUMMARY | 2025-08-06 15:13 | XMS_ITS | Clinical Summary ---
Author Organization [facility], Address [address] [place] [address] Phone Care Team Providers Care Head Of Store Operations Name Role Phone Jenn De La Cruz MD Primary Care Provider [phone] Allergies No known active allergies Medications escitalopram [...] Vaccine (#1) 2025 Insurance [employer] Care Teams Head Of Store Operations Relationship Specialty Start Date End Date Jenn De La Cruz MD [address] [place] [address] PCP - General Internal Medicine 04/28/22
--- OUTSIDE RECORDS SUMMARY | 2025-08-06 15:13 | XMS_ITS | Encounter Summary ---
Author Organization [facility] Address [facility] [employer] [place] [address] [place] [address] Phone Care Team Providers Care Ski Instructor Name Role Phone Isabel Jiménez MD Primary Care Provid er Nolvia Mcelroy MD Primary Care Provider Unavailable Encounter Details Date Type Department Care Team (Late st Contact Info) Description 03/08/2022 Procedure Pass [facility], Ct Scan - [facility] [address] [place] [address] Social History Tobacco Use Types Packs/Day Years [...] 8:10 AM EDT Mary Irwin RN * [place] Suicide Severity Rating Scale (Screener/Recent Self-Report) Question [...] documented as of this encounter Care Teams Ski Instructor Relationship Specialty Start Date End Date Isabel Jiménez MD [address] [place] [address] PCP - General Internal Medicine 03/08/22 01/10/23 Nolvia Mcelroy MD PCP - General Internal Medicine 01/11/23 documented as of this encounter Additional Source Comments The information contained in this document represents components of the legal health record. It is not the complete legal health record.[facility]
--- OUTSIDE RECORDS SUMMARY | 2025-08-06 15:13 | XMS_ITS | Encounter Summary ---
Author Organization [facility] Address [facility] FAD ? IO [facility] [address] [place] [address] Phone Care Team Providers Care Gallery Intern Name Role Phone Isabel Jiménez MD Primary Care Provid er Nolvia Mcelroy MD Primary Care Provider Unavailable Encounter Details Date Type Department Care Team (Late st Contact Info) Description 03/08/2022 Procedure Pass [facility], [address] [address] Social History Tobacco Use Types Packs/Day Years [...] 8:10 AM EDT Mary Irwin RN * [place] Suicide Severity Rating Scale (Screener/Recent Self-Report) Question [...] documented as of this encounter Care Teams Gallery Intern Relationship Specialty Start Date End Date Isabel Jiménez MD [address] [place] [address] PCP - General Internal Medicine 03/08/22 01/10/23 Nolvia Mcelroy MD PCP - General Internal Medicine 01/11/23 documented as of this encounter Additional Source Comments The information contained in this document represents components of the legal health record. It is not the complete legal health record.[facility]
--- OUTSIDE RECORDS SUMMARY | 2025-08-06 15:13 | XMS_ITS | Encounter Summary ---
Author Organization [facility] Address [address] [employer] [facility] [address] [place] [address] Phone Care Team Providers Care Consulting Sme Name Role Phone Nolvia Mcelroy MD Primary Care Provider Unavailable Encounter Details Date Type Department Care Team (Late st Contact Info) Description 02/22/2024 Transcribe Orders [facility] [address] [place] [address] Polina Flanagan PA [address] [place] [address] Social History Tobacco Use Types Packs/Day Years [...] on filedocumented in this encounter Care Teams Consulting Sme Relationship Specialty Start Date End Date Nolvia Mcelroy MD PCP - General Internal Medicine 01/11/23 documented as of this encounter Additional Source Comments The information contained in this document represents components of the legal health record. It is not the complete legal health record.[facility]
--- OUTSIDE RECORDS SUMMARY | 2025-08-06 15:13 | XMS_ITS | Patient Health Record ---
Author Organization [facility] Address [address] [place] [address] Care Team Providers Care Marketing Communications Associate Name Role Phone Tong NOWAK, [place] Primary Care Provider UnaPurvi Houser Unavailable [phone] Reason For Referral No Information Medications Medication [...] Treatment Pending Test Test Name Order Date [id number] Destruction, 1-14 04/26/2016 Insurance Providers Payer Name Payer Address Payer Phone Subscriber Number Group Number Insured Name Patient Relationship to Insured Coverage Start Date Coverage End Date [employer] (Unic[employer]) [address] [place] [id number] Jenn Moralez Self - patient is the insured Medical (General) History Medical History History ICD Code Epilepsy Warts
--- OUTSIDE RECORDS SUMMARY | 2025-08-06 15:13 | XMS_ITS | Clinical Summary ---
Author Organization [facility] Address [address] [employer] [facility] [address] [place] [address] Phone Care Team Providers Care Hearing Health Technician Name Role Phone Nolvia Mcelroy MD Primary [...] topic Medical Devices Not on file Insurance [facility] HMO POS [address] [place], [place] [id number] [address] [address] [place] [address] [place] [address] [place] [address] [place] [address] [place] [address] [place] [address] [place] [address] [place] [address] [place] [address] [place] [address] HMO POS HMO POS Advance Directives For more information, please contact: [phone] (9AM - 5PM Martha/[facility], Tuesday-Tuesday) * Full Code (Latest Code Status on File) Date Activated Date Inactivated Comments 03/08/2022 3:49 PM Question Answer Comments Code Status Confirmed With: Patient Care Teams Hearing Health Technician Relationship Specialty Start Date End Date Nolvia Mcelroy MD PCP - General Internal Medicine 01/11/23 Additional Source Comments The information contained in this document represents components of the legal health record. It is not the complete legal health record.[facility]
--- OUTSIDE RECORDS SUMMARY | 2025-08-06 15:13 | XMS_ITS | Patient Health Record ---
Author Organization [facility] Address [address] [place] [address] Care Team Providers Care Electromechanical Assembly Technician Name Role Phone BETTIE RUIZ PA-C Primary Care Provider BLANCA Tomlinson Unavailable [phone] Allergies No Known Allergies Reason For Referral No Information Medications Medication SIG (Take, Route, Frequency, Duration) Notes Start Date End Date Status Folic Acid 1 MG 1 tablet Orally Once a day Active Multivitamin Active lamoTRIgine ER 300 MG (Prior Auth#:[id number]) Oral; Duration: 90 Active Atorvastatin Calcium 20 [...] Risk Notes Problem Excessive and frequent menstruation (448865116) Excessive and frequent menstruation with regular cycle (N92.0) Active confirmed Problem Postmenopausal bleeding (86382648) Postmenopausal bleeding (N95.0) Active confirmed Problem Malignant neoplasm of lower-inner quadrant of female breast (014707861) Malignant neoplasm of lower-inner quadrant of left female breast (C50.312) Active confirmed Problem Anxiety disorder (644183824) Anxiety disorder, unspecified (F41.9) Active confirmed Problem Hypoactive sexual desire disorder (390436299) 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) Active confirmed Problem Epilepsy (01462626) Epilepsy, unspecified, not intractable, without status epilepticus (G40.909) Active confirmed Problem Irregular Menstruation (01184901) Other specified irregular menstruation (N92.5) Active confirmed Problem Abnormal uterine bleeding (58494836924058) Abnormal uterine and vaginal bleeding, unspecified (N93.9) Active confirmed Problem Personal history of primary malignant neoplasm of breast (980770894) Personal history of malignant neoplasm of breast (Z85.3) Active confirmed Problem COVID-19 (275117238) COVID-19 (U07.1) Active confirmed Vital Signs Temperature 97.5 degrees Fahrenheit 02/11/2025 Blood pressure diastolic 72 mm Hg 02/11/2025 Height 67 in 02/11/2025 Blood pressure systolic 118 mm Hg 02/11/2025 Weight 156 lbs 02/11/2025 BMI 24.43 kg/m2 02/11/2025 Encounters Encounter Location Date Provider Diagnosis [facility] [place] [address] [address] 02/11/2025 BLANCA PRITCHARD Encounter for gynecological examination (general) (routine) without abnormal findings Z01.419 ; Encounter for screening mammogram for malignant neoplasm of breast Z12.31 and Personal history of malignant neoplasm of breast Z85.3 [facility] [place] [address] [address] 03/04/2025 BLANCA PRITCHARD Assessments Encounter Date Diagnosis [...] breast (ICD-10 - Z12.31) Mammograms ordered by [facility] 02/11/2025 Personal history of malignant [...] Name:BLANCA GIBSON Tyron, 02/17/2026 08:00:00 AM, [address], [address], [place], [address], Insurance Providers Payer Name Payer Address Payer Phone Subscriber Number Group Number Insured Name Patient Relationship to Insured Coverage Start Date Coverage End Date [facility] [address] [place] [address] [id number] MANUELA BARTON Self - patient is the [...] grade 1 invasive ductal carcinoma, +axillary mets; ER/MS+, Her2/mateus negative 10/2022 all lymphnodes removed ( ) bypass 01/03 23 Bilateral salpingo-oophorectomy 09/2023 Hospitalization History Reason Date(Month/Year) childbirth as a child - 3 episodes of m igraines that caused her to temporarily lose sight, and lose consciousness
[2025-08-06 15:17] LABS: Folate 15.3 ng/mL (> or = 4.0); Vitamin B12 1122 pg/mL (200-900)
== END 2025-08-06 12:20 | disposition home or self-care (01) ==
LOC: HO.LAB 12:19
PROVIDERS: PCP Physician Assistant Medical; Visit Provider Clinical Nurse Specialist Psychiatric/Mental Health
DX: R41.840 Attention and concentration deficit (principal)
CPT/HCPCS: 36415; 82607; 82746

== ENCOUNTER 2025-09-09 09:09 | Outpatient (AMB) | payer OTHER, SELFPAY ==
--- NOTE | 2025-09-09 09:25 | MHC.OFFVISPS ---
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 Required: No Allergies No Known Allergies Allergy (Verified 06/27/25 12:03) Medication List - Last Reconciled 09/09/25 by Page Talley APRN anastrozole 1 mg PO DAILY atorvastatin 20 mg PO DAILY calcium carb,lactat-vitamin D3 200 mg-6.25 mcg (250 unit) tabs PO cyclobenzaprine 5 - 10 mg (1 - 2 x 5 mg) PO .every 8 hours PRN fluoxetine 40 mg PO DAILY folic acid 10 mg PO DAILY lamotrigine ER (Lamictal XR) 600 mg PO BEDTIME multivitamin 1 tab PO DAILY zoledronic acid 4 mg IV .every 6 months HPI- Psychiatric Chief Complaint: f/u consultation HPI Narrative: Pt here for follow up re: inattention, problems with focus and memory. Pt and I discussed options for treatment; reviewed risks of vyvanse vs strattera. Reviewed research from [facility] showing both can be helpful for brain fog due to cancer treatment and menapuse. pt struggling with memeory and brain fog - it inteferes with her functioning at work and socially; It is effecting her sense of self, and self esteem. We agreed to a low dose of vyvanse given potential benefits outweigh risks. Pt has been seizure free since 2017 and is conistent with lamictal for seizure control. Pt and I discussed histroy of TIA and pt was told by cardiology and neurology that it was not a TIA but vertigo. She has had cardiac work up and brain scan which are normal. She has lowere blood pressure 110/70. We agreed to lower prozax ro 30mg daily instead of 40mg to reduce risk of serotonin syndrome. \Pt PHQ9=2 and GAD7=0 Past Psychiatric History: lifelong anxiety; tx outpatient; therapist currently: Janis Quinones. Subjective Subjective Subjective Medication Compliance: Yes Side effects from medications: No Review of Systems Medical Review of Systems: unchanged Mental Status Exam Mental Status Exam Patient Appearance: Well Grooomed and Appropriate Patient Orientation: Person, Place, Time and Situation Level of Consciousness: Awake, Appropriate, Restless and Alert Patient Behavior: Appropriate, Cooperative, Anxious and Good Eye Contact Mood Description: Appropriate and Anxious Affect Description: Appropriate and Anxious Patient Cognition Impaired: No Ability to Follow Directions: Good Speech Pattern: Clear, Appropriate and Spontaneous Speech Memory Description: Remote Impaired, Immediate Impaired, Episodic Impaired and Recent Impaired Hallucinations: None Delusions: Not Present Thought Process: Intact and Goal Oriented Thought Content: positive for Intact and positive for Goal Oriented Judgement: Good Results Reviewed Results Reviewed: review of cardiology notes and tests review of neurology consults review of [facility] and [facility] notes scanned to chart Assessment and Plan Assessment & Plan (1) Depression with anxiety: Status: Acute Code(s): F41.8 - Other specified anxiety disorders (2) FERNANDA (generalized anxiety disorder): Status: Acute Code(s): F41.1 - Generalized anxiety disorder (3) Attention and concentration deficit: Status: Acute Code(s): R41.840 - Attention and concentration deficit Plan lower prozac to 30mg daily trial of vyvanse 10mg daily monitor for side effects including serotonin syndrome (diaphoresis, tremor, confusion, irregular HR) stop vyvanse if seizure occurs and go to ED, call 911 Medications: New fluoxetine 30 mg (3 x 10 mg) PO DAILY 90 caps 2RF lisdexamfetamine (Vyvanse) Partial Fill upon patient request. 10 mg PO QAM 30 caps 0RF R41.840 - Attention and concentration deficit lisdexamfetamine (Vyvanse) Partial Fill upon patient request. 10 mg PO QAM 30 caps 0RF R41.840 - Attention and concentration deficit Counseling and coordination of Care Pt. Self Management counseling: Maintenance-social rhythm, Nutrition education and improvement, Sleep hygiene and General coping skills Medication management counseling: Effectiveness, Side effects, Dosing range, Duration, Drug interaction and Adherence Diagnosis and Prognosis Counseling: Accuracy of diagnosis, Prognosis over time, Impact of diagnosis on life functions, Impact of family relationship, Problematic behaviors secondary to diagnosis and Adequacy of current interventions Details: I spent 40 minutes reviewing the record, seeing the patient and documenting in the medical record. Counseling provided to the patient/caregiver as outlined below. Addressed patient/caregiver concerns regarding current medication regime including effective adherence. Addressed patient/caregiver concerns regarding diagnosis and prognosis including accuracy of diagnosis, prognosis over time, impact of diagnosis. Addressed patient/caregiver concerns regarding impact of recent stressors. ON LICENSE OF [facility] Medical History (Updated 08/12/25 @ 11:35 by Page Talley APRN) Borderline personality disorder Gallbladder polyp Routine physical examination Elevated liver enzymes Essential tremor Thyroid nodule Depression with anxiety Pure hypercholesterolemia Breast cancer Surgical History (Updated 02/11/25 @ 13:33 by Steve Hurst MD) Cholelithiases No pertinent past surgical history Family History (Updated 12/17/24 @ 16:12 by Anh Haynes CMA) Father No problems noted. Mother No problems noted. 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
--- OUTSIDE RECORDS SUMMARY | 2025-09-09 09:59 | XMS_ITS | Clinical Summary ---
Author Organization [facility], Address [address] [place] [address] Phone Care Team Providers Care Building Code Administrator Name Role Phone Jenn De La Cruz MD Primary Care Provider [phone] Allergies No known active allergies Medications escitalopram [...] Vaccine (#1) 2025 Insurance [employer] Care Teams Building Code Administrator Relationship Specialty Start Date End Date Jenn De La Cruz MD [address] [place] [id number] PCP - General Internal Medicine 04/28/22
== END 2025-09-09 14:13 | disposition home or self-care (01) ==
LOC: HO.HOP 09:09
PROVIDERS: PCP Physician Assistant Medical; Visit Provider Clinical Nurse Specialist Psychiatric/Mental Health
DX: F41.8 Other specified anxiety disorders (principal); F41.1 Generalized anxiety disorder; R41.840 Attention and concentration deficit
CPT/HCPCS: 99214

== ENCOUNTER → 2025-09-09 09:09 | Outpatient (BNVA) | payer OTHER, SELFPAY | PROVIDERS: PCP Physician Assistant Medical; Visit Provider Clinical Nurse Specialist Psychiatric/Mental Health | DX: F41.1 Generalized anxiety disorder (principal); R41.840 Attention and concentration deficit | CPT/HCPCS: 99212 ==

== ENCOUNTER 2025-10-07 09:25 | Outpatient (AMB) | payer OTHER, SELFPAY ==
--- NOTE | 2025-10-07 09:36 | MHC.OFFVISPS ---
Intake Intake Visit Reasons: f/u consultation Fighting Vehicle Infantryman Required: No Allergies No Known Allergies Allergy (Verified 06/27/25 12:03) Medication List - Last Reconciled 10/07/25 by Page Talley APRN amoxicillin-pot clavulanate 875-125 mg 1 tab PO Q12H anastrozole 1 mg PO DAILY atorvastatin 20 mg PO DAILY calcium carb,lactat-vitamin D3 200 mg-6.25 mcg (250 unit) tabs PO cyclobenzaprine 5 - 10 mg (1 - 2 x 5 mg) PO .every 8 hours PRN fluoxetine (Prozac) 30 mg (3 x 10 mg) PO DAILY folic acid 10 mg PO DAILY lamotrigine ER (Lamictal XR) 600 mg PO BEDTIME lisdexamfetamine (Vyvanse) 10 mg PO QAM multivitamin 1 tab PO DAILY zoledronic acid 4 mg IV .every 6 months HPI- Psychiatric Chief Complaint: f/u consultation HPI Narrative: Pt here for follow up re: inattention, problems with focus and memory. Pt reports improved focus, attention, recall, planning and initiating tasks more easily. She reports no side effects; no change in eating or sleeping. Pt PHQ9=2 and GAD7=1. She continues with stress of family member's medical issues. She reports therapy is very helpful. Therapist and I exchanged [employer] mail messages to clarify treatment plan with vyvmaría elenae. Past Psychiatric History: lifelong anxiety; tx outpatient; therapist currently: Janis Quinones. Subjective Subjective Medication Compliance: Yes Side effects from medications: No Review of Systems Medical Review of Systems: unchanged Mental Status Exam Mental Status Exam Patient Appearance: Well Grooomed and Appropriate Patient Orientation: Person, Place, Time and Situation Level of Consciousness: Awake, Appropriate and Alert Patient Behavior: Appropriate, Cooperative, Anxious and Good Eye Contact Mood Description: Appropriate and Sad Affect Description: Appropriate and Sad Patient Cognition Impaired: No Ability to Follow Directions: Good Speech Pattern: Clear, Appropriate and Spontaneous Speech Memory Description: Remote Impaired, Immediate Impaired, Episodic Impaired and Recent Impaired Hallucinations: None Delusions: Not Present Thought Process: Intact and Goal Oriented Thought Content: positive for Intact and positive for Goal Oriented Judgement: Good Assessment and Plan Assessment & Plan (1) Depression with anxiety: Status: Acute Code(s): F41.8 - Other specified anxiety disorders (2) FERNANDA (generalized anxiety disorder): Status: Acute Code(s): F41.1 - Generalized anxiety disorder (3) Attention and concentration deficit: Status: Acute Code(s): R41.840 - Attention and concentration deficit Plan continue: prozac to 30mg daily vyvanse 10mg daily monitor for side effects including serotonin syndrome (diaphoresis, tremor, confusion, irregular HR caution in hot weather for overheating and sunburn; may need more frequent air conditioning and more frequent application of sunscreen while taking vyvanse refer back to PCP - discussed with patient I would be happy to see again in future if status changes Medications: Refilled lisdexamfetamine (Vyvanse) Partial Fill upon patient request. 10 mg PO QAM 30 caps 0RF R41.840 - Attention and concentration deficit Counseling and coordination of Care Pt. Self Management counseling: Maintenance-social rhythm, Nutrition education and improvement, Sleep hygiene and General coping skills Medication management counseling: Effectiveness, Side effects, Dosing range, Duration, Drug interaction and Adherence Diagnosis and Prognosis Counseling: Accuracy of diagnosis, Prognosis over time, Impact of diagnosis on life functions, Impact of family relationship, Problematic behaviors secondary to diagnosis and Adequacy of current interventions Details: I spent 30 minutes reviewing the record, seeing the patient and documenting in the medical record. Counseling provided to the patient/caregiver as outlined below. Addressed patient/caregiver concerns regarding current medication regime including effective adherence. Addressed patient/caregiver concerns regarding diagnosis and prognosis including accuracy of diagnosis, prognosis over time, impact of diagnosis. Addressed patient/caregiver concerns regarding impact of recent stressors. [facility] Medical History (Updated 08/12/25 @ 11:35 by Page Talley APRN) Borderline personality disorder Gallbladder polyp Routine physical examination Elevated liver enzymes Essential tremor Thyroid nodule Depression with anxiety Pure hypercholesterolemia Breast cancer Surgical History (Updated 02/11/25 @ 13:33 by Steve Hurst MD) Cholelithiases No pertinent past surgical history Family History (Updated 12/17/24 @ 16:12 by Anh Haynes CMA) Father No problems noted. Mother No problems noted. 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
--- OUTSIDE RECORDS SUMMARY | 2025-10-07 10:50 | XMS_ITS | Patient Health Record ---
Author Organization [facility] Address [address] [place] [address] Care Team Providers Care Horizontal Boring Mill Operator Name Role Phone BETTIE RUIZ PA-C Primary Care Provider BLANCA Tomlinson Unavailable [phone] Allergies No Known Allergies Reason For Referral No Information Medications Medication SIG (Take, Route, Frequency, Duration) Notes Start Date End Date Status Folic Acid 1 MG 1 tablet Orally Once a day Active Multivitamin Active lamoTRIgine ER 300 MG (Prior Auth#:[id number]) Oral; Duration: 90 Active Atorvastatin Calcium 20 [...] Risk Notes Problem Excessive and frequent menstruation (663517306) Excessive and frequent menstruation with regular cycle (N92.0) Active confirmed Problem Postmenopausal bleeding (93050057) Postmenopausal bleeding (N95.0) Active confirmed Problem Malignant neoplasm of lower-inner quadrant of female breast (610026472) Malignant neoplasm of lower-inner quadrant of left female breast (C50.312) Active confirmed Problem Anxiety disorder (296500166) Anxiety disorder, unspecified (F41.9) Active confirmed Problem Hypoactive sexual desire disorder (939834692) 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) Active confirmed Problem Epilepsy (07722946) Epilepsy, unspecified, not intractable, without status epilepticus (G40.909) Active confirmed Problem Irregular Menstruation (43730321) Other specified irregular menstruation (N92.5) Active confirmed Problem Abnormal uterine bleeding (14292895621493) Abnormal uterine and vaginal bleeding, unspecified (N93.9) Active confirmed Problem Personal history of primary malignant neoplasm of breast (481287250) Personal history of malignant neoplasm of breast (Z85.3) Active confirmed Problem COVID-19 (654515849) COVID-19 (U07.1) Active confirmed Vital Signs Temperature 97.5 degrees Fahrenheit 02/11/2025 Blood pressure diastolic 72 mm Hg 02/11/2025 Height 67 in 02/11/2025 Blood pressure systolic 118 mm Hg 02/11/2025 Weight 156 lbs 02/11/2025 BMI 24.43 kg/m2 02/11/2025 Encounters Encounter Location Date Provider Diagnosis [facility] [place] [address] [address] 02/11/2025 BLANCA PRITCHARD Encounter for gynecological examination (general) (routine) without abnormal findings Z01.419 ; Encounter for screening mammogram for malignant neoplasm of breast Z12.31 and Personal history of malignant neoplasm of breast Z85.3 [facility] [place] [address] [address] 03/04/2025 BLANCA PRITCHARD Assessments Encounter Date Diagnosis [...] breast (ICD-10 - Z12.31) Mammograms ordered by [facility] 02/11/2025 Personal history of malignant [...] Name:BLANCA GIBSON Tyron, 02/17/2026 08:00:00 AM, [address], [address], [place], [address], Insurance Providers Payer Name Payer Address Payer Phone Subscriber Number Group Number Insured Name Patient Relationship to Insured Coverage Start Date Coverage End Date [facility] [address] [place] [address] [id number] MANUELA BARTON Self - patient is the [...]
--- OUTSIDE RECORDS SUMMARY | 2025-10-07 10:50 | XMS_ITS | Encounter Summary ---
Author Organization [facility] Address [address] [place] [address] Phone Care Team Providers Care Guidance Adviser Name Role Phone Nolvia Mcelroy MD Primary Care Provider Unavailable Encounter Details Date Type Department Care Team (Late st Contact Info) Description 02/22/2024 Transcribe Orders [facility] [address] [place] [address] Polina Flanagan PA [address] [place] [address] Social History Tobacco Use Types Packs/Day Years [...] on filedocumented in this encounter Care Teams Guidance Adviser Relationship Specialty Start Date End Date Nolvia Mcelroy MD PCP - General Internal Medicine 01/11/23 documented as of this encounter Additional Source Comments The information contained in this document represents components of the legal health record. It is not the complete legal health record.[facility]
--- OUTSIDE RECORDS SUMMARY | 2025-10-07 10:50 | XMS_ITS | Encounter Summary ---
Author Organization [facility] Address Critical access hospital [employer] [place] [address] [place] [address] Phone Care Team Providers Care Lead Warehouse Associate Name Role Phone Isabel Jiménez MD Primary Care Provid er Nolvia Mcelroy MD Primary Care Provider Unavailable Encounter Details Date Type Department Care Team (Late st Contact Info) Description 03/08/2022 Procedure Pass [facility], Ct Scan - [facility] [address] [place] [address] Social History Tobacco Use Types Packs/Day Years [...] 8:10 AM EDT Mary Irwin RN * [place] Suicide Severity Rating Scale (Screener/Recent Self-Report) Question [...] documented as of this encounter Care Teams Lead Warehouse Associate Relationship Specialty Start Date End Date Isabel Jiménez MD [address] [place] [address] PCP - General Internal Medicine 03/08/22 01/10/23 Nolvia Mcelroy MD PCP - General Internal Medicine 01/11/23 documented as of this encounter Additional Source Comments The information contained in this document represents components of the legal health record. It is not the complete legal health record.[facility]
--- OUTSIDE RECORDS SUMMARY | 2025-10-07 10:50 | XMS_ITS | Patient Health Record ---
Author Organization [facility] Address [address] [place] [address] Care Team Providers Care Digital Solution Architect Name Role Phone Tong NOWAK, [place] Primary Care Provider UnaPurvi Houser Unavailable [phone] Reason For Referral No Information Medications Medication [...] Treatment Pending Test Test Name Order Date [id number] Destruction, 1-14 04/26/2016 Insurance Providers Payer Name Payer Address Payer Phone Subscriber Number Group Number Insured Name Patient Relationship to Insured Coverage Start Date Coverage End Date [employer] ([employer]) [address] [place] [address] [id number] Jenn Moralez Self - patient is the insured Medical (General) History Medical History History ICD Code Epilepsy Warts
--- OUTSIDE RECORDS SUMMARY | 2025-10-07 10:50 | XMS_ITS ---
Continuity of Care Document (CCD) Created on: October 07, 2025 Jenn Moralez External Reference #: [id number] : [id number] Sex: Female Author Organization [facility] [address] [place] [address] Phone [phone] Problems Active Problems Provider Date Multinodular goiter [...] SIG Qnty Indications Ordering Provider Date Fluoxetine BFO06rv Tablets Take 3 Tablet By Mouth Daily Elise Ledezma M.D. 01/19/2024 Lamotrigine EM401jl Tablets ER 24HR Take 2 Tablets By Mouth Every Day For 90 Days Lisa Resendez MD Atorvastatin Fhlzmen58kn Tablets Take 1 Tablet By Mouth Daily After SuppNolvia Sullivan M.D. Folic Ttrx5un Tablets Take 1 Tablet By Mouth Every Day Lisa Resendez MD Zalfnlcvmum9vd Tablets Take 1 Tablet By Mouth Every [...]
--- OUTSIDE RECORDS SUMMARY | 2025-10-07 10:50 | XMS_ITS | Encounter Summary ---
Author Organization [facility] Address [facility] [address] [place] [phone] Phone Care Team Providers Care Hop Trainer Name Role Phone Isabel Jiménez MD Primary Care Provid er Nolvia Mcelroy MD Primary Care Provider Unavailable Encounter Details Date Type Department Care Team (Late st Contact Info) Description 03/08/2022 Procedure Pass [facility], [address] [address] Social History Tobacco Use Types Packs/Day Years [...] 8:10 AM EDT Mary Irwin RN * [place] Suicide Severity Rating Scale (Screener/Recent Self-Report) Question [...] documented as of this encounter Care Teams Hop Trainer Relationship Specialty Start Date End Date Isabel Jiménez MD [address] [place] [address] PCP - General Internal Medicine 03/08/22 01/10/23 Nolvia Mcelroy MD PCP - General Internal Medicine 01/11/23 documented as of this encounter Additional Source Comments The information contained in this document represents components of the legal health record. It is not the complete legal health record.[facility]
--- OUTSIDE RECORDS SUMMARY | 2025-10-07 10:50 | XMS_ITS | Clinical Summary ---
Author Organization [facility] Address [email or web address] [facility] [address] [place] [phone] Phone Care Team Providers Care Mail Reader Name Role Phone Nolvia Mcelroy MD Primary [...] on patient's age to complete this topic IPV VACCINES Aged Out No longer eligi ble based on patient's age to complete this topic MENINGOCOCCAL VACCINES (ACWY) Aged Out No longer eligible based on patient's age to complete this topic MENINGOCOCCAL VACCINES (B) Aged Out N o longer eligible based on patient's age to complete this topic Medical Devices Not on file [place] [address] [place] [address] [place] [address] [place] [address] [place] [address] [place] [address] [place] [address] [place] [address] [place] [address] [place] [address] [place] [address] [place] [address] [place] [address] [place] [address] [place] [address] [place] [address] [place] [address] [place] [address] HMO POS Advance Directives For more information, please contact: [phone] (9AM - 5PM [facility], Tuesday-Tuesday) * Full Code (Latest Code Status on File) Date Activated Date Inactivated Comments 03/08/2022 3:49 PM Question Answer Comments Code Status Confirmed With: Patient Care Teams Mail Reader Relationship Specialty Start Date End Date Nolvia Mcelroy MD PCP - General Internal Medicine 01/11/23 Additional Source Comments The information contained in this document represents components of the legal health record. It is not the complete legal health record.[facility]
--- OUTSIDE RECORDS SUMMARY | 2025-10-07 10:50 | XMS_ITS | Clinical Summary ---
Author Organization [facility], Address [address] [place] [address] Phone Care Team Providers Care Scarf And Anneal Operator Name Role Phone Jenn De La Cruz MD Primary Care Provider [phone] Allergies No known active allergies Medications escitalopram [...] Vaccine (#1) 2025 Insurance [employer] Care Teams Scarf And Anneal Operator Relationship Specialty Start Date End Date Jenn De La Cruz MD [address] [place] [id number] PCP - General Internal Medicine 04/28/22
--- OUTSIDE RECORDS SUMMARY | 2025-10-07 10:50 | XMS_ITS | Encounter Summary ---
Author Organization [facility] Address [facility] [address] [place] [phone] Phone Care Team Providers Care Collection Card Clerk Name Role Phone Isabel Jiménez MD Primary Care Provid er Nolvia Mcelroy MD Primary Care Provider Unavailable Encounter Details Date Type Department Care Team (Late st Contact Info) Description 03/08/2022 Procedure Pass [facility], [facility] Scan - [facility] [address] [place] [address] Social History Tobacco Use Types Packs/Day Years [...] 8:10 AM EDT Mary Irwin RN * [place] Suicide Severity Rating Scale (Screener/Recent Self-Report) Question [...] documented as of this encounter Care Teams Collection Card Clerk Relationship Specialty Start Date End Date Isabel Jiménez MD [address] [place] [address] PCP - General Internal Medicine 03/08/22 01/10/23 Nolvia Mcelroy MD PCP - General Internal Medicine 01/11/23 documented as of this encounter Additional Source Comments The information contained in this document represents components of the legal health record. It is not the complete legal health record.[facility]
== END 2025-10-07 09:33 | disposition home or self-care (01) ==
LOC: HO.HOP 09:25
PROVIDERS: PCP Physician Assistant Medical; Visit Provider Clinical Nurse Specialist Psychiatric/Mental Health
DX: F41.8 Other specified anxiety disorders (principal); F41.1 Generalized anxiety disorder; R41.840 Attention and concentration deficit
CPT/HCPCS: 99214

== ENCOUNTER → 2025-10-07 09:25 | Outpatient (BNVA) | payer OTHER, SELFPAY | PROVIDERS: PCP Physician Assistant Medical; Visit Provider Clinical Nurse Specialist Psychiatric/Mental Health | DX: F41.1 Generalized anxiety disorder (principal); R41.840 Attention and concentration deficit; F41.8 Other specified anxiety disorders | CPT/HCPCS: 99212 ==